=== PATIENT | male | born 1950 | race Hispanic/Latino ===

== ENCOUNTER → 2020-10-20 14:45 | Outpatient (CLI) | payer MEDICARE, SELFPAY ==
--- NOTE | ~2020-10-20 | CT_ITS ---
EXAMINATION: CT lumbar spine wo con DATE: 10/20/2020 15:22 INDICATION: Lumbar radiculopathy. TECHNIQUE: Computed tomography (CT) of the lumbar spine was performed without intravenous contrast. A utomated exposure control and iterative reconstruction technique were employed. The dose-length produ ct was 815.18 mGy-cm. COMPARISON: Lumbar spine CT 02/25/2019 FINDINGS: There is 3 degrees levocurvature of lumbar spine. There is 3 mm retrolisthesis of L3 on L4. Vertebral body heights are normal. There is mildly decreased disc height at L3-L4. The following dis c levels are specifically discussed: L1-L2: The disc does not extend beyond the endplate margin. There is mild bilateral facet joint osteo arthritis. There is no neural foraminal stenosis. There is no central canal stenosis. L2-L3: The disc is mildly bulging. There is mild bilateral facet joint osteoarthritis. There is mild bilateral neural foraminal stenosis. There is no central canal stenosis. L3-L4: The disc is bulging. There is mild bilateral facet joint osteoarthritis. There is mild bilater al neural foraminal stenosis. There is mild central canal stenosis. L4-L5: The disc is bulging. There is mild right and severe left facet joint osteoarthritis. There is mild bilateral neural foraminal stenosis. There is mild central canal stenosis. L5-S1: The disc is bulging. There is mild bilateral facet joint osteoarthritis. There is mild bilater al neural foraminal stenosis. There is mild central canal stenosis. IMPRESSION: 1. Mild lumbar spondylosis, stable from 02/25/2019. Reviewed, dictated and finalized at location A.
== END ==
PROVIDERS: Visit Provider Nurse Practitioner Adult Health
DX: M47.26 Other spondylosis with radiculopathy, lumbar region (principal)
CPT/HCPCS: 72131

== ENCOUNTER 2024-12-27 10:44 | Emergency (ER) | payer MEDICARE, SELFPAY ==
--- NOTE | ~2024-12-27 | XR_ITS ---
XR shoulder RT min 2V Ordering provider: Monika Lester MD History: . R shoulder pain . Comparison: None. FINDINGS: BONES: No acute fracture or dislocation. Cystic changes in the area of the greater tuberosity. JOINT SPACES: The acromioclavicular joint is normal. The glenohumeral joint is normal. SOFT TISSUES: Normal. IMPRESSION: No acute osseous abnormality right shoulder. Degenerative changes in the area of the greater tuberosity which may indicate rotator cuff injury. Reviewed, dictated and finalized at location A. IMPRESSION: No acute osseous abnormality right shoulder. Degenerative changes in the area of the greater tuberosity which may indicate r otator cuff injury.
--- NOTE | ~2024-12-27 | XR_ITS ---
XR chest 2V Ordering provider: Monika Lester MD History: 74 years Male with . R shoulder pain, SHARP PAIN . Comparison: December 20, 2011 FINDINGS: MEDIASTINUM: The cardiac silhouette is not enlarged. Left bipolar pacemaker. Postoperative changes in the mediastinum. LUNGS: No infiltrates, effusions or pneumothorax. OTHER: No free air under the diaphragm. IMPRESSION: No acute cardiopulmonary pathology. Reviewed, dictated and finalized at location A.
--- OUTSIDE RECORDS SUMMARY | 2024-12-27 10:49 | XMS_ITS | Patient Health Record ---
Author Organization [facility] Address [address] [facility] [address] [place] [address] Care Team Providers Care Forest Botany Instructor Name Role Phone Jasen Gonzalez Unavailable [phone] Reason For Referral No Information Medications Medication SIG (Take, Route, Frequency, Duration) Notes Start Date End Date Status Tobramycin 0.3 % 1 drop into affected eye Ophthalmic Four times a day; Duration: 3 days 12/10/2024 Active Losartan Potassium 25 MG TAKE 1 TABLET B Y MOUTH DAILY; Duration: 90 Active Calcitriol 0.25 MCG TAKE 1 CAPSULE BY MO UTH DAILY; Duration: 90 Active Flomax 0.4 MG 1 capsule Orally Onc e a day; Duration: 90 day(s) 03/26/2024 01/11/2025 Active Vitamin D (Ergocalciferol) 1.25 MG (18557 UT) TAKE ONE CAPSULE BY MOUTH ONCE A WEEK; Duration: 90 Active Problems Problem Type SNOMED Code ICD Code Onset Dates Problem Status W/U Status Risk Notes Problem Anemia (804735499) Anemia, unspecified (D64.9) Active confirmed Problem Hypothyroidism (12924040) Hypothyroidism, unspecified (E03.9) Active confirmed Problem Hyperglycemia due to type 2 diabetes mellitus (566804129977216) Type 2 diabetes mellitus with hyperglycemia (E11.65) Active confirmed Problem Hyperlipidemia (73743008) Hyperlipidemia, unspecified (E78.5) Active confirmed Problem Essential hypertension (67531726) Essential (primary) hypertension (I10) Active confirmed Problem Atrial fibrillation (33635917) Unspecified atrial fibrillation (I48.91) Active confirmed Problem Heart failure (29647815) Heart failure, unspecified (I50.9) Active confirmed Problem Proteinuria (84099928) Proteinuria, unspecified (R80.9) Active confirmed Problem Tobacco use (594870112) Tobacco use (Z72.0) Active confirmed Problem Elevated PSA (653144570) Elevated prostate specific antigen (PSA) (R97.20) Active confirmed Problem Chronic kidney disease stage 3A (disorder) (574132900) Chronic kidney disease, stage 3a (N18.31) Active confirmed Problem Elevation of levels of liver transaminase levels (R74.01) Active confirmed Problem Coronary artery disease (23338887) CAD (coronary artery disease) (I25.10) Active confirmed Encounters Encounter Location Date Provider Diagnosis [place] [facility] [address] [place] [address] 01/09/2024 Jasen Singh Chronic kidney disease, stage 3a N18.31 ; Essential (primary) hypertension I10 ; Heart failure, unspecified I50.9 ; Anemia, unspecified D64.9 ; Type 2 diabetes mellitus with hyperglycemia E11.65 and Hypothyroidism, unspecified E03.9 [place] [facility] [address] [place] [address] 03/26/2024 Jasen Singh Chronic kidney disease, stage 3a N18.31 ; Essential (primary) hypertension I10 ; Heart failure, unspecified I50.9 ; Anemia, unspecified D64.9 ; Type 2 diabetes mellitus with hyperglycemia E11.65 and Hypothyroidism, unspecified E03.9 [facility] [place] [facility] [address] [place] [address] 07/08/2024 Jasen Gonzalez Chronic kidney disease, stage 3a N18.31 ; CAD (coronary artery disease) I25.10 ; Hyperkalemia E87.5 and Hyperlipidemia, unspecified E78.5 [place] [facility] [address] [place] [address] 08/13/2024 Jasen Gonzalez Chronic kidney disease, stage 3a N18.31 ; Essential (primary) hypertension I10 ; Heart failure, unspecified I50.9 ; Anemia, unspecified D64.9 ; Type 2 diabetes mellitus with hyperglycemia E11.65 ; Hypothyroidism, unspecified E03.9 ; CAD (coronary artery disease) I25.10 ; Hyperlipidemia, unspecified E78.5 ; Elevation of levels of liver transaminase levels R74.01 and Elevated prostate specific antigen (PSA) R97.20 [place] [facility] [address] [place] [address] 09/16/2024 Jasen Gonzalez Chronic kidney disease, stage [...] Proteinuria, unspecified R80.9 and Tobacco use Z72.0 [place] [facility] [address] [place] [address] 09/17/2024 [facility] Office [address] [place] [address] 10/29/2024 Jasen Gonzalez Chronic kidney disease, stage [...] of levels of liver transaminase levels R74.01 [facility] [address] [place] [address] 12/10/2024 Jasen Gonzalez Chronic kidney disease, stage [...] of levels of liver transaminase levels R74.01 [place] [facility] [address] [place] [address] [facility] [address] [place] [address] [facility] [address] [place] [address] 12/10/2024 Jasen Gonzalez [place] [facility] [address] [facility] [address] [place] [address] 03/26/2024 Jasen Gonzalez [facility] [place] [facility] [address] [place] [address] 04/06/2024 Jasen Gonzalez [place] [facility] [address] [facility] [address] [place] [address] 04/16/2024 Jasen Gonzalez Assessments Encounter Date Diagnosis (ICD Code) Assessment Notes Treatment Notes Treatment Clinical Notes Section Notes 01/09/2024 Chronic kidney disease, stage 3a (ICD-10 - N18.31) 03/26/2024 Chronic kidney disease, stage 3a (ICD-10 - N18.31) 07/08/2024 Chronic kidney disease, stage 3a (ICD-10 - N18.31) 07/08/2024 CAD (coronary artery disease) (ICD-10 - I25.10) 08/13/2024 Essential (primary) hypertension (ICD-10 - I10) 08/13/2024 Chronic kidney disease, stage 3a (ICD-10 - N18.31) 09/16/2024 Chronic kidney disease, stage 2 (mild) (ICD-10 - N18.2) 10/29/2024 Chronic kidney disease, stage 2 (mild) (ICD-10 - N18.2) 12/10/2024 Chronic kidney disease, stage 3a (ICD-10 - N18.31) 12/10/2024 Essential (primary) hypertension (ICD-10 - I10) 10/29/2024 Essential (primary) hypertension (ICD-10 - I10) 09/16/2024 Essential (primary) hypertension (ICD-10 - I10) 08/13/2024 Heart failure, unspecified (ICD-10 - I50.9) 07/08/2024 Hyperkalemia (ICD-10 - E87.5) 03/26/2024 Essential (primary) hypertension (ICD-10 - I10) 01/09/2024 Essential (primary) hypertension (ICD-10 - I10) 01/09/2024 Heart failure, unspecified (ICD-10 - I50.9) 03/26/2024 Heart failure, unspecified (ICD-10 - I50.9) 07/08/2024 Hyperlipidemia, unspecified (ICD-10 - E78.5) 08/13/2024 Anemia, unspecified (ICD-10 - D64.9) 09/16/2024 Heart failure, unspecified (ICD-10 - I50.9) 10/29/2024 Heart failure, unspecified (ICD-10 - I50.9) 12/10/2024 Heart failure, unspecified (ICD-10 - I50.9) 12/10/2024 Anemia, unspecified (ICD-10 - D64.9) 10/29/2024 Anemia, unspecified (ICD-10 - D64.9) 08/13/2024 Type 2 diabetes mellitus with hyperglycemia (ICD-10 - E11.65) 09/16/2024 Anemia, unspecified (ICD-10 - D64.9) 03/26/2024 Anemia, unspecified (ICD-10 - D64.9) 01/09/2024 Anemia, unspecified (ICD-10 - D64.9) 01/09/2024 Type 2 diabetes mellitus with hyperglycemia (ICD-10 - E11.65) 08/13/2024 Hypothyroidism, unspecified (ICD-10 - E03.9) 03/26/2024 Type 2 diabetes mellitus with hyperglycemia (ICD-10 - E11.65) 09/16/2024 Type 2 diabetes mellitus with hyperglycemia (ICD-10 - E11.65) 10/29/2024 Type 2 diabetes mellitus with hyperglycemia (ICD-10 - E11.65) 12/10/2024 Type 2 diabetes mellitus with hyperglycemia (ICD-10 - E11.65) 10/29/2024 Hypothyroidism, unspecified (ICD-10 - E03.9) 12/10/2024 Hypothyroidism, unspecified (ICD-10 - E03.9) 08/13/2024 CAD (coronary artery disease) (ICD-10 - I25.10) 09/16/2024 Hypothyroidism, unspecified (ICD-10 - E03.9) 03/26/2024 Hypothyroidism, unspecified (ICD-10 - E03.9) 01/09/2024 Hypothyroidism, unspecified (ICD-10 - E03.9) 08/13/2024 Hyperlipidemia, unspecified (ICD-10 - E78.5) 10/29/2024 CAD (coronary artery disease) (ICD-10 - I25.10) 09/16/2024 CAD (coronary artery disease) (ICD-10 - I25.10) 12/10/2024 CAD (coronary artery disease) (ICD-10 - I25.10) 12/10/2024 Hyperlipidemia, unspecified (ICD-10 - E78.5) 10/29/2024 Hyperlipidemia, unspecified (ICD-10 - E78.5) 08/13/2024 Elevation of levels of liver transaminase levels (ICD-10 - R74.01) 09/16/2024 Hyperlipidemia, unspecified (ICD-10 - E78.5) 08/13/2024 Elevated prostate specific antigen (PSA) (ICD-10 - R97.20) 09/16/2024 Elevated prostate specific antigen (PSA) (ICD-10 - R97.20) 10/29/2024 Elevated prostate specific antigen (PSA) (ICD-10 - R97.20) 12/10/2024 Elevated prostate specific antigen (PSA) (ICD-10 - R97.20) 12/10/2024 Unspecified atrial fibrillation (ICD-10 - I48.91) 10/29/2024 Unspecified atrial fibrillation (ICD-10 - I48.91) 09/16/2024 Unspecified atrial fibrillation (ICD-10 - I48.91) 09/16/2024 Proteinuria, unspecified (ICD-10 - R80.9) 10/29/2024 Proteinuria, unspecified (ICD-10 - R80.9) 12/10/2024 Proteinuria, unspecified (ICD-10 - R80.9) 12/10/2024 Tobacco use (ICD-10 - Z72.0) 10/29/2024 Tobacco use (ICD-10 - Z72.0) 09/16/2024 Tobacco use (ICD-10 - Z72.0) 10/29/2024 Elevation of levels of liver transaminase levels (ICD-10 - R74.01) 12/10/2024 Elevation of levels of liver transaminase levels (ICD-10 - R74.01) Plan Of Treatment Next Appt Details Provider Name:Jasen Gonzalez , 02/11/2025 03:15:00 PM, [address], [facility] [address], [address],
--- OUTSIDE RECORDS SUMMARY | 2024-12-27 10:50 | XMS_ITS | Data Portability ---
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 Had this now for some time. He has had a previous repair of his right rotator cuff he says it feels very similar to that. He has difficulty raising his arm above the horizontal he is weak in abduction external rotation neurologically he is grossly intact. He has good neck motion without much in the way of radicular symptoms. His x-rays demonstrate narrowing of the acromial humeral space type 2 acromion and some AC joint arthrosis. He also has a pacemaker and defibrillator which certainly makes treatment and obtaining an MRI much more difficult. I injected his left shoulder with 20 mg Kenalog 4 cc 1% lidocaine. For prescription drug management will try a prednisone taper for pain and inflammation. Will also begin a course of therapy and see how he progresses. Anticipate follow-up in a month at discussed. yazan Not available 09/03/2022 11:03:03 10/01/2022 10/01/2022 Patient returns pain left shoulder. He has symptoms suggesting rotator cuff pathology. He has had cortisone therapy without a lot of relief he continues to be symptomatic. Get has give-way and impingement of the left shoulder he has had previous surgery on his right shoulder. Complicating his treatment is the fact he has congestive heart failure he has a pacemaker and has dependence on oxygen. Which make surgery a difficult undertaking. We will obtain an arthrogram with a CT to follow this if there is rotator cuff tearing shoulder in the meantime will continue with therapy and for prescription drug management will try Voltaren 75 mg twice a day. Patient says he has been taking Advil Aleve and gets some relief when he takes those. yazan Not available 10/01/2022 11:00:08 Plan of Treatment Reminders Order Date Submit Date Provider Last Modified By Organization Details Last Modified Time Details Appointments None recorded. Lab None recorded. Referral physical therapist referral - please contact patient to schedule 2022 023 [facility], [address] [place], [address], 11:20:36 Procedures injection/ aspiration joint/burs a (PROC) - in office procedure, administer ed by provider 2022 023 [email or web address] In-Office Order, Internal Use Only DO Not Attach Compendium DO Not Attach Compendium, Do Not Delete/merge, [id number] 10:14:17 Surgeries None recorded. Imaging CT, arthrogram , shoulder - patient to schedule 2022 023 [facility] ([facility]), [address] [place], [address], 12:30:51 XR, shoulder 2022 023 [email or web address] 58 [facility], [address] [place], [address], 3 11:03:36 Medication Orders diclofenac sodium 75 mg tablet,del ayed release 2022 023 [email or web address] 58 [facility]77, [address], [place], [id number], 3 11:00:22 Kenalog 10 mg/mL suspension for injection 2022 023 [email or web address] 58 [facility], [address], [place], [id number], 3 10:45:33 ropivacain e (PF) 5 mg/mL (0.5 %) injection solution 2022 023 [email or web address] 58 [facility] #43203, [address], [place], [id number], 3 10:45:33 prednisone 10 mg tablets in a dose pack 2022 023 [email or web address] #51990, [address], [place], [id number], 10:45:33 Patient TargetsNo targets recorded. Patient InstructionsNo instructions recorded. Reason for Referral Physical Therapist Referral for Pain of left shoulder joint please contact patient to schedule Referring Physician: Nery Carrera, Orthopedic Surgery, Encounter Date: 09/03/2022 Results Created Date Observation Date Name Description Value Unit Range Abnormal Flag Note LastModifiedBy Organization Detail LastModifiedTime 12/21/19 22 12/19/2021 LDCT, chest , for lung cance r georgia lucasg No observ ation record ed. [id number] [facility] [address] [place], [address], 08/14/2022 00:56:51 09/04/19 23 XR, tammy stevenson No observ ation record ed. [email or web address] [facility] [address] [facility], [place], [address], 09/03/2022 11:03:35 01/02/20 23 01/01/2023 CT, tammy stevenson, w/ contr ast [facility] [address] [facility] [place] [address] Patien t Name: GEOFFREYTRA Nati KWADWO Access ion #: [id number] Sex: M : 1949 8 Locati on: RAD Attend ing Physic dann: DEBI ONNERY Orderi ng Physic dann: DEBI ONNERY Exam Date: 023 9:01 AM Exam Name: CT SHOULD ER LT W Admitt ing Diagno sis(es ): RADIOL OGY REPORT - FINAL EXAM: CT SHOULD ER LT W HISTOR Y: 72-yea r-old male with left should er pain. The patien t is not compat ible with MRI second mani to a left chest AICD. COMPAR YEE: Radiog raphs dated 2022; CT scan dated 2020. TECHNI QUE: Axial CT images of the left should er were perfor med after fluoro scopic -guide d left glenoh umeral joint intra- articu lar contra st inject ion. Sagitt al and park l reform atted images were obtain ed. This CT exam was perfor med using one or more of the follow ing dose reduct ion techni ques: Automa mayra exposu re contro l, adjust ment of the mA and/or kV accord ing to patien t size, or use of iterat liberty recons tructi on techni que. FINDIN GS: Page 1 of 3 [facility] Patien t Name: JAZMÍN VIEIRA Access ion #: [id number] Sex: M : 1949 8 Exam Date: 023 9:01 AM Exam Name: CT SHOULD ER LT W Admitt ing Diagno sis(es ): See below. IMPRES ANDREA: 1. No fractu re of the left should er. 2. Full-t hickne ss tear of the spinat us tendon involv es a majori ty of the AP tendon width, with gap measur ing 2.6 cm AP x 2.1 cm longit udinal , with a small slip of the supras pinatu s tendon remain ing intact high reach operator iorly. As a result , inject ed contra st is presen t in the subacr omial- subdel toid region . 3. Irregu lar partia l-thic kness intras ubstan ce tears of the infras pinatu s tendon which may commun icate with the articu lar and/or bursal surfac es. 4. The long head of the biceps tendon is not well charac terize d here. It is uncert ain if this may be artifa ctual or due to tear and distal retrac tion of the tendon . 5. Probab le degene rative tear of the high reach operator ior labrum (image s 122-14 2, series 201). 6. Acromi oclavi cular hypert rophy, type 2 curved acromi on, latera lly downsl oping acromi on, and mild loss of latera l subacr omial space. These findin gs are simila r to that seen on CT scan dated 2020. 7. Narrow ing of the coraco dixie l interv al withou t eviden ce of focal or full-t hickne ss tear of the subsca pulari s tendon . 8. 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 Create d and electr onical ly signed by: Sedrick talley MD Signed Date: 11:21 AM (CT) Dictat ed by: Sedrick talley MD DD: 11:21 AM (CT) Page 2 of 3 [facility] Patien t Name: JAZMÍN VIEIRA Access ion #: [id number] Sex: M : 1949 8 Exam Date: 9:01 AM Exam Name: CT SHOULD ER LT W Admitt ing Diagno sis(es ): DT: 11:21 AM (CT) Page 3 of [address] (Imaging) [address] [place], [address], 01/01/2023 12:39:07 01/02/20 23 01/01/2023 xr inj pro shou arthr w/rep ort [facility] [address] [facility] [place] [address] Patien t Name: JAZMÍN VIEIRA Access ion #: [id number] Sex: M : 1949 8 Locati on: RAD Attend ing Physic dann: DEBI ONNERY Orderi ng Physic dann: DEBI ON NERY Exam Date: 023 8:23 AM Exam Name: XR INJ PRO SHOU ARTHR W/REPO RT Admitt ing Diagno sis(es ): RADIOL OGY REPORT - FINAL EXAM: XR INJ PRO SHOU ARTHR W/REPO RT HISTOR Y: PAIN LT SHOULD ER 72-yea r-old male with left should er pain for 3 years, no known injury . COMPAR YEE: None availa ble. TECHNI QUE: CONTRA ST MIXTUR E: 13 ml Isovue [address] Fluoro time: 0.3 minute s; DAP: 0.298 Gy.cm2 ; 3 fluoro scopic spot views were perfor med. EXPLAN ATION: Risks and benefi ts of the proced ure were discus sed with the patien t, includ ing risks of bleedi ng, infect ion, and allerg ic reacti on. The patien t agreed to procee d and gave inform ed consen t. The left should er was marked on the skin anteri harpal, and the patien t agreed that this was the correc t should er. Time-o ut was perfor med. Page 1 of 3 [facility] Elkin hilliard Name: JAZMÍN VIEIRA Access ion #: [id number] Sex: M : 1949 8 Exam Date: 023 8:23 AM Exam Name: XR INJ PRO SHOU ARTHR W/REPO RT Admitt ing Diagno sis(es ): PROCED URE: The patien t was placed in supine positi on on the fluoro scopy table. The left should er was evalua mayra fluoro scopic ally, in the upper arm was positi oned so that the should er was in ocean export coordinator al rotati on. The contra latera l should er was elevat ed off the table. The skin of the anteri or aspect of the left should er was preppe d and draped steril aleah with Betadi ne. The skin and subcut aneous tissue s were anesth etized with 1% lidoca ine withou t epinep hrine. A 22 gauge spinal needle was advanc ed under fluoro scopic guidan ce into the glenoh umeral joint. Test inject ion of iodina mayra contra st was used to confir m placem ent. Fluoro scopic spot film was obtain ed. Thirte en ml of Isovue [address] were then inject ed into the left glenoh umeral joint. The needle was remove d. Spot films were obtain ed. The skin was cleans ed, and a small bandag e was placed . The patien t tolera mayra the proced ure well, and there were no immedi ate compli cation s. The patien t was transf erred to the CT suite for furthe r imagin g. FINDIN GS: Please see report of CT arthro gram. IMPRES ANDREA: 1. Succes sful left glenoh umeral contra st inject ion. 2. For detail s of findin gs, please see report of CT arthro gram to follow . Create d and electr onical ly signed by: Sedrick talley MD Signed Date: 12:11 PM (CT) Page 2 of 3 [facility] Elkin hilliard Name: JAZMÍN VIEIRA Access ion #: [id number] Sex: M : 1949 8 Exam Date: 023 8:23 AM Exam Name: XR INJ PRO SHOU ARTHR W/REPO RT Admitt ing Diagno sis(es ): Dictat ed by: Sedrick talley MD DD: 12:11 PM (CT) DT: 12:11 PM (CT) Page 3 of [address] (Imaging) [address] [place], [address], 01/01/2023 13:29:05 07/07/19 24 07/02/2023 US, kidne y No observ ation record ed. [email or web address] [facility] [address], [place], [address], 07/16/2023 11:13:43 04/09/2004/08/2024 truei ng/concepcion popmaikel tic resul t No observ ation record ed. [email or web address] [facility] [address], [place], [address], 04/12/2024 08:57:31 Result Notes Documentation Provider Name and Address Organization Details Recorded Time Ct, Shoulder, W/ Contrast : [address] [address] Patient Name: JAZMÍN RAMOS Sex: M : 1950 Location: [facility] Attending Physician: NERY CARRERA Ordering Physician: NERY CARRERA Exam Date: 01/01/2023 9:01 AM Exam Name: CT SHOULDER LT W Admitting Diagnosis(es): RADIOLOGY REPORT - FINAL EXAM: CT SHOULDER LT W HISTORY: 72-year-old male with left shoulder pain. The patient is not compatible with MRI secondary to a left chest AICD. COMPARISON: Radiographs dated 09/03/2022; CT scan dated 08/12/2020. TECHNIQUE: Axial CT images of the left shoulder were performed after fluoroscopic-guided left glenohumeral joint intra-articular contrast injection. Sagittal and coronal reformatted images were obtained. This CT exam was performed using one or more of the following dose reduction techniques: Automated exposure control, adjustment of the mA and/or kV according to patient size, or use of iterative reconstruction technique. FINDINGS: Page 1 of 3 [facility] Patient Name: JAZMÍN RAMOS Sex: M : 1950 Exam Date: 01/01/2023 9:01 AM Exam Name: CT SHOULDER LT W Admitting Diagnosis(es): See below. IMPRESSION: 1. No fracture of the left shoulder. 2. Full-thickness tear of the spinatus tendon involves a majority of the AP tendon width, with gap measuring 2.6 cm AP x 2.1 cm longitudinal, with a small slip of the supraspinatus tendon remaining intact posteriorly. As a result, injected contrast is present in the subacromial-subdeltoid region. 3. Irregular partial-thickness intrasubstance tears of the infraspinatus tendon which may communicate with the articular and/or bursal surfaces. 4. The long head of the biceps tendon is not well characterized here. It is uncertain if this may be artifactual or due to tear and distal retraction of the tendon. 5. Probable degenerative tear of the posterior labrum (images 122-142, series 201). 6. Acromioclavicular hypertrophy, type 2 curved acromion, laterally downsloping acromion, and mild loss of lateral subacromial space. These findings are similar to that seen on CT scan dated 08/12/2020. 7. Narrowing of the coracohumeral interval without evidence of focal or full-thickness tear of the subscapularis tendon. 8. Cardiomegaly, extensive coronary artery disease, and left chest AICD. Created and electronically signed by: Sedrick Lopez MD Signed Date: 01/01/2023 11:21 AM (CT) Dictated by: Sedrick Lopez MD (CT) Page 2 of 3 [facility] Patient Name: JAZMÍN RAMOS Sex: M : 1950 Exam Date: 01/01/2023 9:01 AM Exam Name: CT SHOULDER LT W Admitting Diagnosis(es): (CT) Page 3 of [address] 01/01/2023 12:39:07 Problems Name Problem SNOMED Code Status Onset Date Resolution Date Notes Provider Name and Address Organization Details Recorded Time Pain of left shoulder joint 52993959006 508160 Active 2022 JOSELO Sal, [employer] 3 09:57:42 Asthma-ch ronic obstructi ve pulmonary disease overlap syndrome 35150040214 892306 Active 2021 Not Available [facility] 3 00:50:06 Hyperchol esterolem ia 39699690 Active Not Available [facility] 3 00:50:06 Chronic obstructi ve pulmonary disease 65947545 Completed 201911/16/2020 Not Available [facility] 3 00:50:06 Disorder of thyroid gland 77592544 Active Not Available [facility] 3 00:50:06 Increased frequency of urination 555529500 Active Not Available [facility] 3 00:50:06 Myocardia l infarctio n 86997304 Active 2019 Not Available [facility] 3 00:50:06 Anemia 826136869 Active Not Available [facility] 3 00:50:06 Arthritis 0153533 Active Not Available [facility] 3 00:50:06 Hypertens liberty disorder 20691674 Active Not Available [facility] 3 00:50:06 Prostate specific antigen above reference range 223348320 Active Not Available [facility] 3 00:50:06 Congestiv e heart failure 14605832 Active 2019 Not Available [facility] 3 00:50:07 Disorder of bursa of shoulder region 55344133 Active Not Available [facility] 3 00:50:07 Nicotine dependenc e 08616444 Active 2021 Not Available [facility] 3 00:50:07 Carpal tunnel syndrome 67188834 Active Not Available [facility] 3 00:50:07 Dyspnea on exertion 05703443 Active 2021 Not Available [facility] 3 00:50:07 Obstructi ve sleep apnea syndrome 71587496 Active 2021 Not Available [facility] 3 00:50:07 Ex-smoker 6055626 Active 2020 Not Available [facility] 3 00:50:07 Erectile dysfuncti on 659670744 Active 2021 Not Available [facility] 3 00:50:07 Pulmonary emphysema 13411421 Active Not Available [facility] 3 00:50:07 Dependenc e on supplemen zenaida [employer] 27889034551 7 Active 2021 Not Available [facility] 3 00:50:07 Notes:Past Medical History: Depression Bilateral tinnitus Hypothyroidism Hyperlipidemia Mild intermittent asthma Hypertension Hyperlipidemia CAD s/p OR LVE CHF EF 25% Mild NM BPH Vit D deficiency Osteoarthritis CTS Surgical History: Defibirllator placement 2017 Some problems listed in Document: #[id number] could not be added to this patient's chart. Please review this document and add these problems to the patient's chart manually as needed. Problem Notes None recorded. Procedures Surgical History Date Name Laterality Status Provider Name and Address Organization Details Recorded Time 3 Ortho - Cortisone Injection completed Nery Carrera MD [address] [place] [address], [place] [address], [place], [address], [facility] [employer] 09/03/2022 11:02:00 Imaging Results None recorded. Procedure Notes None recorded. Medical Equipment None Reported. Allergies No known drug allergies Medications Name Sig Start Date Stop Date Status Note LastModified by Organization Details LastModified Time cyclobenzap rine 10 mg tablet TAKE 1 TABLET BY MOUTH EVERY DAY AT BEDTIME 02/22 completed Not Available Not Available Not Available furosemide 40 mg tablet TAKE 1 TABLET BY MOUTH EVERY DAY active Not Available Not Available No t Available promethazin e-DM 6.25 mg-15 mg/5 mL oral syrup 05/02 completed Not Available Not Available Not Available levothyroxi ne 137 mcg tablet TK 1 T PO ONCE D active Not Available Not Available No t Available carvedilol 6.25 mg tablet TAKE 1 TABLET BY MOUTH TWICE DAILY active Not Available Not Available No t Available prednisone 10 mg tablet TK 1 T PO TID FOR 3 DAYS THEN TK 1 T PO BID FOR 2 DAYS THEN TK 1 T PO FOR 1 DAY active Not Available Not Available No t Available azithromyci n 250 mg tablet active Not Available Not Available Not Available ibuprofen 800 mg tablet TAKE 1 TABLET BY MOUTH THREE TIMES DAILY active Not Available Not Available No t Available alprazolam 1 mg tablet TK 1 T PO BID active Not Available Not Available No t Available prednisone 20 mg tablet active Not Available Not Available Not Available clonazepam 0.5 mg tablet TK 1 T PO TID active Not Available Not Available No t Available clobetasol 0.05 % topical cream RUB IN AA BID 11/13 completed Not Available Not Available Not Available ciprofloxac in 500 mg tablet Take 1 tablet twice a day by oral route. active Not Available Not Available No t Available hydrocodone 10 mg-acetamin ophen 325 mg tablet TAKE 1 TABLET BY MOUTH THREE TIMES DAILY active Not Available Not Available No t Available peg-electro lyte solution 420 gram oral solution active Not Available Not Available Not Available triamcinolo ne acetonide 0.1 % topical cream ALICJA A THIN LAYER AA BID active Not Available Not Available No t Available spironolact one 25 mg tablet TAKE 1 TABLET BY MOUTH EVERY DAY active Not Available Not Available No t Available simvastatin 40 mg tablet TAKE 1 TABLET BY MOUTH EVERY DAY active Not Available Not Available No t Available levothyroxi ne 75 mcg tablet TK ONE T PO D active Not Available Not Available No t Available prednisone 10 mg tablets in a dose pack Take 1 tab by mouth, 3 times a day for 3 daysTake 1 tab by mouth 2 times a day for 2 daysTake 1 tab by mouth once a day for 1 day 2022 active Not Available Not Available Not Avai lable levothyroxi ne 100 mcg tablet TAKE 1 TABLET BY MOUTH EVERY DAY ON AN EMPTY STOMACH active Not Available Not Available No t Available potassium chloride ER 20 mEq tablet,exte nded release(par t/cryst) TK 1 T PO D active Not Available Not Available No t Available magnesium oxide 400 mg (241.3 mg magnesium) tablet TAKE 1 TABLET BY MOUTH EVERY DAY active Not Available Not Available No t Available tamsulosin 0.4 mg capsule TK 1 C PO QD AFTER A MEAL 05/02 completed Not Available Not Available Not Available Kenalog 10 mg/mL suspension for injection in office 2022 active [facility]: 0003- [phone]- 20 Not Available Not Available Not Available levothyroxi ne 125 mcg tablet TK 1 T PO QD IN THE MORNING active Not Available Not Available No t Available calcipotrie ne 0.005 % topical cream APPLY AA BID UTD active Not Available Not Available No t Available lisinopril 10 mg tablet TK 1 T PO QD active Not Available Not Available No t Available losartan 25 mg tablet TK 1 T PO QD 05/02 completed Not Available Not Available Not Available nicotine 21 mg/24 hr daily transdermal patch APPLY 1 PATCH EXTERNALL Y TO THE SKIN EVERY DAY 06/26 completed Not Available Not Available Not Available gabapentin 300 mg capsule TAKE 2 CAPSULES BY MOUTH THREE TIMES DAILY active Not Available Not Available No t Available Banophen 25 mg capsule TK 1 T PO QD HS active Not Available Not Available No t Available diclofenac sodium 75 mg tablet,kurt yed release TAKE 1 TABLET BY MOUTH TWICE DAILY 2022 active Not Available Not Available Not Avai lable furosemide 20 mg tablet TAKE 1 TABLET BY MOUTH EVERY DAY 04/19 completed Not Available Not Available Not Available ergocalcife rol (vitamin D2) 1,250 mcg (50,000 unit) capsule TAKE 1 CAPSULE BY MOUTH EVERY 2 WEEKS WITH MEALS active Not Available Not Available No t Available clobetasol 0.05 % topical ointment APPLY THIN LAYER TOPICALLY TO THE AFFECTED AREA TWICE DAILY 02/22 completed Not Available Not Available Not Available Viagra 100 mg tablet Take 1 tablet as needed by oral route. 05/02 completed Not Available Not Available Not Available diazepam 10 mg tablet TK 1 T PO 1 HOUR BEFORE PROCEDURE 05/02 completed Not Available Not Available Not Available methylpredn isolone 4 mg tablets in a dose pack FPD active Not Available Not Available Not Available albuterol sulfate HFA 90 mcg/actuati on aerosol inhaler Inhale 2 puffs every 4-6 hours by inhalatio n route for 30 days. active Not Available Not Available No t Available finasteride 5 mg tablet TAKE 1 TABLET BY MOUTH EVERY DAY 06/26 completed Not Available Not Available Not Available naproxen 500 mg tablet TK 1 T PO BID active Not Available Not Available No t Available levothyroxi ne 112 mcg tablet TAKE 1 TABLET BY MOUTH EVERY DAY IN THE MORNING 06/26 completed Not Available Not Available Not Available amoxicillin 875 mg-potassiu m clavulanate 125 mg tablet TAKE 1 TABLET BY MOUTH EVERY 12 HOURS FOR 10 DAYS 02/22 completed Not Available Not Available Not Available Laxative (bisacodyl) 5 mg tablet TAKE 6 TABLETS BY MOUTH AT 8AM ON 04-23 active Not Available Not Available No t Available duloxetine 30 mg capsule,del ayed release 11/13 completed Not Available Not Available Not Available duloxetine 60 mg capsule,del ayed release TAKE 1 CAPSULE BY MOUTH EVERY DAY 02/22 completed Not Available Not Available Not Available omega-3 acid ethyl esters 1 gram capsule TAKE 1 CAPSULE BY MOUTH ONCE DAILY WITH A MEAL 04/19 completed Not Available Not Available Not Available Fish Oil 340 mg-1,000 mg capsule TAKE 1 CAPSULE BY MOUTH TWICE DAILY WITH FOOD 09/03 completed Not Available Not Available Not Available cholecalcif otto (vitamin D3) 1,250 mcg (50,000 unit) capsule TAKE 1 CAPSULE BY MOUTH EVERY WEEK WITH MEALS 06/26 completed Not Available Not Available Not Available Voltaren 1 % topical gel APPLY 2 GRAMS AA QID 05/02 completed Not Available Not Available Not Available Toviaz 8 mg tablet,exte nded release Take 1 tablet every day by oral route. 05/02 completed Not Available Not Available Not Available Prevnar 13 (PF) 0.5 mL intramuscul ar syringe ADM 0.5ML IM UTD active Not Available Not Available No t Available ropivacaine (PF) 5 mg/mL (0.5 %) injection solution in office 2022 active [facility] [phone] Not Available Not Available Not Available omega 3s 300 mg-dha-epa- fish oil 1,000 mg capsule,del ayed release TAKE 1 CAPSULE BY MOUTH TWICE DAILY WITH MEALS FOR 30 DAYS active Not Available Not Available No t Available Pennsaid 20 mg/gram/act uation (2 %) topical soln in metered-dos e pump APPLY 2 PUMPS TO THE AFFECTED AREAS TWO TIMES DAILY active Not Available Not Available No t Available potassium chloride ER 20 mEq tablet,exte nded release TAKE 1 TABLET BY MOUTH DAILY 04/19 completed Not Available Not Available Not Available Anoro Ellipta 62.5 mcg-25 mcg/actuati on powder for inhalation INHALE 1 PUFF BY MOUTH EVERY DAY DIRECTED 09/03 completed Not Available Not Available Not Available Stiolto Respimat 2.5 mcg-2.5 mcg/actuati on solution for inhalation Inhale 2 puffs every day by inhalatio n route as directed for 30 days. 11/13 completed Not Available Not Available Not Available Entresto 24 mg-26 mg tablet TAKE 1 TABLET BY MOUTH TWICE DAILY active Not Available Not Available No t Available Trelegy Ellipta 100 mcg-62.5 mcg-25 mcg powder for inhalation Inhale 1 puff every day by inhalatio n route as directed for 30 days. 02/22 completed Not Available Not Available Not Available Gloria Segundo 250 mcg-50 mcg/dose powder for inhalation active Not Available Not Available N ot Available COVID-19 test specimen collection TEST DIRECTED 11/13 completed Not Available Not Available Not Available Vitals Date Recorded Body height Provider Name an d Address Organization Details Last Updated DateTime 06/26/2021 162.56 cm Not Available [facility] 3 00:49:04 Date Recorded Body height Provider Name an d Address Organization Details Last Updated DateTime 09/03/2022 162.56 cm JOSELO Sal [facility] 09/03/2022 09:56:18 Date Recorded Body height Body mass index (BMI) Body weight Provider Name and Address Organization Details Last Updated DateTime 10/01/2022 162.56 cm 31.8 kg/m2 46143.59 g NESS Cali ND Marco Vasco [facility] 10/01/2022 10:26:29 Date Recorded Body mass index (BMI) Body height Oxygen saturation Oxygen saturation in Arterial blood by Pulse oximetry Heart rate Body temperature Body weight Systolic And Diastolic Provider Name and Address Organization Details Last Updated DateTime 2 30.6 kg/m2 162.56 cm 97 % 97 % 65 /min 98.1 [degF] 60777.4 4 g 121/69 mm[Hg] Not Available [facility] 3 00:49:03 Date Recorded Body mass index (BMI) Body height Oxygen saturation Oxygen saturation in Arterial blood by Pulse oximetry Heart rate Body temperature Body weight Provider Name and Address Organization Details Last Updated DateTime 2 30.6 kg/m2 162.56 cm 97 % 97 % 70 /min 97.9 [degF] 86943.4 4 g Not Available [facility] 3 00:49:05 Social History Question Answer Notes LastModified by Organizat ion Details LastModified Time Tobacco Smoking Status Current Every Day Smoker Not Available [facility] 08/14/2022 00:43:58 What Was The Date Of Your Most Recent Tobacco Screening? 08/16/2020 [id number] Information not available 08/14/2022 How Much Tobacco Do You Smoke? 0.5 PPD [id number] Information not available 08/14/2022 Has Tobacco Cessation Counseling Been Provided? No [id number] Information not available 08/14/2022 Sex: Unknown Functional Status Question Answer Note LastModified by Organizat ion Details LastModified Time Do you use any illicit or recreational drugs? No [id number] Information not available 08/14/2022 Do you or have you ever used any other forms of tobacco or nicotine? No [id number] Information not available 08/14/2022 Mental Status None recorded. Family History Relationship Description Onset Age of this Age Resolved Age Notes LastModified by Organization Details LastModified Time Brother Diabetes mellitus [id number] Not available 08/14/2022 00:44:23 Brother Hypertensive disorder [id number] Not available 08/14/2022 00:44:23 Father Diabetes mellitus [id number] Not available 08/14/2022 00:44:23 Father Hypertensive disorder [id number] Not available 08/14/2022 00:44:23 Sister Diabetes mellitus [id number] Not available 08/14/2022 00:44:23 Sister Kidney stone [id number] Not available 08/14/2022 00:44:23 Mother Diabetes mellitus [id number] Not available 08/14/2022 00:44:23 Daughter Heart disease [id number] Not available 08/14/2022 00:44:23 Medical History Condition Response ARTHRITIS Y COPD Y HEART DISEASE/HEART PROBLEMS Y HYPERTENSION Y Immunizations Vaccine Type Date Status Note Provider Nam e and Address Organization Details Recorded Time Influenza, split virus, quadrivalent, preservative 5 completed Not Available [facility] 08/14/2022 00:56:23 COVID-19, mRNA, LNP-S, PF, 100 mcg/0.5mL dose or 50 mcg/0.25mL dose 1 completed Not Available [facility] 08/14/2022 00:56:23 COVID-19, mRNA, LNP-S, PF, 100 mcg/0.5mL dose or 50 mcg/0.25mL dose 1 completed Not Available [facility] 08/14/2022 00:56:23 Influenza, high-dose, quadrivalent, PF 0 completed Not Available [facility] 08/14/2022 00:56:24 pneumococcal polysaccharide PPV23 0 completed Not Available [facility] 08/14/2022 00:56:24 Past Encounters Encounter ID Performer Location Encounter Start Date Encounter Closed Date Diagnosis/Indication Diagnosis SNOMED-CT Code Diagnosis ICD10 Code Diagnosis Note [id number] Brook Tian MD [facility] [address] [facility] [address] [place] [address] 08/16/2020 00:00:00 09/06/2020 16:37:24 [id number] Edward Johnson MD [facility] [place] [address] [address] 11/16/2020 00:00:00 11/16/2020 16:05:37 [id number] [facility] [place] [address] [facility] [address] [place] [address] 06/26/2021 00:00:00 06/26/2021 16:10:31 [id number] Aubrey Robledo MD [facility] [address] [place] [id number] 02/22/2022 00:00:00 02/22/2022 16:59:24 [id number] Aubrey Robledo MD [facility] [address] [place] [phone] 04/19/2022 00:00:00 04/19/2022 15:54:37 [id number] Nery Carrera MD [facility] [address] [address] 09/03/2022 09:31:08 09/03/2022 10:33:49 Pain of left shoulder joint 2979058126 6758946 M25.512 [id number] Nery Carrera MD [facility] [address] [address] 10/01/2022 10:17:16 10/01/2022 11:02:17 Pain of left shoulder joint 8744114514 [id number] M25.512 Health Concerns Section Related Observation LastModified by Organization Detai ls LastModified Time None Recorded Concern Status LastModified by Organization Details LastModified Time None Recorded Advance Directives Directive None Recorded Payers Insurance Date Sequence Insurance Name Policy Number Policy Peters Covered Member ID Peters Member ID Guarantor Name 10/01/2022 1 [facility] (MEDICARE REPLACEMENT/ ADVANTAGE - HMO) [id number] Jazmín Barone Tobin [id number] Jazmín Barone Tobin 09/03/2022 2 [place] Kwadwo Tobin [id number] Jazmín Ramos 10/15/2022 1 [place] Jazmín Barone Tobin [id number] Kwadwo Tobin 10/14/2022 2 [employer] (MEDICARE SUPPLEMENT) Jazmín Barone Tobin [id number] Jazmín Barone Tobin 08/26/2022 1 [place] Jazmín Barone Tobin [id number] Jazmín Barone Tobin 08/26/2022 1 [facility] HEALTHCARE OPTION - PLAN A (MEDICARE SUPPLEMENT) Jazmín Ramos [id number] Jazmín Ramos Notes Date Note Type Note Provider Name and Address Organization Details Recorded Time 09/03/2022 text/html ShoulderReported bypatient.Hand Dominance:left Location:anterior; lateral Quality:aching; throbbing; frequent Severity:moderate Duration:continuous since onset Timing:cannot identify; chronic Context:cannot identify Alleviating Factors:ice; rest; elevation; NSAIDs Aggravating Factors:carrying; throwing Associated Symptoms:no numbness; no tingling; no swelling; no redness; no warmth; no ecchymosis; no catching/locking; no buckling; no grinding; no instability; no radiation down arm; no drainage; no fever; no chills; no weight loss; no change in bowel/bladder habits;weakness;poppin g/clicking Patient presents shoulder pain left. Nery Carrera MD [address] [place] [address], [place] [address], [place], [address], [place] [facility] 09/03/2022 11:04:16 10/01/2022 text/html Patient returns shoulder pain left. Got some relief from the injection and the steroids but continues to be symptomatic he has pain with resisted abduction external rotation and pain with overhead motion. Nery Carrera MD [address] [place] [address], [place], [address], [place] [facility] 10/01/2022 11:00:18
--- OUTSIDE RECORDS SUMMARY | 2024-12-27 10:50 | XMS_ITS | Data Portability ---
Author Organization ISIDORO MARSHALLHal Lora Address [address] [place] [address] Assessment No assessment recorded. Plan of Treatment Reminders Order Date Submit Date Provider Last Modified By Organization Details Last Modified Time Details Appointments NEW PATIENT 30 2024 02:00P Eliel Addison MD Not available Not available Not available Lab CMP, serum or plasma 2024 025 MATI BECKHAM, Sam [address], [address], [place], [address], 09/24/2024 09:21:42 lipid panel, serum 2024 025 MATI BECKHAM, Sam [address], [address], [place], [address], 09/24/2024 09:21:40 CBC 2024 025 MATI BECKHAM, Sam [address], [address], [place], [address], 09/24/2024 09:21:45 drug screen, 14 drugs (detectim ed), urine 2024 025 MATI BECKHAM, Sam [address], [address], [place], [address], 10/01/2024 13:24:31 TSH, ultra-sen sitive, serum 2024 025 MATI BECKHAM, Sam [address], [address], [place], [address], 09/24/2024 09:21:43 PSA, total, serum or plasma 2024 025 MATI BECKHAM, Sam [address], [address], [place], [address], 09/24/2024 09:21:44 HbA1c (hemoglob in A1c), blood 2023 024 MATI ARENASRP, Sam [address], [address], [place], [address], 01/20/2024 13:10:24 vitamin B12 + folate, serum or blood 2023 024 MATI BECKHAM, Sam Yad[address], [address], [place], [address], 01/20/2024 13:10:23 CMP, serum or plasma 2023 024 MATI BECKHAM, Sam [address], [address], [place], [address], 01/20/2024 13:10:23 lipid panel, serum 2023 024 MATI ARENASZAINA, Sam Y[address], [address], [place], [address], 01/20/2024 13:10:22 CBC 2023 024 MATI BECKHAM, Sam [address], [address], [place], [address], 01/20/2024 13:10:25 TSH + free T4, serum 2023 024 MATI ARENASZAINA, Sam [address], [address], [place], [address], 01/20/2024 13:10:21 HbA1c (hemoglob in A1c), blood 2022 023 MATI DEEPA, Sam jake [address], [address], [place], [address], 06/05/2023 06:20:19 PSA, total, serum or plasma 2022 023 MATI ARENASZAINA, Sam jake [address], [address], [place], [address], 06/05/2023 06:20:19 CMP, serum or plasma 2022 023 MATI ARENASZAINA, Sam [facility], [address], [place], [address], 06/04/2023 19:08:51 lipid panel, serum 2022 023 MATI DEEPA, Sam [facility], [address], [place], [address], 06/04/2023 19:08:51 CBC 2022 023 MATI BECKHAM, Sam [facility] [address], [address], [place], [address], 06/04/2023 19:08:52 TSH + free T4, serum 2022 023 MATI DEEPA, Sam [facility], [address], [place], [address], 06/05/2023 06:20:18 Referral None recorded. Procedures None recorded. Surgeries None recorded. Imaging None recorded. Medication Orders hydrocodo ne 10 mg-acetam inophen 325 mg tablet 2024 025 [id number], [address] [place] [address], [id number], 09/23/2024 16:59:23 hydrocodo ne 10 mg-acetam inophen 325 mg tablet 2023 024 [facility] #[id number], [address], [place], [id number], 03/23/2024 17:19:49 hydrocodo ne 10 mg-acetam inophen 325 mg tablet 2023 024 [facility] #[id number], [address], [place], [id number], 01/19/2024 12:58:31 hydrocodo ne 10 mg-acetam inophen 325 mg tablet 2023 024 [facility] #[id number], [address], [place], [id number], 09/22/2023 12:53:56 simvastat in 40 mg tablet 2022 023 [facility] #[id number], [address], [place], [id number], 06/04/2023 11:50:13 Patient TargetsNo targets recorded. Patient Instructions Encounter Date Encounter Id Patient Instructions Last Modified By Organization Details Last Modified Time 06/04/2023 [id number] Quitting Tobacco : Care Instructions [email or web address] Not available 06/04/2023 11:50:00 chronic obstructive pulmonary disease (COPD): care instructions Not available 06/04/2023 11:50:00 learning about copd and how to prevent lung infections Not available 06/04/2023 11:49:59 pernicious anemia: care instructions [email or web address] Not available 06/04/2023 11:50:00 learning about high blood pressure [email or web address] Not available 06/04/2023 11:50:00 hypothyroidism: care instructions [email or web address] Not available 06/04/2023 11:49:59 benign prostatic hyperplasia: care instructions [email or web address] Not available 06/04/2023 11:50:00 heart failure: care instructions Not available 06/04/2023 11:49:59 learning about heart failure [email or web address] Not available 06/04/2023 11:49:59 09/22/2023 [id number] A healthy lifestyle: care instructions [email or web address] Not available 09/22/2023 12:03:32 learning about high blood pressure Not available 09/22/2023 12:03:32 hypothyroidism: care instructions [email or web address] Not available 09/22/2023 12:03:32 high cholesterol : care instructions [email or web address] Not available 09/22/2023 12:03:32 01/19/2024 [id number] A healthy lifestyle: care instructions [email or web address] Not available 01/19/2024 12:35:58 pernicious anemia: care instructions Not available 01/19/2024 12:35:58 learning about high blood pressure [email or web address] Not available 01/19/2024 12:35:58 hypothyroidism: care instructions [email or web address] Not available 01/19/2024 12:35:58 heart failure: care instructions [email or web address] Not available 01/19/2024 12:35:59 learning about heart failure [email or web address] Not available 01/19/2024 12:35:58 03/23/2024 [id number] chronic obstructive pulmonary disease (COPD): care instructions [email or web address] Not available 03/23/2024 17:16:22 learning about copd and how to prevent lung infections Not available 03/23/2024 17:16:22 high cholesterol : care instructions [email or web address] Not available 03/23/2024 17:16:22 learning about high blood pressure [email or web address] Not available 03/23/2024 17:16:22 hypothyroidism: care instructions [email or web address] Not available 03/23/2024 17:16:22 heart failure: care instructions Not available 03/23/2024 17:16:22 learning about heart failure Not available 03/23/2024 17:16:22 09/23/2024 [id number] When You Want to Lose Weight: Care Instructions [email or web address] Not available 09/23/2024 17:04:51 Quitting Tobacco : Care Instructions [email or web address] Not available 09/23/2024 17:04:51 learning about high blood pressure [email or web address] Not available 09/23/2024 17:04:51 hypothyroidism: care instructions [email or web address] Not available 09/23/2024 17:04:51 benign prostatic hyperplasia: care instructions Not available 09/23/2024 17:04:51 Reason for Referral None Reported. Results Created Date Observation Date Name Description Value Unit Range Abnormal Flag Note LastModifiedBy Organization Detail LastModifiedTime 06/04/20 23 06/04/2023 LIPID PANEL cholesterol, total 145 mg/dL 100-19 9 Not Available [facility] Department [address] [place], [address], 06/04/2023 19:08:51 06/04/2006/04/2023 LIPID PANEL triglyceride s 76 mg/dL 0-149 Not Available [facility] Department [address] [place], [address], 06/04/2023 19:08:51 06/04/20 23 06/04/2023 LIPID PANEL HDL cholesterol 93 mg/dL 40-999 Not Available [facility] Department [address] [place], [address], 06/04/2023 19:08:51 06/04/20 23 06/04/2023 LIPID PANEL VLDL cholesterol jori 15 mg/dL 5-40 Not Available [facility] Department [address] [place], [address], 06/04/2023 19:08:51 06/04/20 23 06/04/2023 LIPID PANEL LDL chol calc ([facility]) 47 mg/dL 0-[address] [facility] Department [address] [place], [address], 06/04/2023 19:08:51 06/04/20 23 06/04/2023 COMP. METAB OLIC PANEL (14) glucose 81 mg/dL 70-99 Not Available [facility] Department [address] [place], [address], 06/04/2023 19:08:51 06/04/20 23 06/04/2023 COMP. METAB OLIC PANEL (14) BUN 22 mg/dL 8-27 Not Available [facility] Department [address] [place], [address], 06/04/2023 19:08:51 06/04/20 23 06/04/2023 COMP. METAB OLIC PANEL (14) creatinine 1.60 mg/dL 0.76-1 .27 above high normal Not Available [facility] Department [address] [place], [address], 06/04/2023 19:08:51 06/04/20 23 06/04/2023 COMP. METAB OLIC PANEL (14) eGFR 45 >=60 below low normal Units for eGFR value s are mL/mi n/1.7 3 The eGFR Calcu latio n has not been valid ated for patie nts under the age of 18. If test resul ts are displ ayed for a patie nt under the age of 18, disre silverio that value . Not Available [facility] Department [address] [place] [address], [address], 06/04/2023 19:08:51 06/04/20 23 06/04/2023 COMP. METAB OLIC PANEL (14) BUN/creatini ne ratio 14 10-24 Not Available [facility] Department [address] [place] [address], [address], 06/04/2023 19:08:51 06/04/20 23 06/04/2023 COMP. METAB OLIC PANEL (14) sodium 137 mmol/ L 134-14 4 Not Available [facility] Department [address] [place] [address], [address], 06/04/2023 19:08:51 06/04/20 23 06/04/2023 COMP. METAB OLIC PANEL (14) potassium 4.5 mmol/ L 3.5-5. 2 Not Available [facility] Department [address] [place] [address], [address], 06/04/2023 19:08:51 06/04/20 23 06/04/2023 COMP. METAB OLIC PANEL (14) chloride 101 mmol/ L 96-106 Not Available [facility] Department [address] [place], [address], 06/04/2023 19:08:51 06/04/20 23 06/04/2023 COMP. METAB OLIC PANEL (14) carbon dioxide, total 25 mmol/ L 20-29 Not Available [facility] Department [address] [place] [address], [address], 06/04/2023 19:08:51 06/04/20 23 06/04/2023 COMP. METAB OLIC PANEL (14) calcium 9.3 mg/dL 8.6-10 .2 Not Available [facility] Department [address] [place] [address], [address], 06/04/2023 19:08:51 06/04/20 23 06/04/2023 COMP. METAB OLIC PANEL (14) protein, total 7.0 g/dL 6.0-8. 5 Not Available [facility] Department [address] [place], [address], 06/04/2023 19:08:51 06/04/20 23 06/04/2023 COMP. METAB OLIC PANEL (14) albumin 4.3 g/dL 3.8-4. 8 Not Available [facility] Department [address] [place] [address], [address], 06/04/2023 19:08:51 06/04/20 23 06/04/2023 COMP. METAB OLIC PANEL (14) globulin, total 2.7 g/dL 1.5-4. 5 Not Available [facility] Department [address] [place] [address], [address], 06/04/2023 19:08:51 06/04/20 23 06/04/2023 COMP. METAB OLIC PANEL (14) A/G ratio 2.0 1.2-2. 2 Not Available [facility] Department [address] [place], [address], 06/04/2023 19:08:51 06/04/20 23 06/04/2023 COMP. METAB OLIC PANEL (14) bilirubin, total 0.2 mg/dL 0.0-1. 2 Not Available [facility] Department [address] [place], [address], 06/04/2023 19:08:51 06/04/20 23 06/04/2023 COMP. METAB OLIC PANEL (14) alkaline phosphatase 80 IU/L 44-121 Not Available [facility] Department [address] [place] [address], [address], 06/04/2023 19:08:51 06/04/20 23 06/04/2023 COMP. METAB OLIC PANEL (14) AST (SGOT) 22 IU/L 0-40 Not Available [facility] Department [address] [place], [address], 06/04/2023 19:08:51 06/04/20 23 06/04/2023 COMP. METAB OLIC PANEL (14) ALT (SGPT) 23 IU/L 0-44 Not Available [facility] Department [address] [place] [address], [address], 06/04/2023 19:08:51 06/04/20 23 06/04/2023 CBC, PLATE LET, NO DIFFE RENTI AL WBC 9.0 x10e3 /uL 3.4-10 .8 Not Available [facility] Department [address] [place] [address], [address], 06/04/2023 19:08:52 06/04/20 23 06/04/2023 CBC, PLATE LET, NO DIFFE RENTI AL RBC 4.29 x10e6 /uL 4.14-5 .80 Not Available [facility] Department [address] [place] [address], [address], 06/04/2023 19:08:52 06/04/20 23 06/04/2023 CBC, PLATE LET, NO DIFFE RENTI AL hemoglobin 11.1 g/dL 13.0-1 7.7 below low normal Not Available [facility] Department [address] [place], [address], 06/04/2023 19:08:52 06/04/20 23 06/04/2023 CBC, PLATE LET, NO DIFFE RENTI AL hematocrit 36.6 % 37.5-5 1.0 below low normal Not Available [facility] Department [address] [place], [address], 06/04/2023 19:08:52 06/04/20 23 06/04/2023 CBC, PLATE LET, NO DIFFE RENTI AL MCV 85 fL 79-97 Not Available [facility] Department [address] [place], [address], 06/04/2023 19:08:52 06/04/20 23 06/04/2023 CBC, PLATE LET, NO DIFFE RENTI AL MCH 25.9 pg 26.6-3 3.0 below low normal Not Available [facility] Department [address] [place], [address], 06/04/2023 19:08:52 06/04/20 23 06/04/2023 CBC, PLATE LET, NO DIFFE RENTI AL MCHC 30.3 g/dL 31.5-3 5.7 below low normal Not Available [facility] Department [address] [place], [address], 06/04/2023 19:08:52 06/04/20 23 06/04/2023 CBC, PLATE LET, NO DIFFE RENTI AL RDW 16.1 % 11.5-1 4.5 above high normal Not Available [facility] Department [address] [place], [address], 06/04/2023 19:08:52 06/04/20 06/04/2023 CBC, PLATE LET, NO DIFFE RENTI AL platelets 208 x10e3 /uL 150-45 0 Mean Plate let Volum e 10.7 fL 8.9-1 2.7 N Not Available [facility] Department [address] [place], [address], 06/04/2023 19:08:52 06/04/20 23 06/04/2023 CBC, PLATE LET, NO DIFFE FLORINDA AL NRBC 0 % 0-0 Not Available [facility] Department [address] [place], [address], 06/04/2023 19:08:52 06/04/20 23 06/05/2023 TSH+F REE T4 TSH 4.020 uIU/m L 0.450- 4.500 Not Available [facility] ([facility]) [address] [facility], [place], [address], 06/05/2023 06:20:18 06/04/20 23 06/05/2023 TSH+F REE T4 T4,free(dire ct) 1.48 NG/dL 0.82-1 .77 Not Available [facility] ([facility]) [address] [facility], [place], [address], 06/05/2023 06:20:18 06/04/20 23 06/05/2023 HEMOG LOBIN A1C hemoglobin A1C 5.9 % 4.8-5. 6 above high normal Predi abete s: 5.7 - 6.4 Diabe kavita: >6.4 Glyce angle contr ol for adult s with diabe kavita: <7.0 Not Available [facility] ([facility]) [address] [place], [address], 06/05/2023 06:20:19 06/04/20 23 06/05/2023 PROST ATE-S PECIF IC AG prostate specific Ag 2.8 NG/mL 0.0-4. 0 Deisi ECLIA metho dolog y. Accor ding to the Ameri can [employer]o g[employer] iatio n, Serum PSA shoul d decre ase and remai n at undet ectab le level s after radic al prost atect chica. The AUA defin es bioch emica l recur rence as an initi al PSA value 0.2 ng/mL or great er follo wed by a subse quent confi rmato ry PSA value 0.2 ng/mL or great er. Value s obtai luna with diffe rent assay metho ds or kits canno t be used inter lewis eably . Resul ts canno t be inter prete d as absol qawalangin evide nce of the prese nce or absen ce of malig nant disea se. Not Available [facility] ([facility]) [address] [facility], [place], [address], 06/05/2023 06:20:19 09/01/19 24 09/08/2023 COMPL IANCE DRUG JOSIAS SIS, UR summary report (summary) FINAL ===== ===== ===== ===== ===== ===== ===== ===== ===== ===== ===== ===== ===== === TOXAS SURE COMP DRUG JOSIAS SIS,U R ===== ===== ===== ===== ===== ===== ===== ===== ===== ===== ===== ===== ===== === Test Resul t Flag Units Drug Prese nt Gabap entin PRESE NT Aceta minop hen PRESE NT ===== ===== ===== ===== ===== ===== ===== ===== ===== ===== ===== ===== ===== === Test Resul t Flag Units Ref Range Creat inine 42 mg/dL >=20 ===== ===== ===== ===== ===== ===== ===== ===== ===== ===== ===== ===== ===== === Decla red Medic ation s: Medic ation list was not provi ded. ===== ===== ===== ===== ===== ===== ===== ===== ===== ===== ===== ===== ===== === For clini jori consu ltati on, pleas e call . ===== ===== ===== ===== ===== ===== ===== ===== ===== ===== ===== ===== ===== === Not Available [facility] ([facility]) [address] [place], [address], 09/08/2023 17:09:38 09/01/19 24 09/08/2023 COMPL IANCE DRUG JOSIAS SIS, UR pdf . Not Available [facility] ([facility]) [address] [place], [address], 09/08/2023 17:09:38 01/19/20 24 01/20/2024 TSH+F REE T4 TSH 2.160 uIU/m L 0.450- 4.500 Not Available [facility] ([facility]) [address] [place], [address], 01/20/2024 13:10:21 01/19/2001/20/2024 TSH+F REE T4 T4,free(dire ct) 1.40 NG/dL 0.82-1 .77 Not Available [facility] ([facility]) [address] [place], [address], 01/20/2024 13:10:21 01/19/20 24 01/20/2024 LIPID PANEL cholesterol, total 124 mg/dL 100-19 9 Not Available [facility] ([facility]) [address] [place], [address], 01/20/2024 13:10:22 01/19/20 24 01/20/2024 LIPID PANEL triglyceride s 106 mg/dL 0-149 Not Available [facility]) [address] [place], [address], 01/20/2024 13:10:22 01/19/20 24 01/20/2024 LIPID PANEL HDL cholesterol 69 mg/dL >39 Not Available [facility]) [address] [place], [address], 01/20/2024 13:10:22 01/19/20 24 01/20/2024 LIPID PANEL VLDL cholesterol jori 19 mg/dL 5-40 Not Available [facility]) [address] [place], [address], 01/20/2024 13:10:22 01/19/20 24 01/20/2024 LIPID PANEL LDL chol calc ([facility]) 36 mg/dL 0-99 Not Available [facility]) [address] [place], [address], 01/20/2024 13:10:22 01/19/20 24 01/20/2024 COMP. METAB OLIC PANEL (14) glucose - mg/dL Test not perfo rmed. Serum was in conta ct with cells when recei samantha which will make the resul t inacc urate . Not Available [facility] ([facility]) [address] [place], [address], 01/20/2024 13:10:22 01/19/20 24 01/20/2024 COMP. METAB OLIC PANEL (14) BUN 14 mg/dL 8-27 Not Available [facility] ([facility]) [address] [facility], [place], [address], 01/20/2024 13:10:22 01/19/20 24 01/20/2024 COMP. METAB OLIC PANEL (14) creatinine 1.41 mg/dL 0.76-1 .27 above high normal Not Available [facility] ([facility]) [address] [facility], [place], [address], 01/20/2024 13:10:22 01/19/20 24 01/20/2024 COMP. METAB OLIC PANEL (14) eGFR 53 mL/mi n/1.7 3 >59 below low normal Not Available [facility] ([facility]) [address] [facility], [place], [address], 01/20/2024 13:10:22 01/19/20 24 01/20/2024 COMP. METAB OLIC PANEL (14) BUN/creatini ne ratio 10 10-24 Not Available [facility]) [address] [facility], [place], [address], 01/20/2024 13:10:22 01/19/20 24 01/20/2024 COMP. METAB OLIC PANEL (14) sodium 137 mmol/ L 134-14 4 Not Available [facility] ([facility]) [address] [facility], [place], [address], 01/20/2024 13:10:22 01/19/20 24 01/20/2024 COMP. METAB OLIC PANEL (14) potassium - mmol/ L Test not perfo rmed. Serum was in conta ct with cells when recei samantha which will make the resul t inacc urate . Not Available [facility] ([facility]) [address] [facility], [place], [address], 01/20/2024 13:10:22 01/19/20 24 01/20/2024 COMP. METAB OLIC PANEL (14) chloride 101 mmol/ L 96-106 Not Available [facility] ([facility]) [address] [facility], [place], [address], 01/20/2024 13:10:22 01/19/20 24 01/20/2024 COMP. METAB OLIC PANEL (14) carbon dioxide, total 20 mmol/ L 20- Not Available [facility] ([facility]) [address], [place], [address], 01/20/2024 13:10:22 01/19/20 24 01/20/2024 COMP. METAB OLIC PANEL (14) calcium 9.3 mg/dL 8.6-10 .2 Not Available [facility] ([facility]) [address] [place], [address], 01/20/2024 13:10:22 01/19/20 24 01/20/2024 COMP. METAB OLIC PANEL (14) protein, total 6.7 g/dL 6.0-8. 5 Not Available [facility] ([facility]) [address] [facility], [place], [address], 01/20/2024 13:10:22 01/19/20 24 01/20/2024 COMP. METAB OLIC PANEL (14) albumin 4.0 g/dL 3.8-4. 8 Not Available [facility] ([facility]) [address] [facility], [place], [address], 01/20/2024 13:10:22 01/19/20 24 01/20/2024 COMP. METAB OLIC PANEL (14) globulin, total 2.7 g/dL 1.5-4. 5 Not Available [facility] ([facility]) [address] [place] [place], [address], 01/20/2024 13:10:22 01/19/20 24 01/20/2024 COMP. METAB OLIC PANEL (14) bilirubin, total 0.3 mg/dL 0.0-1. 2 Not Available [facility] ([facility]) [address] [place] [place], [address], 01/20/2024 13:10:22 01/19/20 24 01/20/2024 COMP. METAB OLIC PANEL (14) alkaline phosphatase 87 IU/L 44-121 Not Available [facility]) [address] [facility], [place], [address], 01/20/2024 13:10:22 01/19/20 24 01/20/2024 COMP. METAB OLIC PANEL (14) AST (SGOT) 28 IU/L 0-40 Not Available [facility] ([facility]) [address] [place] [place], [address], 01/20/2024 13:10:22 01/19/20 24 01/20/2024 COMP. METAB OLIC PANEL (14) ALT (SGPT) 16 IU/L 0-44 Not Available [facility] ([facility]) [address] [facility], [place], [address], 01/20/2024 13:10:22 01/19/20 24 01/20/2024 VITAM IN B12 AND FOLAT E vitamin B12 733 pg/mL 232-12 45 Not Available [facility] ([facility]) [address] [facility], [place], [address], 01/20/2024 13:10:23 01/19/20 24 01/20/2024 VITAM IN B12 AND FOLAT E folate (folic acid), serum 18.3 NG/mL >3.0 A serum folat e rossana ntrat ion of less than 3.1 ng/mL is consi dered to repre sent clini jori defic iency . Not Available [facility] ([facility]) [address] [facility], [place], [address], 01/20/2024 13:10:23 01/19/20 24 01/20/2024 HEMOG LOBIN A1C hemoglobin A1C 5.7 % 4.8-5. 6 above high normal Predi abete s: 5.7 - 6.4 Diabe kavita: >6.4 Glyce angle contr ol for adult s with diabe kavita: <7.0 Not Available [facility] ([facility]) [address] [facility], [place], [address], 01/20/2024 13:10:24 01/19/20 24 01/20/2024 CBC, PLATE LET, NO DIFFE RENTI AL WBC 7.2 x10e3 /uL 3.4-10 .8 Not Available [facility] ([facility]) [address] [facility], [place], [address], 01/20/2024 13:10:25 01/19/2001/20/2024 CBC, PLATE LET, NO DIFFE RENTI AL RBC 4.37 x10e6 /uL 4.14-5 .80 Not Available [facility] ([facility]) [address] [facility], [place], [address], 01/20/2024 13:10:25 01/19/2001/20/2024 CBC, PLATE LET, NO DIFFE RENTI AL hemoglobin 12.8 g/dL 13.0-1 7.7 below low normal Not Available [facility] ([facility]) [address] [facility], [place], [address], 01/20/2024 13:10:25 01/19/2001/20/2024 CBC, PLATE LET, NO DIFFE RENTI AL hematocrit 40.8 % 37.5-5 1.0 Not Available [facility] ([facility]) [address] [place], [address], 01/20/2024 13:10:25 01/19/2001/20/2024 CBC, PLATE LET, NO DIFFE RENTI AL MCV 93 fL 79-97 Not Available [facility] ([facility]) [address] [facility], [place], [address], 01/20/2024 13:10:25 01/19/2001/20/2024 CBC, PLATE LET, NO DIFFE RENTI AL MCH 29.3 pg 26.6-3 3.0 Not Available [facility] ([facility]) [address] [place], [address], 01/20/2024 13:10:25 01/19/20 24 01/20/2024 CBC, PLATE LET, NO DIFFE RENTI AL MCHC 31.4 g/dL 31.5-3 5.7 below low normal Not Available [facility] ([facility]) [address] [place], [address], 01/20/2024 13:10:25 01/19/20 24 01/20/2024 CBC, PLATE LET, NO DIFFE RENTI AL RDW 13.2 % 11.6-1 5.4 Not Available [facility] ([facility]) [address] [place], [address], 01/20/2024 13:10:25 01/19/20 24 01/20/2024 CBC, PLATE LET, NO DIFFE RENTI AL platelets 185 x10e3 /uL 150-45 0 Not Available [facility] ([facility]) [address] [place], [address], 01/20/2024 13:10:25 09/24/19 25 09/24/2024 LIPID PANEL cholesterol, total 144 mg/dL 100-19 9 Not Available [facility] ([facility]) [address] [place], [address], 09/24/2024 09:21:40 09/24/19 25 09/24/2024 LIPID PANEL triglyceride s 94 mg/dL 0-149 Not Available [facility] ([facility]) [address] [place], [address], 09/24/2024 09:21:40 09/24/19 25 09/24/2024 LIPID PANEL HDL cholesterol 84 mg/dL >39 Not Available [facility] ([facility]) [address] [place], [address], 09/24/2024 09:21:40 09/24/19 25 09/24/2024 LIPID PANEL VLDL cholesterol jori 17 mg/dL 5-40 Not Available [facility] ([facility]) [address] [place], [address], 09/24/2024 09:21:40 09/24/19 25 09/24/2024 LIPID PANEL LDL chol calc ([facility]) 43 mg/dL 0-99 Not Available [facility] ([facility]) [address] [place], [address], 09/24/2024 09:21:40 09/24/19 25 09/24/2024 COMP. METAB OLIC PANEL (14) glucose 83 mg/dL 70-99 Not Available [facility] ([facility]) [address] [place], [address], 09/24/2024 09:21:41 09/24/19 25 09/24/2024 COMP. METAB OLIC PANEL (14) BUN 18 mg/dL 8-27 Not Available [facility] ([facility]) [address] [place], [address], 09/24/2024 09:21:41 09/24/19 25 09/24/2024 COMP. METAB OLIC PANEL (14) creatinine 1.18 mg/dL 0.76-1 .27 Not Available [facility] ([facility]) [address] [place], [address], 09/24/2024 09:21:41 09/24/19 25 09/24/2024 COMP. METAB OLIC PANEL (14) eGFR 65 mL/mi n/1.7 3 >59 Not Available [facility] ([facility]) [address] [place], [address], 09/24/2024 09:21:41 09/24/19 25 09/24/2024 COMP. METAB OLIC PANEL (14) BUN/creatini ne ratio 15 10-24 Not Available [facility] ([facility]) [address] [facility], [place], [address], 09/24/2024 09:21:41 09/24/19 25 09/24/2024 COMP. METAB OLIC PANEL (14) sodium 137 mmol/ L 134-14 4 Not Available [facility] ([facility]) [address] [facility], [place], [address], 09/24/2024 09:21:41 09/24/19 25 09/24/2024 COMP. METAB OLIC PANEL (14) potassium 4.8 mmol/ L 3.5-5. 2 Not Available [facility] ([facility]) [address] [facility], [place], [address], 09/24/2024 09:21:41 09/24/19 25 09/24/2024 COMP. METAB OLIC PANEL (14) chloride 101 mmol/ L 96-106 Not Available [facility] ([facility]) [address] [facility], [place], [address], 09/24/2024 09:21:41 09/24/19 25 09/24/2024 COMP. METAB OLIC PANEL (14) carbon dioxide, total 21 mmol/ L 20-29 Not Available [facility] ([facility]) [address] [place] [place], [address], 09/24/2024 09:21:41 09/24/19 25 09/24/2024 COMP. METAB OLIC PANEL (14) calcium 10.1 mg/dL 8.6-10 .2 Not Available [facility] ([facility]) [address] [place] [place], [address], 09/24/2024 09:21:41 09/24/19 25 09/24/2024 COMP. METAB OLIC PANEL (14) protein, total 7.4 g/dL 6.0-8. 5 Not Available [facility] ([facility]) [address] [facility], [place], [address], 09/24/2024 09:21:41 09/24/19 25 09/24/2024 COMP. METAB OLIC PANEL (14) albumin 4.5 g/dL 3.8-4. 8 Not Available [facility] ([facility]) [address] [facility], [place], [address], 09/24/2024 09:21:41 09/24/19 25 09/24/2024 COMP. METAB OLIC PANEL (14) globulin, total 2.9 g/dL 1.5-4. 5 Not Available [facility] ([facility]) [address] [facility], [place], [address], 09/24/2024 09:21:41 09/24/19 25 09/24/2024 COMP. METAB OLIC PANEL (14) bilirubin, total 0.5 mg/dL 0.0-1. 2 Not Available [facility] ([facility]) [address] [facility], [place], [address], 09/24/2024 09:21:41 09/24/19 25 09/24/2024 COMP. METAB OLIC PANEL (14) alkaline phosphatase 105 IU/L 44-121 Not Available [facility] ([facility]) [address] [facility], [place], [address], 09/24/2024 09:21:41 09/24/19 25 09/24/2024 COMP. METAB OLIC PANEL (14) AST (SGOT) 29 IU/L 0-40 Not Available [facility] ([facility]) [address] [facility], [place], [address], 09/24/2024 09:21:41 09/24/19 25 09/24/2024 COMP. METAB OLIC PANEL (14) ALT (SGPT) 19 IU/L 0-44 Not Available [facility] ([facility]) [address] [facility], [place], [address], 09/24/2024 09:21:41 09/24/19 25 09/24/2024 TSH TSH 1.190 uIU/m L 0.450- 4.500 Not Available [facility] ([facility]) [address] [facility], [place], [address], 09/24/2024 09:21:43 09/24/1909/24/2024 PROST ATE-S PECIF IC AG prostate specific Ag 5.5 NG/mL 0.0-4. 0 above high normal Deisi ECLIA metho dolog y. Accor ding to the [employer]i [employer] i[employer] n, Serum PSA shoul d decre ase and remai n at undet ectab le level s after radic al prost atect chica. The AUA defin es bioch emica l recur rence as an initi al PSA value 0.2 ng/mL or great er follo wed by a subse quent confi rmato ry PSA value 0.2 ng/mL or great er. Value s obtai luna with diffe rent assay metho ds or kits canno t be used inter lewis eably . Resul ts canno t be inter prete d as absol qawalangin evide nce of the prese nce or absen ce of arnie patel se. Not Available [facility] ([facility]) [address] [facility], [place], [address], 09/24/2024 09:21:44 09/24/1909/24/2024 CBC, PLATE LET, NO DIFFE RENTI AL WBC 9.4 x10e3 /uL 3.4-10 .8 Not Available [facility] ([facility]) [address] [place], [address], 09/24/2024 09:21:45 09/24/1909/24/2024 CBC, PLATE LET, NO DIFFE RENTI AL RBC 4.17 x10e6 /uL 4.14-5 .80 Not Available [facility] ([facility]) [address] [place], [address], 09/24/2024 09:21:45 09/24/1909/24/2024 CBC, PLATE LET, NO DIFFE RENTI AL hemoglobin 12.1 g/dL 13.0-1 7.7 below low normal Not Available [facility] ([facility]) [address] [facility], [place], [address], 09/24/2024 09:21:45 09/24/1909/24/2024 CBC, PLATE LET, NO DIFFE RENTI AL hematocrit 37.8 % 37.5-5 1.0 Not Available [facility] ([facility]) [address] [place], [address], 09/24/2024 09:21:45 09/24/1909/24/2024 CBC, PLATE LET, NO DIFFE RENTI AL MCV 91 fL 79-97 Not Available [facility] ([facility]) [address] [place], [address], 09/24/2024 09:21:45 09/24/1909/24/2024 CBC, PLATE LET, NO DIFFE RENTI AL MCH 29.0 pg 26.6-3 3.0 Not Available [facility] ([facility]) [address] [place], [address], 09/24/2024 09:21:45 09/24/1909/24/2024 CBC, PLATE LET, NO DIFFE RENTI AL MCHC 32.0 g/dL 31.5-3 5.7 Not Available [facility] ([facility]) [address] [place], [address], 09/24/2024 09:21:45 09/24/1909/24/2024 CBC, PLATE LET, NO DIFFE RENTI AL RDW 13.0 % 11.6-1 5.4 Not Available [facility] ([facility]) [address] [place], [address], 09/24/2024 09:21:45 09/24/19 25 09/24/2024 CBC, PLATE LET, NO DIFFE RENTI AL platelets 203 x10e3 /uL 150-45 0 Not Available [facility] ([facility]) [address] [facility], [place], [address], 09/24/2024 09:21:45 09/24/19 25 10/01/2024 COMPL IANCE DRUG JOSIAS SIS, UR summary report (summary) FINAL ===== ===== ===== ===== ===== ===== ===== ===== ===== ===== ===== ===== ===== === TOXAS SURE COMP DRUG JOSIAS SIS,U R ===== ===== ===== ===== ===== ===== ===== ===== ===== ===== ===== ===== ===== === Speci men Alert Note: Urina ry creat inine is low; abili ty to detec t some drugs may be compr omise d. Inter pret resul ts with cauti on. ===== ===== ===== ===== ===== ===== ===== ===== ===== ===== ===== ===== ===== === Test Resul t Flag Units Drug Prese nt [place] codon e 788 ng/mg creat [place] morph one 681 ng/mg creat Dihyd rocod eine 438 ng/mg creat Norhy droco done 788 ng/mg creat Sourc es of hydro codon e inclu de sched uled presc ripti on medic ation s. [place] morph one, dihyd rocod eine and norhy droco done are expec mayra metab olite s of hydro codon e. [place] morph one and dihyd rocod eine are also avail able as sched uled presc ripti on medic ation s. Gabap entin PRESE NT Aceta minop hen PRESE NT ===== ===== ===== ===== ===== ===== ===== ===== ===== ===== ===== ===== ===== === Test Resul t Flag Units Ref Range Creat inine 16 L mg/dL >=20 ===== ===== ===== ===== ===== ===== ===== ===== ===== ===== ===== ===== ===== === Decla red Medic ation s: Medic ation list was not provi ded. ===== ===== ===== ===== ===== ===== ===== ===== ===== ===== ===== ===== ===== === For clini jori consu ltati on, pleas e call [phone]. ===== ===== ===== ===== ===== ===== ===== ===== ===== ===== ===== ===== ===== === Not Available [facility] ([facility]) [address] [facility], [place], [address], 10/01/2024 13:24:30 09/24/19 25 10/01/2024 COMPL IANCE DRUG JOSIAS SIS, UR pdf . Not Available [facility] ([facility]) [address] [facility], [place], [address], 10/01/2024 13:24:30 10/23/19 25 10/22/2024 Hemog lobin A1c/H emogl obin. total in Blood hemoglobin A1C/hemoglob in.total in blood 6 % low: 4%high : 6% normal Not Available Not Available 10/27/2024 23:03:56 10/23/19 25 10/22/2024 Thyro tropi n [Unit s/vol ume] in Serum or Plasm a by Detec tion limit <= 0.005 mIU/L thyrotropin [units/volum e] in serum or plasma by detection limit <= 0.005 mIU/L 1.43 uIU/m L low: 0.465u IU/mLh igh: 4.68uI U/mL normal Not Available Not Available 10/27/2024 23:03:56 10/23/19 25 10/22/2024 25-hy droxy vitam in D3 [Mass /volu me] in Serum or Plasm a 25-hydroxyvi tamin D3 [mass/volume ] in serum or plasma 70.8 NG/mL low: 30NG/m Lhigh: 100NG/ mL normal Not Available Not Available 10/27/2024 23:03:56 10/23/19 25 10/22/[address] [Mass /volu me] in Serum or Plasm a parathyrin.i ntact [mass/volume ] in serum or plasma 55.7 pg/mL low: 24pg/m Lhigh: 78pg/m L normal Not Available Not Available 10/27/2024 23:03:56 10/23/19 25 10/22/2024 Micro album in/Cr eatin ine [Rati o] in Urine creatinine [mass/volume ] in urine 87.3 mg/dL normal Not Available Not Available 0 10/27/2024 23:03:56 10/23/19 25 10/22/2024 Micro album in/Cr eatin ine [Rati o] in Urine microalbumin [mass/volume ] in urine 8.4 mg/L low: 0mg/Lh igh: 16.6mg /L normal Not Available Not Available 10/27/2024 23:03:56 10/23/19 25 10/22/2024 Micro album in/Cr eatin ine [Rati o] in Urine microalbumin /creatinine [ratio] in urine 10 mcg/m g low: 0mcg/m ghigh: 29mcg/ mg normal Not Available Not Available 10/27/2024 23:03:56 10/23/19 25 10/22/2024 Eryth rocyt e sedim entat ion rate [[place]] in Red Blood Cells erythrocyte sedimentatio n rate [velocity] in red blood cells 20 mm/HR low: 0mm/HR high: 20mm/H R normal Not Available Not Available 10/27/2024 23:03:55 10/23/19 25 10/22/2024 Compr ehens [facility] 1999 panel - Serum or Plasm a sodium [moles/volum e] in blood 138 mmol/ L low: 137mmo l/Lhig h: 145mmo l/L normal Not Available Not Available 10/27/2024 23:03:55 10/23/19 25 10/22/2024 Compr ehens [facility] 1999 panel - Serum or Plasm a potassium [moles/volum e] in serum or plasma 4.3 mmol/ L low: 3.5mmo l/Lhig h: 5.1mmo l/L normal Not Available Not Available 10/27/2024 23:03:55 10/23/19 25 10/22/2024 Compr e[facility] 1999 panel - Serum or Plasm a chloride [moles/volum e] in serum or plasma 103 mmol/ L low: 98mmol /Lhigh : 107mmo l/L normal Not Available Not Available 10/27/2024 23:03:55 10/23/19 25 10/22/2024 [facility]pr [facility] 1999 panel - Serum or Plasm a carbon dioxide, total [moles/volum e] in serum or plasma 25 mmol/ L low: 22mmol /Lhigh : 30mmol /L normal Not Available Not Available 10/27/2024 23:03:55 10/23/19 25 10/22/2024 [facility]pr [facility] 1999 panel - Serum or Plasm a anion gap in serum or plasma by calculation 14.3 mmol/ L low: 14mmol /Lhigh : 22mmol /L normal Not Available Not Available 10/27/2024 23:03:55 10/23/19 25 10/22/2024 Compr e[facility] 1999 panel - Serum or Plasm a glucose [mass/volume ] in serum or plasma 112 mg/dL low: 70mg/d Lhigh: 99mg/d L high Not Available Not Available 10/27/2024 23:03:55 10/23/19 25 10/22/2024 [facility] [employer] [facility] 1999 panel - Serum or Plasm a urea nitrogen [mass or moles/volume ] in serum or plasma 12 mg/dL low: 8mg/dL high: 19mg/d L normal Not Available Not Available 10/27/2024 23:03:55 10/23/19 25 10/22/2024 [facility] [employer] [facility] 1999 panel - Serum or Plasm a creatinine [mass/volume ] in serum or plasma 1.13 mg/dL low: 0.66mg /dLhig h: 1.25mg /dL normal Not Available Not Available 10/27/2024 23:03:55 10/23/19 25 10/22/2024 [facility] [employer] 1999 panel - Serum or Plasm a glomerular filtration rate [volume rate/area] in serum, plasma or blood by based on 1.73 sq M >60 normal Not Available Not Available 23:03:55 10/23/19 25 10/22/2024 [facility] [employer] 1999 panel - Serum or Plasm a alkaline phosphatase [enzymatic activity/vol ume] in serum or plasma 89 U/L low: 38U/Lh igh: 126U/L normal Not Available Not Available 10/27/2024 23:03:55 10/23/19 25 10/22/2024 [facility] [employer] 1999 panel - Serum or Plasm a alanine aminotransfe rase [enzymatic activity/vol ume] in serum or plasma 19 U/L low: 0U/Lhi gh: 50U/L normal Not Available Not Available 10/27/2024 23:03:55 10/23/19 25 10/22/2024 [facility] [employer] 1999 panel - Serum or Plasm a aspartate aminotransfe rase [enzymatic activity/vol ume] in serum or plasma 35 U/L low: 15U/Lh igh: 46U/L normal Not Available Not Available 10/27/2024 23:03:55 10/23/19 25 10/22/2024 [facility] 1999 panel - Serum or Plasm a bilirubin.to zenaida [mass/volume ] in serum or plasma 0.5 mg/dL low: 0.2mg/ dLhigh : 1.3mg/ dL normal Not Available Not Available 10/27/2024 23:03:55 10/23/19 25 10/22/2024 [facility] 1999 panel - Serum or Plasm a calcium [mass/volume ] in serum or plasma 9.7 mg/dL low: 8.4mg/ dLhigh : 10.2mg /dL normal Not Available Not Available 10/27/2024 23:03:55 10/23/19 25 10/22/2024 [facility] 1999 panel - Serum or Plasm a protein [mass/volume ] in serum or plasma 7.3 g/dL low: 6.3g/d Lhigh: 8.2g/d L normal Not Available Not Available 10/27/2024 23:03:55 10/23/19 25 10/22/2024 [facility] 1999 panel - Serum or Plasm a albumin [mass/volume ] in serum or plasma 4.4 g/dL low: 3g/dLh igh: 4.4g/d L normal Not Available Not Available 10/27/2024 23:03:55 10/23/19 25 10/22/2024 [place] [address] panel - Serum or Plasm a globulin [mass/volume ] in serum 2.9 g/dL low: 2.6g/d Lhigh: 4.2g/d L normal Not Available Not Available 10/27/2024 23:03:55 10/23/19 25 10/22/2024 [place] [address] panel - Serum or Plasm a albumin/glob ulin [mass ratio] in serum or plasma 1.5 ratio low: 1ratio high: 2ratio normal Not Available Not Available 10/27/2024 23:03:55 10/23/19 25 10/22/2024 Urina lysis compl ete W Refle x Cultu re panel - Urine color of urine by auto Color of urine normal Not Available Not Available 23:03:56 10/23/19 25 10/22/2024 Urina lysis compl ete W Refle x Cultu re panel - Urine appearance of urine Urine specim en normal Not Available Not Available 23:03:56 10/23/19 25 10/22/2024 Urina lysis compl ete W Refle x Cultu re panel - Urine specific gravity of urine by test strip 1.027 1 low: 1.001h igh: 1.03 normal Not Available Not Available 10/27/2024 23:03:56 10/23/19 25 10/22/2024 Urina lysis compl ete W Refle x Cultu re panel - Urine pH of urine by test strip 7 pH_un its low: 5pH unitsh igh: 9pH units normal Not Available Not Available 10/27/2024 23:03:56 10/23/19 25 10/22/2024 Urina lysis compl ete W Refle x Cultu re panel - Urine leukocytes [#/volume] in urine by test strip Leukoc yte estera se measur ement text: negati ve normal Not Available Not Available 10/27/2024 23:03:56 10/23/19 25 10/22/2024 Urina lysis compl ete W Refle x Cultu re panel - Urine nitrite [presence] in urine by test strip Labora tory test findin g text: negati ve normal Not Available Not Available 10/27/2024 23:03:56 10/23/19 25 10/22/2024 Urina lysis compl ete W Refle x Cultu re panel - Urine protein [mass/volume ] in urine by test strip Urine findin g text: negati ve normal Not Available Not Available 10/27/2024 23:03:56 10/23/19 25 10/22/2024 Urina lysis compl ete W Refle x Cultu re panel - Urine glucose [moles/volum e] in urine by test strip Labora tory test findin g text: normal Not Available Not Available 10/27/2024 23:03:56 10/23/19 25 10/22/2024 Urina lysis compl ete W Refle x Cultu re panel - Urine ketones [moles/volum e] in urine by test strip Labora tory test findin g text: negati ve normal Not Available Not Available 10/27/2024 23:03:56 10/23/19 25 10/22/2024 Urina lysis compl ete W Refle x Cultu re panel - Urine urobilinogen [mass/volume ] in urine by test strip Urobil inogen measur ement, urine text: normal normal Not Available Not Available 10/27/2024 23:03:56 10/23/19 25 10/22/2024 Urina lysis compl ete W Refle x Cultu re panel - Urine bilirubin.to zenaiad [mass/volume ] in urine by test strip Urine dipsti ck for biliru bin text: negati ve normal Not Available Not Available 10/27/2024 23:03:56 10/23/19 25 10/22/2024 Urina lysis compl ete W Refle x Cultu re panel - Urine erythrocytes [#/volume] in urine by test strip Urine dipsti ck for blood text: negati ve normal Not Available Not Available 10/27/2024 23:03:56 10/23/19 25 10/22/2024 Urina lysis compl ete W Refle x Cultu re panel - Urine leukocytes [#/area] in urine sediment by automated count Leukoc ytes in urine low: 0/[hpf ]high: 8/[hpf ] normal Not Available Not Available 10/27/2024 23:03:56 10/23/19 25 10/22/2024 Urina lysis compl ete W Refle x Cultu re panel - Urine erythrocytes [#/area] in urine sediment by automated count Blood in urine low: 0/[hpf ]high: 4/[hpf ] normal Not Available Not Available 10/27/2024 23:03:56 10/23/19 25 10/22/2024 Urina lysis compl ete W Refle x Cultu re panel - Urine bacteria [presence] in urine by automated Urine findin g text: none seen normal Not Available Not Available 10/27/2024 23:03:56 10/23/19 25 10/22/2024 Urina lysis compl ete W Refle x Cultu re panel - Urine mucus [#/area] in urine sediment by automated count Urine findin g text: none seen Not Available Not Available 10/27/2024 23:03:56 10/23/19 25 10/22/2024 Urina lysis compl ete W Refle x Cultu re panel - Urine epithelial cells.[place] [#/area] in urine sediment by automated count Urine findin g normal Not Available Not Available 23:03:56 10/23/19 25 10/22/2024 CBC W Auto Diffe renti al panel - Blood leukocytes [#/volume] in blood by automated count 6.4 x10'3 /uL low: 4.2x10 '3/uLh igh: 10.8x1 0'3/uL normal Not Available Not Available 10/27/2024 23:03:55 10/23/19 25 10/22/2024 CBC W Auto Diffe renti al panel - Blood erythrocytes [#/volume] in blood by automated count 4.58 x10'6 /uL low: 4.1x10 '6/uLh igh: 5.8x10 '6/uL normal Not Available Not Available 10/27/2024 23:03:55 10/23/19 25 10/22/2024 CBC W Auto Diffe renti al panel - Blood hemoglobin [mass/volume ] in blood 13.1 g/dL low: 13.2g/ dLhigh : 17g/dL low Not Available Not Available 10/27/2024 23:03:55 10/23/19 25 10/22/2024 CBC W Auto Diffe renti al panel - Blood hematocrit [volume fraction] of blood by automated count 42.1 % low: 39.3%h igh: 50% normal Not Available Not Available 10/27/2024 23:03:55 10/23/19 25 10/22/2024 CBC W Auto Diffe renti al panel - Blood MCV [entitic mean volume] in red blood cells by automated count 91.9 fL low: 80fLhi gh: 97fL normal Not Available Not Available 10/27/2024 23:03:55 10/23/19 25 10/22/2024 CBC W Auto Diffe renti al panel - Blood MCH [entitic mass] by automated count 28.6 pg low: 27pghi gh: 33pg normal Not Available Not Available 10/27/2024 23:03:55 10/23/19 25 10/22/2024 CBC W Auto Diffe renti al panel - Blood MCHC [entitic mass/volume] in red blood cells by automated count 31.1 g/dL low: 31g/dL high: 36g/dL normal Not Available Not Available 10/27/2024 23:03:55 10/23/1910/22/2024 CBC W Auto Diffe renti al panel - Blood erythrocyte [distwidth] in red blood cells 15.3 % low: 11.8%h igh: 15.5% normal Not Available Not Available 10/27/2024 23:03:55 10/23/19 25 10/22/2024 CBC W Auto Diffe renti al panel - Blood platelets [#/volume] in blood by automated count 177 x10'3 /uL low: 150x10 '3/uLh igh: 400x10 '3/uL normal Not Available Not Available 10/27/2024 23:03:55 10/23/19 25 10/22/2024 CBC W Auto Diffe renti al panel - Blood platelet [entitic mean volume] in blood by automated count 11.4 fL low: 9fLhig h: 12.4fL normal Not Available Not Available 10/27/2024 23:03:55 10/23/19 25 10/22/2024 CBC W Auto Diffe renti al panel - Blood neutrophils/ leukocytes in blood 62.8 % low: 39%hig h: 72% normal Not Available Not Available 10/27/2024 23:03:55 10/23/19 25 10/22/2024 CBC W Auto Diffe renti al panel - Blood lymphocytes/ leukocytes in blood 29.7 % low: 16%hig h: 47% normal Not Available Not Available 10/27/2024 23:03:55 10/23/19 25 10/22/2024 CBC W Auto Diffe renti al panel - Blood monocytes/le ukocytes in blood 5.6 % low: 5%high : 12% normal Not Available Not Available 10/27/2024 23:03:55 10/23/19 25 10/22/2024 CBC W Auto Diffe renti al panel - Blood eosinophils [#/volume] in blood 0.9 % low: 1%high : 7% low Not Available Not Available 10/27/2024 23:03:55 10/23/19 25 10/22/2024 CBC W Auto Diffe renti al panel - Blood basophils/le ukocytes in blood 0.8 % low: 0%high : 2% normal Not Available Not Available 10/27/2024 23:03:55 10/23/19 25 10/22/2024 CBC W Auto Diffe renti al panel - Blood immature granulocytes /leukocytes in blood 0.2 % low: 0%high : 0.5% normal Not Available Not Available 10/27/2024 23:03:55 10/23/19 25 10/22/2024 CBC W Auto Diffe renti al panel - Blood neutrophils [#/volume] in blood 4.04 x10'3 /uL low: 1.5x10 '3/uLh igh: 8x10'3 /uL normal Not Available Not Available 10/27/2024 23:03:55 10/23/19 25 10/22/2024 CBC W Auto Diffe renti al panel - Blood lymphocytes [#/volume] in blood 1.91 x10'3 /uL low: 1.07x1 0'3/uL high: 3.43x1 0'3/uL normal Not Available Not Available 10/27/2024 23:03:55 10/23/19 25 10/22/2024 CBC W Auto Diffe renti al panel - Blood monocytes [#/volume] in blood 0.36 x10'3 /uL low: 0.29x1 0'3/uL high: 0.99x1 0'3/uL normal Not Available Not Available 10/27/2024 23:03:55 10/23/19 25 10/22/2024 CBC W Auto Diffe renti al panel - Blood eosinophils [#/volume] in blood 0.06 x10'3 /uL low: 0.02x1 0'3/uL high: 0.53x1 0'3/uL normal Not Available Not Available 10/27/2024 23:03:55 10/23/19 25 10/22/2024 CBC W Auto Diffe renti al panel - Blood basophils [#/volume] in blood 0.05 x10'3 /uL low: 0.01x1 0'3/uL high: 0.08x1 0'3/uL normal Not Available Not Available 10/27/2024 23:03:55 10/23/19 25 10/22/2024 CBC W Auto Diffe renti al panel - Blood immature granulocytes [#/volume] in blood 0.01 x10'3 /uL low: 0x10'3 /uLhig h: 0.05x1 0'3/uL normal Not Available Not Available 10/27/2024 23:03:55 10/23/1910/22/2024 CBC W Auto Diffe renti al panel - Blood nucleated erythrocytes /leukocytes [ratio] in blood 0 % high: 0% normal Not Available Not Available 10/27/2024 23:03:55 10/23/1910/22/2024 CBC W Auto Diffe renti al panel - Blood nucleated erythrocytes [#/volume] in blood by automated count 0 x10'3 /uL normal Not Available Not Available 10/28/19 23:03:55 07/07/19 24 07/02/2023 US, [email or web address] y No observ ation record ed. [address] [facility] [address], [place], [address], 07/09/2023 06:16:04 04/09/2004/08/2024 trans -thor acic echoc ardio gram (TTE) (PROC ) No observ ation record ed. [address] [facility] [address], [address], 04/14/2024 01:39:00 Result Notes None recorded. Problems Name Problem SNOMED Code Status Onset Date Resolution Date Notes Provider Name and Address Organization Details Recorded Time Benign prostatic hyperplas ia 302608641 Active Not Available [facility] 2 04:33:44 Tobacco user 887887585 Active [facility] Available [facility] 04:33:44 Upper respirato ry infection 45359196 Active Not Available [facility] 2 04:33:44 Hypothyro idism 69455562 Active [facility] 04:33:45 Vitamin D deficienc y 24614503 Active Not Available [facility] 2 04:33:44 Perniciou s anemia 87240488 Active Not Available [facility] 2 04:33:44 Screening for malignant neoplasm of colon Active 2017 Not Available [facility] 2 04:33:44 Congestiv e heart failure 90325110 Active 2017 ejection fraction at 25 % on 12/13/2020 [facility] Available [facility] [facility] 04:33:44 Dental abscess 330918186 Active 2017 Not Available [facility] 2 04:33:44 Automatic implantab le cardiac defibrill ator in situ 399131711 Active 2018 Not Available [facility] 2 04:33:44 Screening for malignant neoplasm of prostate Active 2018 Not Available [facility] 2 04:33:44 Obese 651500204 Active 2018 [facility] Available [facility] 04:33:44 Acute bronchiti s 40844049 Active 2018 Not Available [facility] 2 04:33:44 Acute contact dermatiti s 795153188 Active 2019 Not Available [facility] 2 04:33:44 Acute folliculi tis 103581533 Active 2019 Not Available [facility] 2 04:33:44 Right side sciatica 20789289555 9101 Active 2020 [facility] Available [facility] 04:33:44 Pain of left hip joint 98047370481 9100 Active 2020 Not Available [facility] 2 04:33:44 Pain of left shoulder joint 93826335026 365485 Active 2020 Not Available [facility] 2 04:33:44 Normal grief reaction 638092805 Active 2020 Not Available [facility] 2 04:33:44 Chondroca lcinosis of left hip 13775457925 19563 Active 2020 Not Available [facility] 2 04:33:44 Acute sinusitis 91603059 Active 2021 Not Available [facility] 2 04:33:44 Administr ation of pneumococ jori vaccine Active 2021 Not Available [facility] 2 04:33:44 Administr ation of diphtheri a and tetanus vaccine Active 2021 Not Available [facility] 2 04:33:44 Sleep apnea 78730303 Active 2021 Maurice Carrera PA-C Attn: Accounting ,[address] [facility], [place], [address] , [place] [facility] 2 22:03:28 High hemoglobi n A1c level 242838690 Active 2021 Maurice Carrera PA-C Attn: Accounting ,[address] [facility], [place], [address] , [place] [facility] 2 15:39:29 Glucose tolerance test outside reference range 802681147 Active 2022 New Moy MD Attn: Accounting ,[address] [place], [address] , [place] [facility] 3 11:27:40 Muscle pain 39027900 Active 2022 Left biceps after hearing pop New Moy MD Attn: Accounting ,[address] [facility], [place], [address] , [place] [facility] 3 11:30:39 Chronic kidney disease stage 3A 789538522 Active 2022 New Moy MD Attn: Accounting ,[address] [place], [address] , [place] [facility] 3 19:08:07 Medicatio n monitorin g Active 2024 New Moy MD Attn: Accounting ,[address] [place], [address] , [place] [facility] 5 16:56:18 Psoriasis 4922237 Active Not Available [facility] 2 04:33:44 Pain of shoulder region 11030096 Active Not Available [facility] 2 04:33:44 Low back pain 440616423 Active Not Available [facility] 2 04:33:44 Essential hypertens ion 32880024 Active Not Available [facility] 2 04:33:44 Hyperlipi demia 63635352 Active Not Available [facility] 2 04:33:44 Chronic obstructi ve pulmonary disease 59132310 Active Not Available [facility] 2 04:33:44 Dyspnea on exertion 83296589 Active Not Available [facility] 2 04:33:44 Prostate specific antigen outside reference range 636420894 Active Not Available [facility] 2 04:33:44 Sinusitis 32509562 Active 2016 Not Available [facility] 2 04:33:44 Administr ation of influenza vaccine Active 2016 Not Available [facility] 2 04:33:44 Problem Notes Documentation Provider Name and Address Organization Details Recorded Time Cardiothoracic Surgery Consult Note : This document (1 of ) was received from [email or web address] on 10/12/2024 through Direct Message along with the following message body content: Patient Name: JAZMÍN RAMOS. Patient : 1950. Patient . Giselle arce, [place] [facility] 10/12/2024 10:44:56 Procedures Surgical History Date Name Laterality Status Provider Name and Address Organization Details Recorded Time 02/04/20 23 open heart surgery completed Griselda Delgado [place] [facility] 03/10/2023 11:20:27 07/20/19 19 Defibrillator completed Griselda Delgado [place] [facility] 09/29/2018 15:40:22 Imaging Results None recorded. Procedure Notes None recorded. Medical Equipment None Reported. Allergies No known drug allergies Medications Name Sig Start Date Stop Date Status Note LastModified by Organization Details LastModified Time levothyroxi n tab 125mcglevot hyroxine sodium active Not Available Not Available Not Available tamsulosin cap 0.4mgtamsul osin hcl active Not Available Not Available Not Available prednisone tab 10mgprednis one active Not Available Not Available Not Available lisinopril tab 10mglisinop ril active Not Available Not Available Not Available gabapentin cap 300mggabape ntin active Not Available Not Available Not Available ibuprofen tab 800mgibupro fen active Not Available Not Available Not Available simvastatin 40 mg tabs 06/24 completed Not Available Not Available Not Available cyclobenzap rine hcl 10 mg tabs 06/24 completed Not Available Not Available Not Available levothyroxi ne sodium 125 mcg tabs 06/17 completed Not Available Not Available Not Available clonazepam tab 0.5mgclonaz epam active Not Available Not Available Not Available clobetasol cre 0.05%clobet asol propionate active Not Available Not Available N ot Available hydroco/apa p tab 10-325mghyd rocodone/ac etaminophen active Not Available Not Available Not Available levothyroxi n tab 137mcglevot hyroxine sodium active Not Available Not Available Not Available tamsulosin hcl 0.4 mg caps 06/24 completed Not Available Not Available Not Available prednisone 20 mg tabs 06/24 completed Not Available Not Available Not Available clobetasol propionate 0.05 % crea 06/17 completed Not Available Not Available Not Available hydrocodone /acetaminop hen 10-325 mg tabs 06/24 completed Not Available Not Available Not Available ciprofloxac n tab 500mgciprof loxacin hcl active Not Available Not Available Not Available gabapentin 300 mg caps 06/24 completed Not Available Not Available Not Available azithromyci n tab 250mgazithr omycin active Not Available Not Available Not Available naproxen tab 500mgnaprox en active Not Available Not Available Not Available simvastatin tab 40mgsimvast atin active Not Available Not Available Not Available diazepam tab 10mgdiazepa m active Not Available Not Available Not Available voltaren 1 % gel 06/24 completed Not Available Not Available Not Available duloxetine hcl 60 mg cpep 06/24 completed Not Available Not Available Not Available duloxetine cap 60mgduloxet ine hcl active Not Available Not Available Not Available methylpred hussein 4mgmethylpr ednisolone dose pack active Not Available Not Available No t Available lisinopril 10 mg tabs 06/24 completed Not Available Not Available Not Available cyclobenzap rine 10 mg tablet TAKE 1 TABLET BY MOUTH EVERY DAY AT BEDTIME 05/28 completed Not Available Not Available Not Available furosemide 40 mg tablet TAKE 1 TABLET BY MOUTH EVERY DAY 09/21 completed Not Available Not Available Not Available atorvastati n 40 mg tablet 09/21 completed Not Available Not Available Not Available promethazin e-DM 6.25 mg-15 mg/5 mL oral syrup Take 5 mL every 4 hours by oral route as needed for 10 days. 06/17 completed Not Available Not Available Not Available levothyroxi ne 137 mcg tablet take one tablet by mouth once daily active Not Available Not Available No t Available carvedilol 6.25 mg tablet TAKE 1 TABLET BY MOUTH TWICE DAILY 09/21 completed Not Available Not Available Not Available prednisone 10 mg tablet 09/21 completed Not Available Not Available Not Available azithromyci n 250 mg tablet TAKE 2 TABLETS (500 MG) BY ORAL ROUTE ONCE DAILY FOR 1 DAY THEN 1 TABLET (250 MG) BY ORAL ROUTE ONCE DAILY FOR 4 DAYS 11/14 completed Not Available Not Available Not Available ibuprofen 800 mg tablet TAKE 1 TABLET BY MOUTH THREE TIMES DAILY 09/21 completed Not Available Not Available Not Available prednisone 20 mg tablet TAKE 2 TABLETS BY MOUTH TWICE DAILY FOR 2 DAYS, THEN 1 TWICE DAILY FOR 5 DAYS, THEN 1/2 TWICE DAILY FOR 2 DAYS THEN 1/2 TABLET ON DAY 10 05/27 completed Not Available Not Available Not Available dofetilide 250 mcg capsule TAKE 1 CAPSULE BY MOUTH TWICE DAILY active Not Available Not Available No t Available midodrine 5 mg tablet 09/21 completed Not Available Not Available Not Available clobetasol 0.05 % topical cream APPLY A THIN LAYER TO THE AFFECTED AREA(S) BY TOPICAL ROUTE 2 TIMES PER DAY 06/24 completed Not Available Not Available Not Available clindamycin HCl 150 mg capsule 03/09 completed Not Available Not Available Not Available ciprofloxac in 500 mg tablet TAKE 1 TABLET BY MOUTH EVERY 12 HOURS 06/24 completed Not Available Not Available Not Available hydrocodone 10 mg-acetamin ophen 325 mg tablet TAKE 1 TABLET BY MOUTH THREE TIMES DAILY NEEDED. MUST LAST 30 DAYS. active Not Available Not Available No t Available peg-electro lyte solution 420 gram oral solution 10/30 completed Not Available Not Available Not Available liothyronin e 5 mcg tablet 06/17 completed Not Available Not Available Not Available aspirin 81 mg tablet,kurt yed release TAKE 1 TABLET BY MOUTH EVERY DAY active Not Available Not Available No t Available spironolact one 25 mg tablet TAKE 1 TABLET BY MOUTH EVERY DAY 09/21 completed Not Available Not Available Not Available simvastatin 40 mg tablet TAKE 1 TABLET BY MOUTH EVERY NIGHT AT BEDTIME active Not Available Not Available No t Available carvedilol 3.125 mg tablet 06/17 completed Not Available Not Available Not Available Depo-Medrol 80 mg/mL suspension for injection 02/27 completed Not Available Not Available Not Available Kenalog 40 mg/mL suspension for injection Take 40 mg by injection route. 02/27 completed Not Available Not Available Not Available levothyroxi ne 100 mcg tablet TAKE 1 TABLET BY MOUTH EVERY DAY ON AN EMPTY STOMACH active Not Available Not Available No t Available alprazolam 0.5 mg tablet 06/17 completed Not Available Not Available Not Available potassium chloride ER 20 mEq tablet,exte nded release(par t/cryst) TAKE 1 TABLET BY MOUTH DAILY 09/21 completed Not Available Not Available Not Available magnesium oxide 400 mg (241.3 mg magnesium) tablet TAKE 1 TABLET BY MOUTH EVERY DAY active Not Available Not Available No t Available amiodarone 400 mg tablet 09/21 completed Not Available Not Available Not Available tamsulosin 0.4 mg capsule TAKE 1 CAPSULE BY MOUTH DAILY active Not Available Not Available No t Available diazepam 2 mg tablet 06/17 completed Not Available Not Available Not Available hydrocodone 7.5 mg-acetamin ophen 325 mg tablet Take 1 tablet 3 times a day by oral route as needed. 09/21 completed Not Available Not Available Not Available cephalexin 500 mg capsule TAKE 1 CAPSULE BY MOUTH THREE TIMES DAILY FOR 5 DAYS active Not Available Not Available No t Available cyanocobala min (vit B-12) 1,000 mcg/mL injection solution Inject 1000 microgram s every month by subcutane ous route. 11/14 completed Not Available Not Available Not Available levothyroxi ne 125 mcg tablet TAKE 1 TABLET BY MOUTH EVERY DAY IN THE MORNING 03/03 completed cut back to 112 mcg Not Available Not Available Not Available lisinopril 10 mg tablet TAKE 1 TABLET BY MOUTH EVERY DAY 06/24 completed Not Available Not Available Not Available losartan 25 mg tablet TAKE 1 TABLET BY MOUTH DAILY active Not Available Not Available No t Available nicotine 21 mg/24 hr daily transdermal patch APPLY 1 PATCH EXTERNALL Y TO THE SKIN EVERY DAY 09/04 completed Not Available Not Available Not Available gabapentin 300 mg capsule TAKE 2 CAPSULES BY MOUTH THREE TIMES DAILY active Not Available Not Available No t Available diclofenac sodium 75 mg tablet,kurt yed release TAKE 1 TABLET BY MOUTH TWICE DAILY active Not Available Not Available No t Available furosemide 20 mg tablet TAKE 1 TABLET BY MOUTH EVERY OTHER DAY DIRECTED active Not Available Not Available No t Available ergocalcife rol (vitamin D2) 1,250 mcg (50,000 unit) capsule TAKE 1 CAPSULE BY MOUTH 1 TIME A WEEK active Not Available Not Available No t Available clobetasol 0.05 % topical ointment APPLY THIN LAYER TOPICALLY TO THE AFFECTED AREA TWICE DAILY 09/04 completed Not Available Not Available Not Available albuterol sulfate HFA 90 mcg/actuati on aerosol inhaler INHALE 2 PUFFS BY MOUTH EVERY 4 TO 6 HOURS 10/30 completed Not Available Not Available Not Available celecoxib 100 mg capsule 06/17 completed Not Available Not Available Not Available betamethaso ne dipropionat e 0.05 % topical ointment APPLY A THIN LAYER TO THE AFFECTED AREA(S) BY TOPICAL ROUTE twice DAILY to right thigh 06/24 completed Not Available Not Available Not Available calcitriol 0.25 mcg capsule TAKE 1 CAPSULE BY MOUTH DAILY active Not Available Not Available No t Available finasteride 5 mg tablet TAKE 1 TABLET BY MOUTH EVERY DAY 05/28 completed Not Available Not Available Not Available levothyroxi ne 112 mcg tablet TAKE 1 TABLET BY MOUTH EVERY DAY IN THE MORNING 09/04 completed Not Available Not Available Not Available amoxicillin 875 mg-potassiu m clavulanate 125 mg tablet TAKE 1 TABLET BY MOUTH EVERY 12 HOURS FOR 10 DAYS 09/04 completed Not Available Not Available Not Available Benadryl Allergy 25 mg tablet Take 1 tablet every day by oral route at bedtime for 30 days. 09/04 completed Not Available Not Available Not Available Laxative (bisacodyl) 5 mg tablet TAKE 6 TABLETS BY MOUTH AT 8AM ON 8 10/30 completed Not Available Not Available Not Available duloxetine 30 mg capsule,del ayed release Take 1 capsule every day by oral route in the evening for 7 days. 09/04 completed Not Available Not Available Not Available duloxetine 60 mg capsule,del ayed release TAKE 1 CAPSULE BY MOUTH EVERY DAY 10/30 completed Not Available Not Available Not Available omega-3 acid ethyl esters 1 gram capsule TAKE 1 CAPSULE BY MOUTH ONCE DAILY WITH A MEAL 10/30 completed Not Available Not Available Not Available Fish Oil 340 mg-1,000 mg capsule TAKE 1 CAPSULE BY MOUTH TWICE DAILY WITH FOOD 09/04 completed Not Available Not Available Not Available Symbicort 160 mcg-4.5 mcg/actuati on HFA aerosol inhaler Inhale 2 puffs twice a day by inhalatio n route as directed for 30 days. 06/24 completed Not Available Not Available Not Available cholecalcif otto (vitamin D3) 1,250 mcg (50,000 unit) capsule TAKE 1 CAPSULE BY MOUTH EVERY WEEK WITH MEALS 09/04 completed Not Available Not Available Not Available Voltaren 1 % topical gel APPLY 2 GRAMS TO THE AFFECTED AREA FOUR TIMES DAILY 06/24 completed Not Available Not Available Not Available omega 3-dha-epa-f isha oil 1,000 mg (120 mg-180 mg) capsule Take 1 capsule twice a day by oral route with meals for 30 days. 05/28 completed Not Available Not Available Not Available Chantix Starting Month Box 0.5 mg (11)-1 mg (42) tablets in dose pack Take 0.5 tablets every day by oral route in the morning for 5 days. 06/24 completed Not Available Not Available Not Available omega 3s 300 mg-dha-epa- fish oil 1,000 mg capsule,del ayed release TAKE 1 CAPSULE BY MOUTH DAILY WITH MEALS FOR 30 DAYS 10/30 completed Not Available Not Available Not Available Pennsaid 20 mg/gram/act uation (2 %) topical soln in metered-dos e pump APPLY 2 PUMPS TO THE AFFECTED AREAS TWO TIMES DAILY 10/30 completed Not Available Not Available Not Available Farxiga 5 mg tablet TAKE 1 TABLET BY MOUTH EVERY DAY 09/21 completed Not Available Not Available Not Available potassium chloride ER 20 mEq tablet,exte nded release TAKE 1 TABLET BY MOUTH DAILY 09/21 completed Not Available Not Available Not Available Anoro Ellipta 62.5 mcg-25 mcg/actuati on powder for inhalation INHALE 1 PUFF BY MOUTH EVERY DAY DIRECTED 10/30 completed Not Available Not Available Not Available Entresto 24 mg-26 mg tablet TAKE 1 TABLET BY MOUTH TWICE DAILY 05/28 completed Not Available Not Available Not Available Trelegy Ellipta 100 mcg-62.5 mcg-25 mcg powder for inhalation 10/30 completed Not Available Not Available Not Available Wixela Inhub 250 mcg-50 mcg/dose powder for inhalation INHALE 1 PUFF(S) TWICE A DAY BY INHALATIO N ROUTE 05/28 completed Not Available Not Available Not Available COVID-19 test specimen collection TEST DIRECTED 09/04 completed Not Available Not Available Not Available Trelegy Ellipta 200 mcg-62.5 mcg-25 mcg powder for inhalation Inhale 1 puff every day by inhalatio n route for 30 days. 10/30 completed Not Available Not Available Not Available Vitals Date Recorded Body height Body mass index (BMI) Body weight Body temperature Oxygen saturation Oxygen saturation in Arterial blood by Pulse oximetry Heart rate Systolic And Diastolic Provider Name and Address Organization Details Last Updated DateTime 4 161.29 cm 28.1 kg/m2 58424.3 7 g 98 [degF] 95 % 95 % 80 /min 96/58 mm[Hg] Gayathri Rossi [place] [facility] 4 11:45:41 Date Recorded Body height Body mass index (BMI) Body weight Heart rate Oxygen saturation Oxygen saturation in Arterial blood by Pulse oximetry Systolic And Diastolic Provider Name and Address Organization Details Last Updated DateTime 5 161.29 cm 27 kg/m2 30307.2 5 g 66 /min 97 % 97 % 135/71 mm[Hg] Freda Chung [place] [facility] 5 16:30:58 Date Recorded Body height Body mass index (BMI) Body weight Oxygen saturation Oxygen saturation in Arterial blood by Pulse oximetry Heart rate Systolic And Diastolic Provider Name and Address Organization Details Last Updated DateTime 4 161.29 cm 27.7 kg/m2 89747.1 9 g 96 % 96 % 80 /min 106/68 mm[Hg] Gayathri Rossi MA [facility] 4 11:53:29 Date Recorded Body height Body mass index (BMI) Body weight Oxygen saturation Oxygen saturation in Arterial blood by Pulse oximetry Heart rate Systolic And Diastolic Provider Name and Address Organization Details Last Updated DateTime 161.29 cm 27.5 kg/m2 23808.5 9 g 98 % 98 % 80 /min 106/74 mm[Hg] Amy Carrera MA [facility] 4 16:57:02 Date Recorded Body height Heart rate Body mass index (BMI) Body weight Systolic And Diastolic Provider Name and Address Organization Details Last Updated DateTime 06/04/2023 161.29 cm 80 /min 28.8 kg/m2 27790.74 g 117/80 mm[Hg] Precious Rowan MA [facility] 06/04/2023 11:25:10 Date Recorded Oxygen saturation Oxygen saturation in Arterial blood by Pulse oximetry Provider Name and Address Organization Details Last Updated DateTime 06/04/2023 93 % 93 % Gayathri Rossi MA [facility] 06/04/2023 11:28:43 Social History Question Answer Notes LastModified by Organizat ion Details LastModified Time Tobacco Smoking Status Former Smoker LEATHA Douglas, [facility] 03/10/2023 11:20:13 Do You Have An Advance Directive? No Information not available 07/13/2014 Are You Blind Or Do You Have Difficulty Seeing? No Information not available 07/13/2014 What Is Your Level Of Caffeine Consumption? Occasional Information not available 07/13/2014 How Much Tobacco Do You Chew? None Information not available 07/13/2014 Are You Deaf Or Do You Have Serious Difficulty Hearing? No Information not available 07/13/2014 What Type Of Diet Are You Following? REGULAR Information not available 07/13/2014 Education 8 Information no t available 07/13/2014 Are There Any Guns Present In Your Home? No Information not available 07/13/2014 Marital Status Informatio n not available 07/13/2014 What Was The Date Of Your Most Recent Tobacco Screening? 03/23/2024 Information not available 03/23/2024 What Is Your Current Pack Years? 10-19packyears Information not available 04/30/2021 Performs Monthly Self-breast Exam? No Information no t available 07/13/2014 What Is Your Relationship Status? Information not available 04/30/2021 Do You Use Your Seat Belt Or Car Seat Routinely? Yes Information not available 04/30/2021 Seat Belts Used Routinely Yes Information not available 07/13/2014 Are You Sexually Active? Yes Information not available 04/30/2021 Smoke Alarm In Home Yes Information not available 07/13/2014 At What Age Did You Start Smoking Tobacco? 15 Information not available 07/13/2014 Are You Passively Exposed To Smoke? Yes Information no t available 04/30/2021 How Much Tobacco Do You Smoke? 1 PPW Information not available 03/23/2024 General Stress Level Medium Information not available 07/13/2014 Do You Use Sunscreen Routinely? No Information not available 07/13/2014 Has Tobacco Cessation Counseling Been Provided? No [email or web address] Information not available 01/19/2024 On What Date Was Tobacco Cessation Counseling Provided? 03/23/2024 Information not available 03/23/2024 Do You Have Difficulty Walking Or Climbing Stairs? No Information not available 07/13/2014 Sex: Unknown Functional Status Question Answer Note LastModified by Organizat ion Details LastModified Time Do you use any illicit or recreational drugs? No Information not available 04/30/2021 Do you or have you ever used any other forms of tobacco or nicotine? No Information not available 04/30/2021 What is your level of alcohol consumption? None Information not available 07/13/2014 Do you have difficulty doing errands alone? No Information not available 07/13/2014 What is your occupation? retired Information not available 07/13/2014 Do you have difficulty dressing or bathing? No Information not available 07/13/2014 What is your exercise level? Occasional Information not available 07/13/2014 Mental Status Question Answer Note LastModified by Organization D etails LastModified Time Do you have difficulty concentrating, remembering or making decisions? No Information no t available 07/13/2014 Family History Relationship Description Onset Age of this Age Resolved Age Notes LastModified by Organization Details LastModified Time Mother Diabetes mellitus Not available 2014 09:56:50 Father Diabetes mellitus Not available 2014 09:56:50 Father Hypertensive disorder Not available 2014 09:56:50 Brother Diabetes mellitus Not available 2014 09:56:50 Brother Hypertensive disorder Not available 2014 09:56:50 Brother Disorder of thyroid gland Not available 2014 09:56:50 Sister Diabetes mellitus Not available 2014 09:56:50 Medical History Condition Response High Blood Pressure Y High Cholesterol Y Thyroid Problems Y GI Problems Y Immunizations Vaccine Type Date Status Note Provider Nam e and Address Organization Details Recorded Time SARS-COV-2 (COVID-19) vaccine, UNSPECIFIED 1 completed Not Available [facility] 01/15/2022 04:33:45 SARS-COV-2 (COVID-19) vaccine, UNSPECIFIED 1 completed Not Available [facility] 01/15/2022 04:33:45 COVID-19, mRNA, LNP-S, PF, 100 mcg/0.5mL dose or 50 mcg/0.25mL dose 1 completed Not Available [facility] 01/15/2022 04:33:45 Influenza, split virus, quadrivalent, preservative 6 completed Not Available [facility] 07/03/2019 02:43:39 Influenza, split virus, quadrivalent, preservative 7 completed Not Available [facility] 07/03/2019 02:47:20 Influenza, split virus, quadrivalent, PF 8 completed Not Available [facility] 07/03/2019 02:36:25 Influenza, split virus, quadrivalent, preservative 9 completed Not Available [facility] 07/03/2019 02:44:15 Influenza, split virus, quadrivalent, preservative 1 completed Glenda Mel[place] [facility] 04/30/2021 12:26:19 Tdap 2 completed [place]ara [place] [facility] 09/04/2021 11:59:47 pneumococcal polysaccharide PPV23 2 completed Dayanara Ramirez [place] [facility] 09/04/2021 11:55:06 Influenza, split virus, quadrivalent, preservative 5 completed Not Available [facility] 07/03/2019 02:44:16 Influenza, split virus, quadrivalent, preservative 2 completed Maurice Carrera PA-C Attn: Accounting[address] [place], [address], [place] [facility] 04/14/2022 20:22:16 Past Encounters Encounter ID Performer Location Encounter Start Date Encounter Closed Date Diagnosis/Indication Diagnosis SNOMED-CT Code Diagnosis ICD10 Code Diagnosis Note [id number] Ninoska Galloway MD [facility] (Adult Med) [address] [place] [phone] 07/13/2014 09:40:25 07/13/2014 11:12:35 Benign prostatic hyperplasia [id number] Tobacco user [id number] Upper resp iratory infection [id number] Hypothyroidism 70362677 Vitamin D deficiency 96567117 Pernicious anemia 89757491 [id number] [facility] [address] [place] [address] [phone] 0 12/06/2014 09:19:33 12/06/2014 10:46:50 Psoriasis 0712775 Benign pro static hyperplasia 344420964 Hypothyroidism 92691557 Pernicious anemia 83418093 Tobacco user [id number] Upper resp iratory infection 21424471 Vitamin D deficiency 60884928 [facility] 60031877 [id number] [facility] (Adult Med) [address] [place] [address] [phone] 0 03/08/2015 09:38:35 03/08/2015 10:59:38 Benign prostatic hyperplasia 485925873 Hypothyroidism 08650536 Pernicious anemia 86857484 Psoriasis 5799006 [facility] 84711477 Tobacco user [id number] Vitamin D deficiency 32364350 Adult heal th examination 465547530 Low back pain 585510395 [id number] DA Schumacher (Adult Med) [address] [place] [address] [phone] 0 05/09/2015 10:03:11 05/09/2015 16:47:54 Benign prostatic hyperplasia 810884234 N40.0 Hypothyroidism 97029780 E03.9 Low back pain 176831658 M54.5 Pernicious anemia 968976 09 D51.0 Psoriasis 4727935 L40.9 Pain of ould region 89914413 M25.512 Tobacco user 925065050 Z 72.0 Vitamin D deficiency 347 96182 E55.9 Essential hypertension 12851804 I10 Hyperlipidemia 79384196 E78.5 [id number] DA Schumacher (Adult Med) [address] [place] [address] [phone] 0 07/10/2015 09:11:08 07/10/2015 10:29:11 Benign prostatic hyperplasia 555687021 N40.0 Essential hypertension 55944256 I10 Hyperlipidemia 62305569 E78.5 Hypothyroidism 17038414 E03.9 Low back pain 445510659 M54.5 Pernicious anemia 626225 09 D51.0 Psoriasis 1961416 L40.9 Pain of ould region 18340570 M25.512 Tobacco user 529838926 Z 72.0 Vitamin D deficiency 347 73240 E55.9 Chronic ob structive pulmonary disease 64269900 J44.9 [id number] DA Schumacher (Adult Med) [address] [place] [address] [phone] 0 08/10/2015 13:34:11 08/10/2015 18:08:41 Pernicious anemia 77337041 D51.0 [id number] DA Schumacher (Adult Med) [address] [place] [address] [phone] 0 09/11/2015 14:55:58 09/11/2015 15:35:06 Benign prostatic hyperplasia 923551497 N40.0 Chronic ob structive pulmonary disease 15138805 J44.9 Hyperlipidemia 16754116 E78.5 Hypothyroidism 07066027 E03.9 Low back pain 140994505 M54.5 Pernicious anemia 189029 09 D51.0 Psoriasis 6405068 L40.9 Vitamin D deficiency 347 86063 E55.9 Screening for malignant neoplasm of prostate 280180584 Z12.5 Anemia screening 3316193 07 Z13.0 [id number] DA Schumacher (Adult Med) [address] [place] [address] 47473-321 0 11/09/2015 09:14:03 11/09/2015 10:24:31 Chronic obstructive pulmonary disease 47837227 J44.9 Dyspnea on exertion 6084 5006 R06.09 Essential hypertension 68789919 I10 Hyperlipidemia 92226941 E78.5 Hypothyroidism 35704109 E03.9 Low back pain 600100365 M54.5 Pernicious anemia 561087 09 D51.0 Prostate s pecific antigen outside reference range 490656887 R97.2 Psoriasis 6083060 L40.9 Pain of sh [place] region 11545347 M25.512 Tobacco user 058887069 Z 72.0 Vitamin D deficiency 347 65156 E55.9 [id number] MD [facility] (Adult Med) [address] [place] [address] 05762-900 0 12/11/2015 15:00:35 12/11/2015 15:42:59 Pernicious anemia 76646348 D51.0 Chronic ob structive pulmonary disease 73550081 J44.9 Essential hypertension 20867517 I10 Hyperlipidemia 90746124 E78.5 Hypothyroidism 44558928 E03.9 Low back pain 938756600 M54.5 Psoriasis 7521943 L40.9 Pain of sh [place]ulder region 65196297 M25.512 Tobacco user 784559889 Z 72.0 Benign pro static hyperplasia 208319506 N40.0 [id number] Ninoska Galloway MD [facility] (Adult Med) [address] [place] [address] 57174-401 0 01/11/2016 15:01:52 01/11/2016 18:01:58 Pernicious anemia 55715144 D51.0 [id number] [address] [facility] (Adult Med) [address] [place] [address] 54241-988 0 03/04/2016 13:42:24 03/04/2016 14:40:31 Prostate specific antigen outside reference range 978185142 R97.2 Administra tion of influenza vaccine 34182577 Z23 Dyspnea on exertion 6084 5006 R06.09 Essential hypertension 01961655 I10 Hyperlipidemia 35925488 E78.5 Hypothyroidism 74746823 E03.9 Low back pain 176572305 M54.5 Pernicious anemia 549848 09 D51.0 Psoriasis 0506002 L40.9 Tobacco user 594432162 Z 72.0 Vitamin D deficiency 347 30406 E55.9 Benign pro static hyperplasia 581520106 N40.0 [id number] [facility] [address] [place] [address] [phone] 0 05/03/2016 14:33:47 05/03/2016 16:17:43 Chronic obstructive pulmonary disease 97600115 J44.9 Prostate s pecific antigen outside reference range 030430714 R97.20 Low back pain 212767424 M54.5 Vitamin D deficiency 347 88312 E55.9 Hypothyroidism 57766323 E03.9 Pain of sh [place] region 08157816 M25.512 Hyperlipidemia 11982779 E78.5 Essential hypertension 03246560 I10 Pernicious anemia 407019 09 D51.0 Psoriasis 8795123 L40.9 [id number] Ninoska Galloway MD [facility] (Adult Med) [address] [place] [address] [phone] 0 08/14/2016 15:44:36 08/14/2016 16:41:41 Sinusitis 53010988 J32.9 [id number] MD [facility] (Adult Med) [address] [place] [address] [phone] 0 12/09/2016 11:46:42 12/10/2016 10:03:57 Psoriasis 7644148 L40.9 Chronic ob structive pulmonary disease 53935133 J44.9 Essential hypertension 64818176 I10 Hyperlipidemia 57648765 E78.5 Hypothyroidism 52300233 E03.9 Low back pain 613651486 M54.5 Vitamin D deficiency 347 25374 E55.9 Pernicious anemia 662456 09 D51.0 Prostate s pecific antigen outside reference range 369736146 R97.20 Tobacco user 783302641 Z 72.0 [id number] [facility] [address] [place] [address] 61902-170 0 02/27/2017 15:32:55 02/27/2017 16:42:36 Pernicious anemia 69497633 D51.0 Administra tion of influenza vaccine 39386474 Z23 Chronic ob structive pulmonary disease 93212255 J44.9 Prostate s pecific antigen outside reference range 528943203 R97.20 Low back pain 255268430 M54.5 Vitamin D deficiency 347 08686 E55.9 Hypothyroidism 74945391 E03.9 Essential hypertension 72908664 I10 Psoriasis 4674743 L40.9 Hyperlipidemia 95564698 E78.5 [id number] Ninos[address] G[address]ay [address] [facility] (Adult Med) [address] [place] [address] [phone] 0 05/13/2017 11:56:20 05/13/2017 13:31:04 Pernicious anemia 38541794 D51.0 Tobacco user 348959035 Z 72.0 Hypothyroidism 34902884 E03.9 Hyperlipidemia 86541749 E78.5 Essential hypertension 60754364 I10 Vitamin D deficiency 347 26542 E55.9 Low back pain 433670135 M54.5 Psoriasis 9133420 L40.9 [id number] [address] [facility] (Adult Med) [address] [place] [address] [phone] 0 08/13/2017 10:20:41 08/13/2017 11:19:51 Chronic obstructive pulmonary disease 35287181 J44.9 Low back pain 431415300 M54.5 Hypothyroidism 86887145 E03.9 Vitamin D deficiency 347 99500 E55.9 Hyperlipidemia 03049582 E78.5 Essential hypertension 23169600 I10 Pernicious anemia 441359 09 D51.0 Psoriasis 9833834 L40.9 Prostate s pecific antigen outside reference range 569786498 R97.20 [id number] Ninoska Galloway MD [facility] (Adult Med) [address] [place] [address] [phone] 0 10/15/2017 11:17:32 10/15/2017 12:33:24 Low back pain 166899466 M54.5 Pernicious anemia 713253 09 D51.0 Screening for malignant neoplasm of colon 210743302 Z12.11 Hypothyroidism 40460041 E03.9 Prostate s pecific antigen outside reference range 195024550 R97.20 Hyperlipidemia 34200803 E78.5 Essential hypertension 04152168 I10 Psoriasis 7315177 L40.9 Pain of sh [place]der region 54536992 M25.512 Vitamin D deficiency 347 55794 E55.9 Chronic ob structive pulmonary disease 60072955 J44.9 Tobacco user 212076480 Z 72.0 [id number] [facility] (Adult Med) [address] [place] [address] 28422-777 0 01/27/2018 15:50:12 01/27/2018 17:27:11 Chronic obstructive pulmonary disease 78727326 J44.9 Prostate s pecific antigen outside reference range 197349868 R97.20 Hyperlipidemia 07853125 E78.5 Hypothyroidism 88296250 E03.9 Pernicious anemia 074240 09 D51.0 Congestive heart failure 22697397 I50.9 Vitamin D deficiency 347 50881 E55.9 Low back pain 909305472 M54.5 Essential hypertension 35405158 I10 Dyspnea on exertion 6084 5006 R06.09 Psoriasis 3615277 L40.9 [id number] [address] G[address] [facility] (Adult Med) [address] [place] [address] 14158-026 0 02/24/2018 11:31:12 02/24/2018 13:33:45 Dental abscess 639906063 K04.7 Hypothyroidism 58774109 E03.9 Prostate s pecific antigen outside reference range 971059227 R97.20 Vitamin D deficiency 347 01123 E55.9 Hyperlipidemia 82730465 E78.5 Essential hypertension 84121902 I10 Pernicious anemia 572076 09 D51.0 Tobacco user 404813934 Z 72.0 [id number] [address] [facility] (Adult Med) [address] [place] [address] [phone] 0 03/24/2018 11:28:44 03/24/2018 13:14:24 Administration of influenza vaccine 15250803 Z23 Vitamin D deficiency 347 90016 E55.9 Congestive heart failure 29596711 I50.9 Tobacco user 974870997 Z 72.0 Chronic ob structive pulmonary disease 94690664 J44.9 Low back pain 931853159 M54.5 Hypothyroidism 75999965 E03.9 Hyperlipidemia 84331073 E78.5 Essential hypertension 47164545 I10 Pernicious anemia 391803 09 D51.0 Psoriasis 9451131 L40.9 [id number] [facility] (Adult Med) [address] [place] [address] [phone] 0 06/24/2018 10:37:49 06/24/2018 11:56:25 Congestive heart failure 06920797 I50.9 Tobacco user 256833563 Z 72.0 Chronic ob structive pulmonary disease 02040844 J44.9 Vitamin D deficiency 347 37519 E55.9 Hypothyroidism 08208997 E03.9 Hyperlipidemia 45531857 E78.5 Essential hypertension 87155269 I10 Pernicious anemia 062811 09 D51.0 [id number] [facility] (Adult Med) [address] [place] [address] 92601-249 0 09/29/2018 15:13:36 09/30/2018 10:08:16 Dental abscess 109894502 K04.7 Pernicious anemia 173738 09 D51.0 Automatic implantable cardiac defibrillator in situ 134791547 Z95.810 Congestive heart failure 79008793 I50.9 Chronic ob structive pulmonary disease 87442523 J44.9 Vitamin D deficiency 347 55588 E55.9 Hypothyroidism 64688438 E03.9 Essential hypertension 02560535 I10 Tobacco user 541442155 Z 72.0 Low back pain 606526680 M54.5 Hyperlipidemia 24857720 E78.5 Psoriasis 9552890 L40.9 [id number] [address] G[address] [facility] (Adult Med) [address] [place] [address] 86988-999 0 11/25/2018 09:58:33 11/25/2018 12:08:10 Congestive heart failure 53587516 I50.9 Screening for malignant neoplasm of prostate 406737675 Z12.5 Chronic ob structive pulmonary disease 31656568 J44.9 Vitamin D deficiency 347 19119 E55.9 Hypothyroidism 21235669 E03.9 Hyperlipidemia 72130647 E78.5 Obese 261126826 E66.9 Essential hypertension 33449762 I10 Pernicious anemia 647844 09 D51.0 Low back pain 906405849 M54.5 [id number] Ninoska Galloway MD [facility] (Adult Med) [address] [place] [address] [phone] 0 03/09/2019 15:31:04 03/09/2019 16:27:33 Automatic implantable cardiac defibrillator in situ 268999223 Z95.810 Congestive heart failure 71720105 I50.9 Chronic ob structive pulmonary disease 02825731 J44.9 Low back pain 593050649 M54.5 Vitamin D deficiency 347 95711 E55.9 Hypothyroidism 65852410 E03.9 Essential hypertension 90732212 I10 Obese 940520191 E66.9 Administra tion of influenza vaccine 66152655 Z23 Pernicious anemia 965869 09 D51.0 Hyperlipidemia 99373642 E78.5 Psoriasis 8377056 L40.9 [id number] [facility] (Adult Med) [address] [place] [address] 27488-031 0 06/17/2019 14:46:29 06/21/2019 09:01:57 Automatic implantable cardiac defibrillator in situ 035785095 Z95.810 Benign pro static hyperplasia 186280340 N40.0 Chronic ob structive pulmonary disease 18727111 J44.9 Congestive heart failure 09969127 I50.9 Essential hypertension 71190843 I10 Hyperlipidemia 44453361 E78.5 Hypothyroidism 73296933 E03.9 Low back pain 774316533 M54.5 Obese 288135396 E66.9 Pernicious anemia 595581 09 D51.0 Vitamin D deficiency 347 63330 E55.9 [id number] DA Schumacher (Adult Med) [address] [place] [address] 47649-046 0 09/16/2019 11:05:44 09/16/2019 11:48:07 Sinusitis 86951044 J32.9 Low back pain 311134265 M54.5 Vitamin D deficiency 347 89062 E55.9 Automatic implantable cardiac defibrillator in situ 545347676 Z95.810 Chronic ob structive pulmonary disease 02789082 J44.9 Essential hypertension 50641502 I10 Hyperlipidemia 08866191 E78.5 [id number] MD [facility] (Adult Med) [address] [place] [address] 48875-931 0 10/21/2019 12:42:45 10/22/2019 11:41:06 Acute contact dermatitis 238151343 L25.9 Acute folliculitis 54675 7007 L73.9 Benign pro static hyperplasia 037399464 N40.0 Congestive heart failure 99431870 I50.9 Essential hypertension 24028930 I10 Hyperlipidemia 11018758 E78.5 Hypothyroidism 70565188 E03.9 Low back pain 645025825 M54.5 Vitamin D deficiency 347 30843 E55.9 Psoriasis 7721214 L40.9 [id number] MD [facility] (Adult Med) [address] [place] [address] [phone] 0 11/26/2019 17:02:52 11/26/2019 17:50:03 Acute contact dermatitis 099327738 L25.9 Psoriasis 9297378 L40.9 Chronic ob structive pulmonary disease 62726692 J44.9 Congestive heart failure 61511083 I50.9 Essential hypertension 24488579 I10 Hyperlipidemia 64353342 E78.5 Hypothyroidism 06258096 E03.9 Low back pain 973020000 M54.5 Obese 381592261 E66.9 Vitamin D deficiency 347 47674 E55.9 Tobacco user 789786189 Z 72.0 [id number] MD [facility] (Adult Med) [address] [place] [address] 43288-576 0 02/28/2020 08:08:07 02/28/2020 13:22:20 Automatic implantable cardiac defibrillator in situ 603360945 Z95.810 Chronic ob structive pulmonary disease 98664578 J44.9 Essential hypertension 88061271 I10 Hyperlipidemia 73758545 E78.5 Hypothyroidism 44471140 E03.9 Obese 319366384 E66.9 Pernicious anemia 735222 09 D51.0 Tobacco user 130003984 Z 72.0 Vitamin D deficiency 347 47993 E55.9 Screening for malignant neoplasm of prostate 936827053 Z12.5 Prostate s pecific antigen outside reference range 744489017 R97.20 Congestive heart failure 61348638 I50.9 [id number] [address] [facility] (Adult Med) [address] [place] [address] [phone] 0 03/29/2020 08:18:11 03/29/2020 11:46:28 Chronic obstructive pulmonary disease 15225430 J44.9 Automatic implantable cardiac defibrillator in situ 929549043 Z95.810 Congestive heart failure 28614565 I50.9 Essential hypertension 31182418 I10 Hyperlipidemia 91848075 E78.5 Hypothyroidism 37362409 E03.9 Low back pain 062677371 M54.5 Obese 286739103 E66.9 Pernicious anemia 440943 09 D51.0 Psoriasis 5552183 L40.9 Pain of sh lder region 95357224 M25.512 Vitamin D deficiency 347 77019 E55.9 Tobacco user 379970224 Z 72.[id number] [facility] (Adult Med) [address] [place] [address] 60048-839 0 06/01/2020 08:16:58 06/01/2020 12:51:05 Automatic implantable cardiac defibrillator in situ 809092962 Z95.810 Benign pro static hyperplasia 282712430 N40.0 Chronic ob structive pulmonary disease 57752993 J44.9 Congestive heart failure 82576418 I50.9 Essential hypertension 21736129 I10 Hyperlipidemia 57529687 E78.5 Hypothyroidism 80311251 E03.9 Low back pain 811185296 M54.5 Obese 971713183 E66.9 Pernicious anemia 432500 09 D51.0 Psoriasis 4619521 L40.9 Tobacco user 790934264 Z 72.0 Vitamin D deficiency 347 92772 E55.9 [id number] [facility] [address] [place] [address] 50221-919 0 07/05/2020 07:55:04 07/05/2020 12:19:08 Right side sciatica 2288379295 92405 M54.31 Automatic implantable cardiac defibrillator in situ 269444888 Z95.810 Chronic ob structive pulmonary disease 23813519 J44.9 Congestive heart failure 99714006 I50.9 Essential hypertension 42963440 I10 Hyperlipidemia 34661157 E78.5 Hypothyroidism 25153194 E03.9 Low back pain 921251239 M54.5 Pernicious anemia 092945 09 D51.0 Psoriasis 7538619 L40.9 Pain of sh [place] region 21767263 M25.512 Tobacco user 103734028 Z 72.0 Vitamin D deficiency 347 88637 E55.9 [id number] [facility] [address] [place] [address] 63645-157 0 08/04/2020 08:06:10 08/04/2020 12:27:27 Pain of left hip joint 6832026800 66494 M25.552 Automatic implantable cardiac defibrillator in situ 976190420 Z95.810 Pain of le ft shoulder joint 5243076806 9887199 M25.512 Chronic ob structive pulmonary disease 79904473 J44.9 Congestive heart failure 76002806 I50.9 Essential hypertension 85757995 I10 Hyperlipidemia 41017287 E78.5 Hypothyroidism 22571595 E03.9 Low back pain 367725026 M54.5 Pernicious anemia 983141 09 D51.0 Tobacco user 702941685 Z 72.0 Vitamin D deficiency 347 27230 E55.9 [id number] [facility] [address] [place] [address] 50977-550 0 09/14/2020 08:46:33 09/14/2020 11:55:02 Congestive heart failure 09917585 I50.9 Essential hypertension 80494001 I10 Hyperlipidemia 40912293 E78.5 Hypothyroidism 52733411 E03.9 Low back pain 891900312 M54.5 Normal grief reaction 27 3229271 F43.20 Mom 09/05/2020 Vitamin D deficiency 347 10753 E55.9 Dental abscess 697449257 K04.7 Chronic ob structive pulmonary disease 91250103 J44.9 Pernicious anemia 198504 09 D51.0 Psoriasis 8097989 L40.9 Right side sciatica 3202 623794 21800 M54.31 [id number] Ninoska Galloway MD [facility] (Adult Med) [address] [place] [address] 78942-126 0 11/14/2020 15:20:35 11/14/2020 16:23:33 Pain of left hip joint 6506058737 39562 M25.435 [id number] Ninoska Galloway MD [facility] (Adult Med) [address] [place] [address] 65790-599 0 01/18/2021 15:45:32 01/22/2021 14:20:05 Essential hypertension 28990899 I10 Low back pain 020463649 M54.5 Pain of le ft hip joint 5330968336 30277 M25.552 Chronic ob structive pulmonary disease 34936822 J44.9 Automatic implantable cardiac defibrillator in situ 441921655 Z95.810 Benign pro static hyperplasia 920663994 N40.0 Congestive heart failure 08221287 I50.9 Hyperlipidemia 94254545 E78.5 Hypothyroidism 50209182 E03.9 Pernicious anemia 760278 09 D51.0 Psoriasis 7385528 L40.9 Right side sciatica 3202 127018 12395 M54.31 Tobacco user 652404504 Z 72.0 Vitamin D deficiency 347 17749 E55.9 [id number] MD [facility] (Adult Med) [address] [place] [address] 00109-904 0 03/20/2021 12:19:45 03/20/2021 13:00:04 Chondrocalcinosis of left hip 4552520306 824930 M11.252 Automatic implantable cardiac defibrillator in situ 031102919 Z95.810 Chronic ob structive pulmonary disease 26301670 J44.9 Congestive heart failure 55407130 I50.9 Essential hypertension 78955219 I10 Hyperlipidemia 35537143 E78.5 Hypothyroidism 74328390 E03.9 Low back pain 163276564 M54.50 Pernicious anemia 133478 09 D51.0 Psoriasis 9827561 L40.9 Tobacco user 691240992 Z 72.0 Vitamin D deficiency 347 41506 E55.9 [id number] [address] G[address] [facility] (Adult Med) [address] [place] [address] 77560-618 0 04/30/2021 09:39:36 05/01/2021 12:53:01 Administration of influenza vaccine 56955433 Z23 Pain of le ft hip joint 3254542960 77493 M25.552 Vitamin D deficiency 347 54444 E55.9 Screening for malignant neoplasm of prostate 718294139 Z12.5 [id number] [address] [facility] (Adult Med) [address] [place] [address] 75261-271 0 06/11/2021 15:33:20 06/11/2021 16:48:36 Automatic implantable cardiac defibrillator in situ 335382408 Z95.810 Benign pro static hyperplasia 482312353 N40.0 Chondrocal cinosis of left hip 7579837157 991660 M11.252 Chronic ob structive pulmonary disease 98501336 J44.9 Congestive heart failure 32168570 I50.9 Essential hypertension 90147726 I10 Hyperlipidemia 61901767 E78.5 Hypothyroidism 73484983 E03.9 Low back pain 116897848 M54.50 Vitamin D deficiency 347 85843 E55.9 Tobacco user 494557456 Z 72.0 Pernicious anemia 646226 09 D51.0 Obese 285916959 E66.9 [id number] N[address] [facility] (Adult Med) [address] [place] [address] 65015-778 0 07/25/2021 09:13:47 07/25/2021 12:55:46 Pain of left hip joint 2465773445 95579 M25.552 Acute sinusitis 09542792 J01.90 Hyperlipidemia 13705168 E78.5 Low back pain 940453621 M54.50 Automatic implantable cardiac defibrillator in situ 289901835 Z95.810 Chondrocal cinosis of left hip 1294365433 689167 M11.252 Chronic ob structive pulmonary disease 10099343 J44.9 Congestive heart failure 69462747 I50.9 Essential hypertension 84918932 I10 Hypothyroidism 82049212 E03.9 Psoriasis 7649760 L40.9 Right side sciatica 3202 212165 53127 M54.31 Tobacco user 991301948 Z 72.0 Vitamin D deficiency 347 75376 E55.9 [id number] [address] [facility] (Adult Med) [address] [place] [address] [phone] 0 09/04/2021 09:38:49 09/05/2021 10:02:37 Administration of pneumococcal vaccine 57634416 Z23 Administra tion of diphtheria and tetanus vaccine 96150183 Z23 Chronic ob structive pulmonary disease 34998497 J44.9 Congestive heart failure 64793287 I50.9 Screening for malignant neoplasm of colon 997773331 Z12.11 [id number] [facility] (Adult Med) [address] [place] [address] 08179-629 0 10/03/2021 11:41:49 10/03/2021 12:35:04 Chronic obstructive pulmonary disease 76164408 J44.9 Essential hypertension 77223676 I10 Hyperlipidemia 14047686 E78.5 Hypothyroidism 56936330 E03.9 Pain of le ft hip joint 9300627826 81999 M25.552 Low back pain 473866957 M54.50 Vitamin D deficiency 347 77064 E55.9 Automatic implantable cardiac defibrillator in situ 344107484 Z95.810 Benign pro static hyperplasia 717411677 N40.0 Chondrocal cinosis of left hip 9657563171 639138 M11.252 Congestive heart failure 22283078 I50.9 Pernicious anemia 088178 09 D51.0 Tobacco user 657964145 Z 72.0 [id number] MD [facility] (Adult Med) [address] [place] [address] 20967-080 0 12/06/2021 13:25:19 12/10/2021 13:12:20 Hyperlipidemia 34641913 E78.5 Chondrocal cinosis of left hip 8995421983 840281 M11.252 Pain of le ft hip joint 6956743241 31812 M25.552 Benign pro static hyperplasia 517870853 N40.0 Congestive heart failure 60800495 I50.9 Essential hypertension 07384316 I10 Hypothyroidism 37275696 E03.9 Low back pain 386460926 M54.50 Obese 796225047 E66.9 Pernicious anemia 335758 09 D51.0 Prostate s pecific antigen outside reference range 874095131 R97.20 Tobacco user 057408816 Z 72.0 Vitamin D deficiency 347 08877 E55.9 [id number] Ninoska Galloway MD [facility] (Adult Med) [address] [place] [address] [phone] 0 01/04/2022 10:00:29 01/07/2022 08:56:52 Prostate specific antigen outside reference range 363707346 R97.20 Low back pain 245042795 M54.50 Screening for malignant neoplasm of colon 146810813 Z12.11 Benign pro static hyperplasia 491752718 N40.0 Chondrocal cinosis of left hip 6176435249 070301 M11.252 Chronic ob structive pulmonary disease 84725811 J44.9 Congestive heart failure 76833216 I50.9 Essential hypertension 48258749 I10 Hyperlipidemia 62317994 E78.5 Hypothyroidism 25710830 E03.9 Pernicious anemia 776393 09 D51.0 Tobacco user 403602939 Z 72.0 Vitamin D deficiency 347 87511 E55.9 [id number] [address] [facility] (Adult Med) [address] [place] [address] 67816-562 0 02/08/2022 13:40:56 02/11/2022 10:52:24 Pain of left hip joint 9903149221 11442 M25.552 Automatic implantable cardiac defibrillator in situ 862813590 Z95.810 Benign pro static hyperplasia 157496793 N40.0 Chondrocal cinosis of left hip 6067105502 140622 M11.252 Chronic ob structive pulmonary disease 98868278 J44.9 Congestive heart failure 87541515 I50.9 Essential hypertension 46991020 I10 Hyperlipidemia 89053848 E78.5 Hypothyroidism 83384395 E03.9 Low back pain 821701765 M54.50 Pernicious anemia 925086 09 D51.0 Sleep apnea 45736996 G47 .30 Vitamin D deficiency 347 11739 E55.[id number] [facility] (Adult Med) [address] [place] [address] 71165-540 0 03/11/2022 15:44:47 03/12/2022 10:40:53 Low back pain 686289621 M54.50 [id number] [address] [facility] (Adult Med) [address] [place] [address] 76736-506 0 04/12/2022 14:34:28 04/15/2022 12:02:22 Pain of left hip joint 9908550725 92559 M25.552 Administra tion of influenza vaccine 28393848 Z23 Hyperlipidemia 38845707 E78.5 Hypothyroidism 28967560 E03.9 Vitamin D deficiency 347 21456 E55.9 High hemog lobin A1c level 852573522 R73.[id number] [place] [address] [facility] (Adult Med) [address] [place] [address] [phone] 0 05/28/2022 15:39:28 05/29/2022 16:06:50 Chondrocalcinosis of left hip 0442097825 110904 M11.772 [id number] [facility] [address] [place] [address] [phone] 0 08/26/2022 10:19:43 08/28/2022 11:18:32 Glucose tolerance test outside reference range 252089540 R73.09 Pain of le ft shoulder joint 1396204852 6528093 M25.512 Essential hypertension 22416407 I10 High hemog lobin A1c level 988564241 R73.09 Muscle pain 27888761 M79 .10 [id number] [place] [facility] (Adult Med) [address] [place] [address] [phone] 0 10/30/2022 15:55:35 11/01/2022 15:06:53 Overweight 367964609 E66.3 Congestive heart failure 18372183 I50.9 Essential hypertension 13611262 I10 Hypothyroidism 96506694 E03.9 Hyperlipidemia 65069529 E78.5 Low back pain 464597107 M54.50 Chondrocal cinosis of left hip 0222668551 856017 M11.563 [id number] [place] MD [facility] (Adult Med) [address] [place] [address] [phone] 0 03/10/2023 11:03:29 03/11/2023 12:11:24 Chronic obstructive pulmonary disease 30122910 J44.9 Congestive heart failure 87852116 I50.9 Essential hypertension 95381303 I10 Hyperlipidemia 55039191 E78.5 Hypothyroidism 43188053 E03.9 Low back pain 555001488 M54.50 Vitamin D deficiency 347 04912 E55.9 22: 65.0 Chondrocal cinosis of left hip 0969572481 536871 M11.[id number] [facility] (Adult Med) [address] [place] [address] 75198-107 0 06/04/2023 11:11:28 06/11/2023 16:11:27 Chronic obstructive pulmonary disease 59560327 J44.9 Essential hypertension 18121165 I10 High hemog lobin A1c level 326142837 R73.09 Congestive heart failure 65115899 I50.9 Benign pro static hyperplasia 648946537 N40.0 Screening for malignant neoplasm of prostate 634070165 Z12.5 Hyperlipidemia 89418219 E78.5 Hypothyroidism 21867301 E03.9 Pernicious anemia 623830 09 D51.0 Tobacco user 059096123 Z 72.0 [id number] [place] [facility] (Adult Med) [address] [place] [address] [phone] 0 09/22/2023 11:09:20 09/25/2023 09:00:19 Overweight 157022048 E66.3 Chronic ki dney disease stage 3A 022764169 N18.31 F/U nephrologi st Essential hypertension 10515039 I10 Hyperlipidemia 91901842 E78.5 Hypothyroidism 10562108 E03.9 Chondrocal cinosis of left hip 9973278121 765776 M11.437 [id number] MD Kika Connors (Adult Med) [address] [place] [address] [phone] 0 01/19/2024 10:57:25 01/22/2024 10:18:03 Overweight 448678551 E66.3 Congestive heart failure 35973361 I50.9 F/U cardiology Essential hypertension 40259329 I10 High hemog lobin A1c level 420315722 R73.09 Hypothyroidism 40782320 E03.9 Pernicious anemia 020169 09 D51.0 Automatic implantable cardiac defibrillator in situ 360279759 Z95.810 Chronic ki dney disease stage 3A 011814240 N18.31 F/U nephrologi st Chondrocal cinosis of left hip 9954969817 853988 M11.[id number] [facility] (Adult Med) [address] [place] [address] [phone] 0 03/23/2024 15:56:50 03/29/2024 14:57:31 Chronic kidney disease stage 3A 687538145 N18.31 F/U nephrologi st Chronic ob structive pulmonary disease 32537157 J44.9 Congestive heart failure 75220934 I50.9 F/U cardiology Essential hypertension 17647366 I10 High hemog lobin A1c level 159595411 R73.09 Hyperlipidemia 45701593 E78.5 Hypothyroidism 38354666 E03.9 Chondrocal cinosis of left hip 6538419777 256816 M11.[id number] [facility] (Adult Med) [address] [place] [address] [phone] 0 09/23/2024 16:20:33 09/24/2024 16:12:19 Medication monitoring 671499250 Z51.81 Chondrocal cinosis of left hip 0968443530 419132 M11.252 Benign pro static hyperplasia 861864227 N40.0 Automatic implantable cardiac defibrillator in situ 161901557 Z95.810 Chronic ki dney disease stage 3A 763789395 N18.31 F/U nephrologi st Essential hypertension 75892682 I10 Hypothyroidism 78417945 E03.9 Obese 028633653 E66.9 Tobacco user 870870222 Z 72.0 Health Concerns Section Related Observation LastModified by Organization Detai ls LastModified Time None Recorded Concern Status LastModified by Organization Details LastModified Time None Recorded Advance Directives Directive N: Payers Insurance Date Sequence Insurance Name Policy Number Policy Peters Covered Member ID Peters Member ID Guarantor Name 01/19/2024 3 [employer] (MEDICARE SUPPLEMENT) Jazmín Ramos [id number] Jazmín Ramos 09/20/2024 1 [place] Jazmín Ramos [id number] Jazmín Ramos 09/20/2024 [place] - RHC - FQHC Jazmín Ramos [id number] Jazmín Ramos 09/20/2024 2 [employer] (MEDICARE SUPPLEMENT) Jazmín Ramos [id number] Jazmín Ramos 01/19/2024 2 [facility] (MEDICARE REPLACEMENT/A DVANTAGE - HMO) [id number] Jazmín Ramos [id number] Jazmín Ramos Notes Date Note Type Note Provider Name and Address Organization Details Recorded Time 06/04/2023 text/html Here for medication refills New Moy MD Attn: Accounting,[address] [facility], [place], [address], [place] 06/04/2023 12:21:47 09/22/2023 text/html Here for routine check. Recently seen by nephrology. Started on losartan and calcitriol. New Moy MD Attn: Accounting,[address] [facility], [place], [address], [place] 09/22/2023 12:04:24 01/19/2024 text/html Here for check up. No new complaints New Moy MD Attn: Accounting,[address] [facility], [place], [address], [place] 01/19/2024 12:39:24 03/23/2024 text/html Here for routine f/u New Moy MD Attn: Accounting,[address] [facility], [place], [address], [place] [facility] 03/23/2024 17:17:58 09/23/2024 text/html Here for f/u. No new complaints. New Moy MD Attn: Accounting,[address] [facility], [place], [address], [place] 09/23/2024 17:05:58
--- NOTE | 2024-12-27 11:20 | ECG_ITS ---
Test Date: 2024-12-27 11:27:57 Measurements Intervals [place] Rate: 74 P: 208 HI: 207 QRS: -73 QRSD: 172 T: 99 QT: 482 QTc: 538 Interpretive Statements ELECTRONIC ATRIAL PACEMAKER ELECTRONIC VENTRICULAR PACEMAKER APPROPRIATE SENSING CAPTURE ARE DEMONSTRATED ABNORMAL RHYTHM ECG No previous ECG available for comparison Electronically Signed On 12-28-2024 09:56:13 CDT by Matt Sanz M.D.
[2024-12-27 11:25] VITALS: PULSE 69
[2024-12-27 11:27] VITALS: BP 118/85; PULSE 72; RESP 17; TEMP 36.4; O2SAT 97
--- OUTSIDE RECORDS SUMMARY | 2024-12-27 11:35 | XMS_ITS | Continuity of Care Document ---
Author Organization [facility] Address [address] [place] [address] Phone Care Team Providers Care Business Dean Name Role Phone Quintin Grant MD Unavailable Unavailable Allergies, Adverse Reactions, Alerts Substance Reaction Status Criticality No Known Allergies Active No Inform ation Medications Medication Instructions Dosage Effective Dates (start - stop) Status Comments Synthroid 75 mcg tablet take 1 tablet (75MCG) by oral route every day 75 MCG - Active [place] 10 mg-325 mg tablet take 1 by Oral route 4 times every day 1 - Active avoid driving or operat emachines Xanax 1 mg tablet take 1 tablet (1MG) by oral route 2 times every day 1 MG - Active avoid driving or operate machines triamcinolone acetonide 0.1 % Topical Cream apply by topical route 2 times every day a thin layer to the affected area(s) 0.00 - Active Neurontin 300 mg capsule take 1 capsule (300MG) by oral route 3 times every day 300 MG - Active avoid driving or operate machines Zocor 40 mg tablet take 1 tablet (40MG) by oral route every day in the evening 40 MG - Active lisinopril 10 mg tablet take 1 tablet (10MG) by oral route every day 10 MG - Active trazodone 100 mg tablet take 1 tablet (100MG) by oral route every bedtime after meals 100 MG - Active Procedures Procedure Date OFFICE/OUTPATIENT VISIT, EST OFFICE/OUTPATIENT VISIT, EST OFFICE/OUTPATIENT VISIT, EST OFFICE/OUTPATIENT VISIT, EST OFFICE/OUTPATIENT VISIT, EST OFFICE/OUTPATIENT VISIT, EST OFFICE/OUTPATIENT VISIT, EST OFFICE/OUTPATIENT VISIT, EST OFFICE/OUTPATIENT VISIT, EST OFFICE/OUTPATIENT VISIT, EST OFFICE/OUTPATIENT VISIT, EST PREV VISIT, EST, AGE 40-64 OFFICE/OUTPATIENT VISIT, NEW Advance Directives Directive Yes / No Effective Date File Name No Information Encounters Encounter Description Practice Location Reason(s) For Visit Diagnoses Date Provider Providers Copied on Encounter [facility], [address], [place], [place], [address], [place] tel:[phone] [facility] No Information 4 Rudy Ribeiro. [address], [place], [place], [address] , [place]. tel:[phone] Referring Provider: Prashanth Quintanilla [address], [place], [place], [address]. tel:[phone] OFFICE/OUTPA TIENT VISIT, [facility], [address], [place], [place], [address], [place] tel:[phone] [facility] back pain (chief complaint)anxie ty (chief complaint)Hypot hyroidism (chief complaint) Dietary surveillance and counselingLumb agoHypothyroid ismGeneralized anxiety disorder 4 Rudy Ribeiro. [address], [place], [place], [address] , [place]. tel:[phone] Referring Provider: Quintin Grant [address], [place], [place], [address]. tel:[phone] OFFICE/OUTPA TIENT VISIT, [facility], [address], [place], [place], [address], [place] tel:[phone] [facility] back pain (chief complaint)anxie ty (chief complaint)hypot hyroidism (chief complaint) Dietary surveillance and counselingLumb agoGeneralized anxiety disorderHypert ension, UnspecifiedOth er and unspecified hyperlipidemia 3 Rudy Ribeiro. [address], [place], [place], [address] , [place]. tel:[phone] Referring Provider: Prashanth Quintanilla [address], [place], [place], [address]. tel:[phone] OFFICE/OUTPA TIENT VISIT, [facility], [address], [place], [place], [address], [place] tel:[phone] [facility] back pain (chief complaint)anxie ty (chief complaint)psori asis (chief complaint) Dietary surveillance and counselingLumb agoGeneralized anxiety disorderOther psoriasis and similar disorders 3 Rudy Ribeiro. [address], [place], [place], [address] , [place]. tel:[phone] Referring Provider: Prashanth Quintanilla [address] [facility] [address], [place], [place], [address]. tel:[phone] OFFICE/OUTPA TIENT VISIT, [facility], [address], [place], [place], [address], [place] tel:[phone] [facility] hypothyroidism (chief complaint)anxie ty (chief complaint)back pain (chief complaint) Dietary surveillance and counselingLumb agoHypothyroid ismGeneralized anxiety disorder 3 Rudy Ratliff [address], [place], [place], [address] , [place]. tel:[phone] Referring Provider: Prashanth Quintanilla [address], [place], [place], [address]. tel:[phone] OFFICE/OUTPA TIENT VISIT, [facility], [address], [place], [place], [address], [place] tel:[phone] [facility] back pain (chief complaint)anxie ty (chief complaint)psori asis (chief complaint) Dietary surveillance and counselingLumb agoGeneralized anxiety disorderHypoth yroidism 3 Rudy Ribeiro. [address], [place], [place], [address] , [place]. [phone] Referring Provider: Quintin Grant, [address], [place], [place], [address]. tel:[phone] OFFICE/OUTPA TIENT VISIT, [facility], [address], [place], [place], [address], [place] tel:[phone] [facility] back pain (chief complaint)anxie ty (chief complaint)psori asis (chief complaint) Dietary surveillance and counselingOthe r psoriasis and similar disordersLumba goHypothyroidi smGeneralized anxiety disorder 3 Rudy Ribeiro. [address], [place], [place], [address] , [place]. [phone] Referring Provider: Prashanth Quintanilla [address], [place], [place], [address]. tel:[phone] OFFICE/OUTPA TIENT VISIT, [facility], [address], [place], [place], [address], [place] tel:[phone] [facility] Hypothyroism (chief complaint)back pain (chief complaint)anxie ty (chief complaint) Dietary surveillance and counselingLumb agoHypothyroid ismGeneralized anxiety disorder 3 Rudy Ribeiro. [address], [place], [place], [address] , [place]. [phone] Referring Provider: Quintin Grant [address], [place], [place], [address]. tel:[phone] OFFICE/OUTPA TIENT VISIT, [facility], [address], [place], [place], [address], [place] tel:[phone] [facility] back pain (chief complaint)anxie ty (chief complaint) Dietary surveillance and counselingHypo thyroidismLumb agoGeneralized anxiety disorderHypert ension, Unspecified 3 Rudy Ribeiro. [address], [place], [place], [address] , [place]. tel:[phone] Referring Provider: Quintin Grant, [address], [place], [place], [address]. tel:[phone] OFFICE/OUTPA TIENT VISIT, [facility], [address], [place], [place], [address], [place] tel:[phone] [facility] back pain (chief complaint)hypot hyroidism (chief complaint)anxie ty (chief complaint) Dietary surveillance and counselingLumb agoHypothyroid ismGeneralized anxiety disorder 0 3201 3 Rudy Ribeiro. [address], [place], [place], [address] , [place]. tel:[phone] Referring Provider: Quintin Grant, [address], [place], [place], [address]. tel:[phone] OFFICE/OUTPA TIENT VISIT, [facility], [address], [place], [place], [address], [place] tel:[phone] [facility] Hypothyroidsim (chief complaint)INsom altagracia (chief complaint)anxie ty (chief complaint)Hiccu p (chief complaint) Dietary surveillance and counselingLumb agoGeneralized anxiety disorderHiccou ghHypothyroidi sm 0 3 Rudy Ribeiro. [address], [place], [place], [address] , [place]. [phone] Referring Provider: Prashanth Quintanilla [address], [place], [place], [address]. tel:[phone] OFFICE/OUTPA TIENT VISIT, [facility], [address], [place], [place], [address], [place] tel:[phone] [facility] back pain (chief complaint)anxie ty (chief complaint)hypot hyroidism (chief complaint)insom altagracia (chief complaint) LumbagoGeneral ized anxiety disorderHypoth yroidism 0 7-201 3 Rudy Ratliff [address], [place], [place], [address] , [place]. tel:[phone] Referring Provider: Quintin Grant, [address], [place], [place], [address]. tel:[phone] PREV VISIT, EST, AGE 40-64 [facility], [address], [place], [place], [address], tel:[phone] [facility] Physical (chief complaint) Dietary surveillance and counselingRout ine Medical ExamRoutine Medical Exam 3 Rudy Ribeiro. [address], [place], [place], [address] , [place]. tel:[phone] Referring Provider: Prashanth Quintanilla [address], [place], [place], [address]. tel:[phone] OFFICE/OUTPA TIENT VISIT, [facility], [address], [place], [place], [address], [place] tel:[phone] [facility] Chronic pain (chief complaint) Dietary surveillance and counselingCHRO MAL PAIN NECLumbagoHype rtension, UnspecifiedOth er and unspecified hyperlipidemia 3 Rudy Ribeiro. [address], [place], [place], [address] , [place]. tel:[phone] Referring Provider: Quintin Grant [address], [place], [place], [address]. tel:[phone] Family History Family Member Type Diagnosis Age At Onset Mother Problem (finding) Alive and well Father Problem (finding) brain aneurysm Brother Problem (finding) Cancer - pancreas Payers Payer name Insurance type Covered republican ID Authoriza tion(s) No Information Social History Type Description Quantity Date Captured Comments Sex Male Smoking Status No Information Chief Complaint And Reason For Visit No Information Plan Of Treatment Date Type Action Status Goal PSA. Due on due Goal Colonoscopy. Due on 013 due Goal Tobacco cessation counseling completed Goal Tobacco cessation counseling completed Goal Tobacco cessation counseling completed Goal Tobacco cessation counseling completed Goal Tobacco cessation counseling completed Goal Tobacco cessation counseling completed Goal Tobacco cessation counseling completed Goal Tobacco cessation counseling completed Goal Tobacco cessation counseling completed Goal Tobacco cessation counseling completed Goal Tobacco cessation counseling completed Goal Tobacco cessation counseling completed Referral Ordered: US THYROID ordered History Of Present Illness Encounter Date Complaint History Of Prese nt Illness No Information Instructions Date Instruction Additional Infor frida Decrease caloric intake Related to Dietary surveillance counseling Dietary counseling Related to Di etary surveillance counseling Dietary counseling Related to Di etary surveillance counseling Decrease caloric intake Related to Dietary surveillance counseling Dietary counseling Related to Di etary surveillance counseling Decrease caloric intake Related to Dietary surveillance counseling Dietary counseling Related to Di etary surveillance counseling Decrease caloric intake Related to Dietary surveillance counseling Dietary counseling Related to Di etary surveillance counseling Decrease caloric intake Related to Dietary surveillance counseling Dietary counseling Related to Di etary surveillance counseling Decrease caloric intake Related to Dietary surveillance counseling Dietary counseling Related to Di etary surveillance counseling Decrease caloric intake Related to Dietary surveillance counseling Decrease caloric intake Related to Dietary surveillance counseling Dietary counseling Related to Di etary surveillance counseling Dietary counseling Related to Di etary surveillance counseling Decrease caloric intake Related to Dietary surveillance counseling Dietary counseling Related to Di etary surveillance counseling Decrease caloric intake Related to Dietary surveillance counseling Decrease caloric intake Related to Dietary surveillance counseling Dietary counseling Related to Di etary surveillance counseling Dietary counseling Related to Di etary surveillance counseling Decrease caloric intake Related to Dietary surveillance counseling Assessments Type Assessment Date No Information
--- OUTSIDE RECORDS SUMMARY | 2024-12-27 11:36 | XMS_ITS ---
Author Organization [facility] Address [address] [place] [address] Care Team Providers Care Medical Physics Teacher Name Role Phone Nicci Gonzalezerjit Unavailable [phone] Problems Problem Type SNOMED Code ICD Code Onset Dates Problem Status W/U Status Risk Notes Problem Chronic kidney disease stage 3A (disorder) (646971451) Chronic kidney disease, stage 3a (N18.31) Active confirmed Encounters Encounter Location Date Provider Diagnosis [place] [facility] [address] [facility] [address] [place] [address] 12/10/2024 Jasen Gonzalez Chronic kidney disease, stage [...] Next Appt Details Provider Name:Jasen Carlos , 02/11/2025 03:15:00 PM, [address] [facility], [facility] [address], [place], [address], Progress Notes * RICHARD JAZMÍNDOB:1950 (74 yo M)Acc No.[id number]:12/10/2024 Progress Notes Patient: JAZMÍN PEREZ Provider: Gaviota ANTONIO MD, F.A.C.P, F.A.S.N. :1950 A ge:74 Y S ex:Male Date:12/10/2024 Address:[address] [place] [address] Subjective: * Chief Complaints: * * Medical [...] Treatment: * Billing Information: * Visit Code: 45315 Office Visit, Est Pt., Level 4. * Procedure Codes: * Electronic signature of Cheko Gonzalez MD on 12/27/2024 at 11:35 AM CDT Sign off status: Pending * Provider: Gaviota ANTONIO MD, F.A.C.P, F.A.S.N. Date: 0 12/10/2024 Generated for Printing/Faxing/eTransmitting on: 12/27/2024 11:35 AM CDT
--- OUTSIDE RECORDS SUMMARY | 2024-12-27 11:36 | XMS_ITS | Continuity of Care Document ---
Author Organization [facility] Address [address] [place] [address] Phone Care Team Providers Care Musical Engineer Name Role Phone Devonte TERRAZAS MD, Maurizio [...] Arthscpy shldr decompression Repair biceps tendon rupture [facility] Cube Combo Unit Slingshot Sling Office/outpatient visit,est, mod 2011 Supplemental Report Office/outpatient visit,est, mod 2011 X-ray exam of shoulder, complete 2011 Supplemental Report MRI upr extr joint, w/o contrast 2011 Office consultation, moderate 2 Advance Directives Directive Yes / No Effective Date File Name No Information Encounters Encounter Description Practice Location Reason(s) For Visit Diagnoses Date Provider Providers Copied on Encounter [facility], [address] [place] [address], [id number], tel:[phone] [facility] No Information 3 Devonte Steven. [address] [place] [address], [id number], [place]. tel:[phone] [facility], [address] [place] [address], [id number], [place] tel:[phone] [facility] No Information 3 Administrati ve Provider. [address] [place] [address], [place], [place], [id number], [place]. tel:[phone] Rating Letter Orthopedic [facility], [address] [place] [address], [id number], [place] tel:[phone] [facility] No Information 2 No Information Office/outpa tient visit,est, [facility], [address] [place] [address], [id number], [place] tel:[phone] [facility] SPRAIN ROTATOR CUFFJOINT PAIN-SHLDER 2 No Information Office/outpa tient visit,est, [facility], [address], [id number], [place] tel:[phone] [facility] JOINT PAIN-SHLDERSPR AIN ROTATOR CUFF -201 2 No Information Office/outpa tient visit,est, mod [facility], [address] [facility] [address], [place], [place], [id number], [place] tel:[phone] [facility] SPRAIN ROTATOR CUFFJOINT PAIN-SHLDER Jan-0 8 2 No Information Office/outpa tient visit,est, low [facility], [address] [facility] [address], [place], [place], [id number], [place] tel:[phone] [facility] JOINT PAIN-SHLDERSPR AIN ROTATOR CUFF Dec- 2 No Information Office/outpa tient visit,est, [facility], [address] [facility] [address], [place], [place], [id number], [place] tel:[phone] [facility] SPRAIN ROTATOR CUFFJOINT PAIN-SHLDER 2 No Information Office/outpa tient visit,est, [facility], [address] [address], [place], [place], [id number], [place] tel:[phone] [facility] JOINT PAIN-SHLDERSPR AIN ROTATOR CUFF October-3 0 2 No Information [facility], [address] [facility] [address], [place], [place], [id number], [place] tel:[phone] [facility] SPRAIN ROTATOR CUFFJOINT PAIN-SHLDER October-0 -201 2 No Information [facility], [address] [facility] [address], [place], [place], [id number], [place] tel:[phone] [facility] JOINT PAIN-SHLDERSPR AIN ROTATOR CUFF Sep-1 0-201 2 No Information [facility], [address] [facility] [address], [place], [place], [id number], [place] tel:[phone] [facility] JOINT PAIN-SHLDER Aug- 6-201 2 No Information [facility], [address] [facility] [address], [place], [place], [id number], [place] tel:[phone] [facility] SPRAIN ROTATOR CUFFJOINT PAIN-SHLDER Mar-0 8 2 No Information [facility], [address] [place] [address], [place], [place], [id number], [place] tel:[phone] [facility] JOINT PAIN-SHLDERSPR AIN ROTATOR CUFF Feb-2 8 2 No Information [facility], [address] [place] [address], [id number], [place] tel:[phone] [facility] [place] SPRAIN ROTATOR CUFFSHOULDER REGION DIS NECSPRAIN SHOULDER/ARM NEC Feb-2 2 No Information Office/outpa tient visit,est, [facility], [address] [place] [address], [place], [place], [id number], [place] tel:[phone] [facility] JOINT PAIN-SHLDERSPR AIN ROTATOR CUFF b-2 2 No Information Office/outpa tient visit,est, [facility], [address] [place] [address], [id number], [place] tel:[phone] [facility] JOINT PAIN-SHLDERSPR AIN ROTATOR CUFF b- 2 No Information [facility], [address] [place] [address], [id number], [place] tel:[phone] [facility] SPRAIN SUPRASPINATUSL OC PRIM OSTEOART-SHLDE RROTATOR CUFF DIS NEC Jul- 2 [facility]. [address] [place] [address], [address], [place], [place], [id number], [place]. tel:[phone] Office consultation , moderate [facility], [address] [place] [address], [id number], [place] tel:[phone] [facility] JOINT PAIN-SHLDER Jul- 2 No Information Family History Family Member Type Diagnosis Age At Onset No Information Payers Payer name Insurance type Covered constitution party ID Authoriza tion(s) No Information Social [...]
--- OUTSIDE RECORDS SUMMARY | 2024-12-27 11:36 | XMS_ITS ---
Author Organization [facility] Address [address] [place] [address] Care Team Providers Care Licensing Court Magistrate Name Role Phone Carlos Jasen Unavailable [phone] Encounters Encounter Location Date Provider Diagnosis [place] [facility] [address] [facility] [address] [place] [address] 09/17/2024 Jasen Gonzalez Plan Of Treatment Next Appt Details Provider Name:Jasen Carlos , 02/11/2025 03:15:00 PM, [address] [facility], [facility] [address], [place], [address], Progress Notes * JAZMÍN RAMOSDOB:1950 (74 yo M)Acc No.[id number]:09/17/2024 Progress Notes Patient: JAZMÍN PEREZ Provider: Gaviota ANTONIO MD, Geno.Sosa.C.P, F.A.S.N. :1950 A ge:74 Y S ex:Male Date:09/17/2024 Address:[address] [place] [address] Subjective: * Chief Complaints: * * Medical History: Objective: * Vitals: Assessment: Plan: * Treatment: * Billing Information: * Visit Code: * Procedure Codes: * Electronic signature of Cheko Gonzalez MD on 12/27/2024 at 11:35 AM CDT Sign off status: Pending * Provider: Gaviota ANTONIO MD, Geno.Sosa.C.P, F.A.S.N. Date: 09/17/2024 Generated for Printing/Faxing/eTransmitting on: 12/27/2024 11:35 AM CDT
--- OUTSIDE RECORDS SUMMARY | 2024-12-27 11:37 | XMS_ITS | Clinical Summary ---
Author Organization [facility] Address [address] [place] [address] Care Team Providers Care Foreign Language Interpreter Name Role Phone Unavailable Primary Care Provider Unavailabl e Social History Tobacco Use Types Packs/Day Years Used Date Smoking Tobacco: Never Assessed Sex and Gender Information Value Date Recorded Sex Assigned at Not on file Legal Sex Male 12:14 AM CDT Gender Identity Not on file Sexual Orientation Not on file Plan of Treatment Health Maintenance Due Date Last Done Comments Hepatitis C Virus (HCV) Screening 1950 TdaP Immunization 1950 Cologuard 1996 Colonoscopy 1996 Colorectal Cancer Screening 1996 Immunochemical Fecal Occult Blood 1996 Zoster Immunization (1 of 2) 2001 SARS-COV-2 Immunization ( season) 2024 02/08/2022, 05/28/2021, 09/11/2020, Additional history exists Influenza Immunization (#1) 02/14/202504/16, 03/09/2019, 03/24/2018, Additional history exists Respiratory Syncytial Virus (RSV) Immunization (Adult) (1 - 1-dose 75+ series) 2026 Pneumococcal Immunization (50+ years) Completed 05/02/2020, 03/31/2015 Hepatitis B Immunization Aged Out No longer eligible based on patient's age to complete this topic Human Papillomavirus (HPV) Immunization Aged Out No longer eligible based on patient's age to complete this topic Meningococcal Immunization (ACWY) Aged Out No longer eligible based on patient's age to complete this topic Rotavirus Immunization Aged Out No lo nger eligible based on patient's age to complete this topic
--- OUTSIDE RECORDS SUMMARY | 2024-12-27 11:37 | XMS_ITS ---
Author Organization [facility] Address [address] [place] [address] Care Team Providers Care Topography Technician Name Role Phone Carlos Jasen Unavailable [phone] Problems Problem Type SNOMED Code ICD Code Onset Dates Problem Status W/U Status Risk Notes Problem Elevation of levels of liver transaminase levels (R74.01) Active confirmed Encounters Encounter Location Date Provider Diagnosis [place] [facility] [address] [facility] [address] [place] [address] 10/29/2024 Jasen Gonzalez Chronic kidney disease, stage [...] Name:Jasen Carlos , 02/11/2025 03:15:00 PM, [address] [facility], [facility] [address], [address], Progress Notes * JAZMÍN RAMOSDOB:1950 (74 yo M)Acc No.[id number]:10/29/2024 Patient: JAZMÍN PEREZ Provider: Gaviota ANTONIO MD, F.A.C.P, F.A.S.N. :1950 A ge:74 Y S ex:Male Date:10/29/2024 Address:[address] [place], [place] [id number] Subjective: * Chief Complaints: Objective: Assessment: * [...] Plan: * Billing Information: * Visit Code: 61933 Office Visit, Est Pt., Level 5. * Procedure Codes: * Electronic signature of Cheko Gonzalez MD on 12/27/2024 at 11:36 AM CDT Sign off status: Pending * Provider: Gaviota ANTONIO MD, F.A.C.P, F.A.S.N. Date: 0 10/29/2024 Generated for Printing/Faxing/eTransmitting on: 0 12/27/2024 11:36 AM CDT
--- NOTE | 2024-12-27 12:07 | ED_ITS ---
HPI - Chest Pain General Chief Complaint: Chest Pain Stated Complaint: right shoulder pain with deep breathing Time Seen by Provider: 12/27/24 11:14 History of Present Illness HPI narrative: Patient has noticed right anterior chest pain/shoulder pain for last 2 days, worse when he takes deep breaths, worse when he moves his right shoulder. Denies any recent injuries. History of 2 heart attacks in the past. Related Data Home Medications ?Medication ?Instructions ?Recorded ?Confirmed ?Last Taken ?Type albuterol sulfate 90 mcg/actuation 1 puff inhalation TID 12/14/20 Unknown History aerosol inhaler carvedilol 6.25 mg tablet 6.25 mg PO Q12H 12/14/20 Unknown History cholecalciferol (vitamin D3) 1,250 1,250 mcg PO WEEKLY 12/14/20 Unknown History mcg (50,000 unit) tablet clobetasol 0.05 % topical ointment 1 applic topical BID 12/14/20 Unknown History diphenhydramine HCl 25 mg capsule 25 mg PO QHS 12/14/20 Unknown History (Benadryl) ergocalciferol (vitamin D2) 1,250 1,250 mcg PO WEEKLY 12/14/20 Unknown History mcg (50,000 unit) capsule finasteride 5 mg tablet 5 mg PO DAILY 12/14/20 Unknown History fluticasone 250 mcg-salmeterol 50 1 inh inhalation BID 12/14/20 Unknown History mcg/dose blistr powdr for inhalation (Wixela Inhub) furosemide 20 mg tablet 20 mg PO QAM 12/14/20 Unknown History gabapentin 300 mg capsule 300 mg PO TID 12/14/20 Unknown History hydrocodone 10 mg-acetaminophen 15 ml PO TID PRN 12/14/20 Unknown History 325 mg/15 mL (15 mL) oral solution ibuprofen 800 mg tablet 800 mg PO TID 12/14/20 Unknown History levothyroxine 112 mcg capsule 112 mcg PO DAILY 12/14/20 Unknown History magnesium oxide 400 mg PO DAILY 12/14/20 Unknown History nicotine 21 mg/24 hr daily 1 patch transdermal DAILY 12/14/20 Unknown History transdermal patch omega-3 fatty acids 1,000 mg 1,000 mg PO BID 12/14/20 Unknown History capsule omega-3 fatty acids-fish oil 340 1 cap PO BID 12/14/20 Unknown History mg-1,000 mg capsule (Fish Oil) potassium chloride 20 mEq 20 meq PO DAILY 12/14/20 Unknown History tablet,extended release prednisone 20 mg tablet 20 mg PO BID 12/14/20 Unknown History simvastatin 40 mg tablet 40 mg PO DAILY 12/14/20 Unknown History Allergies Allergy/AdvReac Type Severity Reaction Status Date / Time No Known Allergies Allergy Unknown Unverified 05/02/14 11:19 Review of Systems 2 Review of Systems: All systems reviewed & are unremarkable except as noted in HPI and below Exam 2 Narrative: EXAMINATION OF ORGAN SYSTEMS/BODY AREAS: Constitutional: Vital signs per nursing GENERAL:[No acute distress, non-toxic appearing.] HEAD: Normal with no signs of head trauma. EYES: EOMI, conjunctiva normal ENT: Hearing grossly intact LUNGS: Nonlabored breathing. HEART: [Regular rate and rhythm] ABD: [Soft], [nontender to palpation] EXT: Normal range of motion; pain really sedated with movement of right shoulder SKIN: [No rashes or lesions.] NEURO: [Alert and oriented x 3. No gross focal sensory or strength deficits.] PSYCH: Normal affect Course Vital Signs Vital signs: Vital Signs Pulse Rate 69 12/27/24 11:25 Temperature 97.6 F 12/27/24 11:27 Pulse Rate 75 12/27/24 15:15 Respiratory Rate 15 12/27/24 15:15 Blood Pressure 114/72 12/27/24 15:15 Pulse Oximetry 98 12/27/24 15:15 Oxygen Delivery Room Air 12/27/24 11:27 MDM - Chest Pain MDM Narrative Medical decision making narrative: Patient presents with right shoulder pain, worse when he moves his shoulder or takes deep breaths, started about 2 days ago was initially severe but it now not as bad. Given his risk factors I did obtain cardiac workup, EKG on my independent interpretation shows paced rhythm, rate 74, SC 207, QRS 172, QTC 538, left axis, no obvious ST elevations or depressions or signs acute ischemia or arrhythmia meeting Sgarbossa criteria Chest x-ray clear on my independent interpretation. Shoulder x-ray per Radiology showing signs of possible rotator cuff etiology. Two troponins here have been negative, D-dimer is negative, patient feels fine now he is not moving his shoulder around, I have discussed the findings with him, he feels very comfortable with outpatient management with Orthopedics, at bedside agreeable to this plan also. Strict return precautions discussed. Will also trial course of steroids. Lab Data 12/27/24 12:02 12/27/24 12:02 Labs: Lab Results 12/27/24 12/27/24 Range/Units 12:02 14:17 WBC 8.1 (4.5-10.0) K/mm3 RBC 4.19 L (4.6-6.20) M/mm3 Hgb 12.0 L (14.0-18.0) g/dL Hct 38.0 L (42.0-52.0) % MCV 90.7 (80-100) fl MCH 28.6 (26-34) pg MCHC 31.6 L (32-36) g/dl RDW 15.8 H (11.5-14.5) % Plt Count 148 L (150-375) k/mm3 MPV 10.6 H (7.4-10.4) fl Immature Gran % (Auto) 0.5 (0-0.5) % Neut % (Auto) 65.9 (45.5-73.1) % Lymph % (Auto) 22.8 (18.3-44.2) % [place] % (Auto) 8.7 H (2.6-8.5) % Eos % (Auto) 1.6 (0-4.4) % Baso % (Auto) 0.5 (0.2-1.2) % Lymph # (Auto) 1.85 (0.9-3.2) K/mm3 [place] # (Auto) 0.7 H (0.1-0.6) K/mm3 Eos # (Auto) 0.1 (0-0.3) K/mm3 Baso # (Auto) 0.0 (0.0-0.1) K/mm3 Abs Immat Gran (auto) 0.04 H (0.00-0.031) K/mm3 Absolute Neuts (auto) 5.4 (1.3-6.7) K/mm3 Absolute Nucleated RBC 0.000 (0.0-0.012) K/mm3 Nucleated RBC % 0.0 (0.0-0.2) % D-Dimer 0.39 (<0.48) ug/mL Sodium 133 L (137-145) mmol/L Potassium 3.8 (3.4-5.0) mmol/L Chloride 104 (98-107) mmol/L Carbon Dioxide 23 (22-30) mmol/L Anion Gap 6 (4-12) mmol/L BUN 16 (9-20) mg/dL Creatinine 1.21 (0.7-1.3) mg/dL Estim Creat Clear Calc 41 ml/min Estimated GFR 59 (59 - ) Glucose 145 H (65-110) mg/dL Calcium 9.3 (8.4-10.2) mg/dL Total Bilirubin 0.8 (0.2-1.3) mg/dL AST 37 (17-59) U/L ALT 19 (6-50) U/L Alkaline Phosphatase 71 (38-126) U/L Troponin I < 0.012 < 0.012 (0.000-0.034) ng/mL NT-Pro-B Natriuret Pep 5390 H (19.9-100) pg/mL Total Protein 7.4 (6.3-8.2) g/dL Albumin 3.9 (3.5-5.1) g/dL Discharge Plan Discharge Clinical Impression: Pain in right shoulder Patient Disposition: Home Condition: Stable Instructions: Shoulder Pain (ED) Additional Instructions: Please follow up with your doctor and your orthopedic surgeon; try the medications as prescribed, if your symptoms get worse or if you start having new chest pain or trouble breathing or anything else concerning. Patient Language: Swedish Prescriptions: New prednisone 20 mg tablet 40 mg PO DAILY 4 Days Qty: 8 0RF methocarbamol 750 mg tablet 750 mg PO TID PRN (Reason: muscle spasm) Qty: 30 0RF No Action albuterol sulfate 90 mcg/actuation HFA aerosol inhaler 1 puff inhalation TID diphenhydramine HCl [Benadryl] 25 mg capsule 25 mg PO QHS carvedilol 6.25 mg tablet 6.25 mg PO Q12H Rx Instructions: must administer with a meal/food cholecalciferol (vitamin D3) 1,250 mcg (50,000 unit) tablet 1,250 mcg PO WEEKLY clobetasol 0.05 % ointment 1 applic topical BID ergocalciferol (vitamin D2) 1,250 mcg (50,000 unit) capsule 1,250 mcg PO WEEKLY finasteride 5 mg tablet 5 mg PO DAILY Fish Oil 340-1,000 mg capsule 1 cap PO BID furosemide 20 mg tablet 20 mg PO QAM gabapentin 300 mg capsule 300 mg PO TID hydrocodone-acetaminophen 10-325 mg/15 mL(15 mL) solution 15 ml PO TID PRN ibuprofen 800 mg tablet 800 mg PO TID levothyroxine 112 mcg capsule 112 mcg PO DAILY magnesium oxide 400 mg magnesium capsule 400 mg PO DAILY nicotine 21 mg/24 hr patch 24 hour 1 patch transdermal DAILY omega-3 fatty acids 1,000 mg capsule 1,000 mg PO BID potassium chloride 20 mEq tablet extended release 20 meq PO DAILY prednisone 20 mg tablet 20 mg PO BID simvastatin 40 mg tablet 40 mg PO DAILY fluticasone propion-salmeterol [Wixela Inhub] 250-50 mcg/dose blister with device 1 inh inhalation BID Follow-up/Referrals: Aurelio Tatum MD [Physician] - 2 Days UNKNOWN,DOCTOR [Primary Care Provider] - Stand Alone Forms: Work/School Release IP
[2024-12-27 12:10] LABS: Hematocrit 38.0 % (42.0-52.0); Hemoglobin 12.0 g/dL (14.0-18.0); Immature Granulocyte Percent A 0.5 % (0-0.5); Lymphocytes Absolute Auto 1.85 K/mm3 (0.9-3.2); Mean Corpuscular HGB Conc 31.6 g/dl (32-36); Mean Corpuscular Hemoglobin 28.6 pg (26-34); Mean Corpuscular Volume 90.7 fl (80-100); Nucleated Red Blood Cells Absolute Auto 0.000 K/mm3 (0.0-0.012); Nucleated Red Blood Cells Perc 0.0 % (0.0-0.2); Platelet Count Result 148 k/mm3 (150-375); Red Blood Count 4.19 M/mm3 (4.6-6.20); White Blood Count 8.1 K/mm3 (4.5-10.0)
[2024-12-27 12:23] LABS: Alanine Aminotransferase 19 U/L (6-50); Albumin Level 3.9 g/dL (3.5-5.1); Alkaline Phosphatase 71 U/L (38-126); Anion Gap 6 mmol/L (4-12); Aspartate Amino Transferase 37 U/L (17-59); Bilirubin,Total 0.8 mg/dL (0.2-1.3); Blood Urea Nitrogen 16 mg/dL (9-20); Calcium 9.3 mg/dL (8.4-10.2); Carbon Dioxide 23 mmol/L (22-30); Chloride 104 mmol/L (98-107); Estimated CRCL calculation 41 ml/min; Estimated Glomerular Filt Rate 59; Glucose 145 mg/dL (65-110); Potassium 3.8 mmol/L (3.4-5.0); Sodium 133 mmol/L (137-145); Total Protein 7.4 g/dL (6.3-8.2)
[2024-12-27 12:30] VITALS: BP 93/64; PULSE 66; RESP 18; O2SAT 99
[2024-12-27 12:34] LABS: NT Pro B Type Natriuretic Pept 5390 pg/mL (19.9-100); Troponin I < 0.012 ng/mL (0.000-0.034)
[2024-12-27 13:26] VITALS: BP 110/68; PULSE 76; RESP 19; O2SAT 99
[2024-12-27 14:00] VITALS: BP 106/66; PULSE 65; RESP 20; O2SAT 99
[2024-12-27 14:43] LABS: Troponin I < 0.012 ng/mL (0.000-0.034)
[2024-12-27 15:15] VITALS: BP 114/72; PULSE 75; RESP 15; O2SAT 98
[2024-12-27] MEDS: KETOROLAC 15 MG/ML VIAL (*BKC) 10 MG IV PUSH (15:37)
== END 2024-12-27 16:10 | disposition home or self-care (01) ==
PROVIDERS: Emergency Provider Emergency Medicine
DX: M25.511 Pain in right shoulder (principal)
CPT/HCPCS: 36415; 71046; 73030; 80053; 83880; 84484; 85025; 85380; 93005; 96374; 99284; J1885; J7512

== ENCOUNTER 2025-04-18 15:49 | Outpatient (CLI) | payer MEDICARE, SELFPAY ==
--- OUTSIDE RECORDS SUMMARY | 2012-06-17 10:22 | XMS_ITS | Continuity of Care Document ---
Author Organization [facility] Address [address] [place] [address] Phone Care Team Providers Care Inspector Machined Parts Name Role Phone Devonte TERRAZAS MD, Maurizio Unavailable Unavailable Allergies, Adverse Reactions, Alerts Substance Reaction Status Criticality No Known Drug Allergies Active No I nformation Procedures Procedure Date Medical Record Copy Medical Record Copy Per Page Rating Letter Office/outpatient visit,est, low 2011 Supplemental Report Supplemental Report Office/outpatient visit,est, low 2011 Office/outpatient visit,est, mod 2011 Supplemental Report Office/outpatient visit,est, low 2011 Supplemental Report Office/outpatient visit,est, mod 2011 Supplemental Report Office/outpatient visit,est, mod 2011 Supplemental Report Postop followup visit Supplemental Report Postop followup visit Supplemental Report Postop followup visit X-ray exam of shoulder, one view 2011 Supplemental Report Postop followup visit Supplemental Report Postop followup visit Supplemental Report Arthroscopic Rotator Cuff Repair 2011 Arthscpy shldr decompression Repair biceps tendon rupture [facility] Cube Combo Unit Slingshot Sling Office/outpatient visit,est, mod 2011 Supplemental Report Office/outpatient visit,est, mod 2011 X-ray exam of shoulder, complete 2011 Supplemental Report MRI upr extr joint, w/o contrast 2011 Office consultation, moderate 2 Advance Directives Directive Yes / No Effective Date File Name No Information Encounters Encounter Description Practice Location Reason(s) For Visit Diagnoses Date Provider Providers Copied on Encounter [facility], [address] [place] [address], [id number], tel:[phone] [facility] No Information 3 Devonte Steven. [address] [place] [address], [id number], [place]. tel:[phone] [facility], [address] [place] [address], [id number], [place] tel:[phone] [facility] No Information 3 Administrati ve Provider. [address] [place] [address], [place], [place], [id number], [place]. tel:[phone] Rating Letter [facility], [address] [place] [address], [id number], [place] tel:[phone] [facility] No Information 2 No Information Office/outpa tient visit,est, [facility], [address] [place] [address], [id number], [place] tel:[phone] [facility] SPRAIN ROTATOR CUFFJOINT PAIN-SHLDER 2 No Information Office/outpa tient visit,est, [facility], [address], [id number], [place] tel:[phone] [facility] JOINT PAIN-SHLDERSPR AIN ROTATOR CUFF -201 2 No Information Office/outpa tient visit,est, mod [facility], [address] [facility] [facility] [address], [place], [place], [id number], [place] tel:[phone] [facility] SPRAIN ROTATOR CUFFJOINT PAIN-SHLDER Jan-0 8 2 No Information Office/outpa tient visit,est, low [facility], [address] [facility] [address], [place], [place], [id number], [place] tel:[phone] [facility] JOINT PAIN-SHLDERSPR AIN ROTATOR CUFF Dec- 2 No Information Office/outpa tient visit,est, [facility] [place] [facility], [address] [facility] [address], [place], [place], [id number], [place] tel:[phone] [facility] SPRAIN ROTATOR CUFFJOINT PAIN-SHLDER 2 No Information Office/outpa tient visit,est, [facility] [place] [facility], [address] [address], [place], [place], [id number], [place] tel:[phone] [facility] JOINT PAIN-SHLDERSPR AIN ROTATOR CUFF October-3 0 2 No Information [facility], [address] [facility] [address], [place], [place], [id number], [place] tel:[phone] [facility] SPRAIN ROTATOR CUFFJOINT PAIN-SHLDER October-0 -201 2 No Information [facility], [address] [facility] [address], [place], [place], [id number], [place] tel:[phone] [facility] JOINT PAIN-SHLDERSPR AIN ROTATOR CUFF Sep-1 0-201 2 No Information [facility], [address] [facility] [address], [place], [place], [id number], [place] tel:[phone] [facility] JOINT PAIN-SHLDER Aug- 6-201 2 No Information [facility], [address] [facility] [address], [place], [place], [id number], [place] tel:[phone] [facility] SPRAIN ROTATOR CUFFJOINT PAIN-SHLDER Mar-0 8 2 No Information [facility], [address] [place] [address], [place], [place], [id number], [place] tel:[phone] [facility] JOINT PAIN-SHLDERSPR AIN ROTATOR CUFF Feb-2 8 2 No Information [facility], [address] [place] [address], [id number], [place] tel:[phone] [facility] [place] SPRAIN ROTATOR CUFFSHOULDER REGION DIS NECSPRAIN SHOULDER/ARM NEC Feb-2 2 No Information Office/outpa tient visit,est, [facility] [place] [facility], [address] [place] [address], [place], [place], [id number], [place] tel:[phone] [facility] JOINT PAIN-SHLDERSPR AIN ROTATOR CUFF b-2 2 No Information Office/outpa tient visit,est, [facility] [place] [facility], [address] [place] [address], [id number], [place] tel:[phone] [facility] JOINT PAIN-SHLDERSPR AIN ROTATOR CUFF b- 2 No Information [facility], [address] [place] [address], [id number], [place] tel:[phone] [facility] SPRAIN SUPRASPINATUSL OC PRIM OSTEOART-SHLDE RROTATOR CUFF DIS NEC Jul- 2 [facility]. [address] [place] [address], [address], [place], [place], [id number], [place]. tel:[phone] Office consultation , moderate [facility], [address] [place] [address], [id number], [place] tel:[phone] [facility] JOINT PAIN-SHLDER Jul- 2 No Information Family History Family Member Type Diagnosis Age At Onset No Information Payers Payer name Insurance type Covered green party ID Authoriza tion(s) No Information Social History Type Description Quantity Date Captured Comments Sex Male Smoking Status No Information Chief Complaint And Reason For Visit No Information Reason For Referral Reason For Referral No Information Plan Of Treatment Date Type Action Status Goal Tobacco cessation counseling completed History Of Present Illness Encounter Date Complaint History Of Prese nt Illness No Information Functional Status Date Functional Assessmen t No Information Instructions Date Instruction Additional Infor mation No Information Assessments Type Assessment Date No Information Patient Care Teams Name Effective Dates (start - stop) Status Members No Information
--- OUTSIDE RECORDS SUMMARY | 2024-03-26 07:45 | XMS_ITS ---
Author Organization [facility] Address [address] [place] [address] Care Team Providers Care Decal Maker Name Role Phone Jasen Gonzalez Unavailable [phone] Medications Medication SIG (Take, Route, Frequency, Duration) Notes Start Date End Date Status Vitamin D (Ergocalciferol) 1.25 MG (95434 UT) TAKE 1 CAPSULE BY MOUTH 1 TIME A WEEK; Duration: 91 Active Losartan Potassium 25 MG 1 tablet Orally Once a day; Duration: 90 day(s) 07/16/2023 Active Calcitriol 0.25 MCG 1 capsule Orally Onc e a day; Duration: 90 day(s) 07/16/2023 04/11/2024 Active Encounters Encounter Location Date Provider Diagnosis [place] [facility] [address] [facility] [address] [place] [address] 03/26/2024 Jasen Gonzalez Chronic kidney disease, stage 3a N18.31 ; Essential (primary) hypertension I10 ; Heart failure, unspecified I50.9 ; Anemia, unspecified D64.9 ; Type 2 diabetes mellitus with hyperglycemia E11.65 and Hypothyroidism, unspecified E03.9 Assessments Encounter Date Diagnosis (ICD Code) Assessment Notes Treatment Notes Treatment Clinical Notes Section Notes 03/26/2024 Chronic kidney disease, stage 3a (ICD-10 - N18.31) 03/26/2024 Essential (primary) hypertension (ICD-10 - I10) 03/26/2024 Heart failure, unspecified (ICD-10 - I50.9) 03/26/2024 Anemia, unspecified (ICD-10 - D64.9) 03/26/2024 Type 2 diabetes mellitus with hyperglycemia (ICD-10 - E11.65) 03/26/2024 Hypothyroidism, unspecified (ICD-10 - E03.9) Plan Of Treatment Next Appt Details Provider Name:Jasen Gonzalez , 05/11/2025 03:30:00 PM, [address] [facility], [facility] [address], [place], [address], Progress Notes * JAZMÍN RAMOSDOB:1950 (74 yo M)Acc No.[id number]:03/26/2024 Progress Notes Patient: JAZMÍN PEREZ Provider: Gaviota ANTONIO MD, Geno.Sosa.Rommel.P, F.A.S.N. :1950 A ge:73 Y S ex:Male Date:03/26/2024 Address:[address] [place], [place] [id number] Subjective: * Chief Complaints: * * Medical History: * Medications: T aking Calcitriol 0.25 MCG Capsule 1 capsule Orally Once a day , stop date 04/11/2024, Taking Losartan Potassium 25 MG Tablet 1 tablet Orally Once a day , Taking Vitamin D (Ergocalciferol) 1.25 MG (92097 UT) Capsule TAKE 1 CAPSULE BY MOUTH 1 TIME A WEEK Objective: * Vitals: Assessment: * Assessment: 1. C hronic kidney disease, stage 3a - N18.31 (Primary) 2 . E ssential (primary) hypertension - I10 3 . H eart failure, unspecified - I50.9 ?4. A nemia, unspecified - D64.9 5 . T ype 2 diabetes mellitus with hyperglycemia - E11.65 6 . H ypothyroidism, unspecified - E03.9 Plan: * Treatment: * Billing Information: * Visit Code: 50494 Office Visit, Est Pt., Level 4. * Procedure Codes: * Electronic signature of Cheko Gonzalez MD on 04/18/2025 at 03:59 PM CAMPUS INTERVIEWS INTERN Sign off status: Pending * Provider: Gaviota ANTONIO MD, F.Sosa.C.P, F.A.S.N. Date: Generated for Printing/Faxing/eTransmitting on: 06/18/2024 03:59 PM CAMPUS INTERVIEWS INTERN
--- OUTSIDE RECORDS SUMMARY | 2024-07-08 11:15 | XMS_ITS ---
Author Organization [facility] Address [address] [facility] [address] [place] [address] Care Team Providers Care Sand Blaster Name Role Phone Carlos Jasen Unavailable [phone] Medications Medication SIG (Take, Route, Frequency, Duration) Notes Start Date End Date Status Vitamin D (Ergocalciferol) 1.25 MG (39563 UT) TAKE ONE CAPSULE BY MOUTH ONCE A WEEK; Duration: 90 Active Flomax 0.4 MG 1 capsule Orally Onc e a day; Duration: 90 day(s) 03/26/2024 01/11/2025 Active Losartan Potassium 25 MG 1 tablet Orally Once a day; Duration: 90 day(s) Active Calcitriol 0.25 MCG 1 capsule Orally Onc e a day; Duration: 90 day(s) Active Problems Problem Type SNOMED Code ICD Code Onset Dates Problem Status W/U Status Risk Notes Problem Coronary artery disease (41749587) CAD (coronary artery disease) (I25.10) Active confirmed Problem Hyperlipidemia (51891315) Hyperlipidemia, unspecified (E78.5) Active confirmed Encounters Encounter Location Date Provider Diagnosis [facility] [address] [facility] [address] [place] [address] 07/08/2024 Jasen Gonzalez Chronic kidney disease, stage 3a N18.31 ; CAD (coronary artery disease) I25.10 ; Hyperkalemia E87.5 and Hyperlipidemia, unspecified E78.5 Assessments Encounter Date Diagnosis (ICD Code) Assessment Notes Treatment Notes Treatment Clinical Notes Section Notes 07/08/2024 Chronic kidney disease, stage 3a (ICD-10 - N18.31) 07/08/2024 CAD (coronary artery disease) (ICD-10 - I25.10) 07/08/2024 Hyperkalemia (ICD-10 - E87.5) 07/08/2024 Hyperlipidemia, unspecified (ICD-10 - E78.5) Plan Of Treatment Next Appt Details Provider Name:Jasen Gonzalez , 05/11/2025 03:30:00 PM, [address] [facility], [facility] [address], [place], [address], Progress Notes * JAZMÍN RAMOSDOB:1950 (74 yo M)Acc No.[id number]:07/08/2024 Patient: JAZMÍN PEREZ Provider: Gaviota ANTONIO MD, Geno.Sosa.C.P, F.A.S.N. :1950 A ge:74 Y S ex:Male Date:07/08/2024 Address:[address] [place], [place] [id number] Subjective: * Chief Complaints: Objective: Assessment: * Assessment: 1. C hronic kidney disease, stage 3a - N18.31 (Primary) 2 . C AD (coronary artery disease) - I25.10 3 . H yperkalemia - E87.5 4 . H yperlipidemia, unspecified - E78.5 Plan: * Billing Information: * Visit Code: 02267 Office Visit, Est Pt., Level 5. * Procedure Codes: * Electronic signature of Cheko Gonzalez MD on 04/18/2025 at 03:58 PM MULTICULTURAL INTERNSHIP Sign off status: Pending * Provider: Gaviota ANTONIO MD, Geno.Sosa.C.P, F.A.S.N. Date: 07/08/2024 Generated for Printing/Faxing/eTransmitting on: 06/18/2024 03:58 PM MULTICULTURAL INTERNSHIP
--- OUTSIDE RECORDS SUMMARY | 2024-08-06 08:00 | XMS_ITS ---
Author Organization [facility] Address [address] [facility] [address] [facility] [address] [place] [address] Care Team Providers Care Religion Professor Name Role Phone Yves Gonzalezjit Unavailable [phone] Encounters Encounter Location Date Provider Diagnosis [place] [facility] [address] [facility] [address] [place] [address] 08/06/2024 Jasen Gonzalez Plan Of Treatment Next Appt Details Provider Name:Jasen Carlos , 05/11/2025 03:30:00 PM, [address] [facility], [facility] [address], [place], [address], Progress Notes * JAZMÍN RAMOSDOB:1950 (74 yo M)Acc No.[id number]:08/06/2024 Progress Notes Patient: JAZMÍN PEREZ Provider: Gaviota ANTONIO MD, Geno.Sosa.C.P, F.A.S.N. :1950 A ge:74 Y S ex:Male Date:08/06/2024 Address:[address] [place] [address] Subjective: * Chief Complaints: * * Medical History: Objective: * Vitals: Assessment: Plan: * Treatment: * Billing Information: * Visit Code: * Procedure Codes: * Electronic signature of Cheko Gonzalez MD on 04/18/2025 at 03:58 PM CONTRACT AGENT Sign off status: Pending * Provider: Gaviota ANTONIO MD, Geno.Sosa.C.P, F.A.S.N. Date: 08/06/2024 Generated for Printing/Faxing/eTransmitting on: 06/18/2024 03:58 PM CONTRACT AGENT
--- OUTSIDE RECORDS SUMMARY | 2024-08-13 08:45 | XMS_ITS ---
Author Organization [facility] Address [address] [place] [address] Care Team Providers Care Chrome Polisher Name Role Phone Jasen Gonzalez Unavailable [phone] Medications Medication SIG (Take, Route, Frequency, Duration) Notes Start Date End Date Status Losartan Potassium 25 MG 1 tablet Orally Once a day; Duration: 90 day(s) Active Flomax 0.4 MG 1 capsule Orally Onc e a day; Duration: 90 day(s) 03/26/2024 01/11/2025 Active Vitamin D (Ergocalciferol) 1.25 MG (14882 UT) TAKE ONE CAPSULE BY MOUTH ONCE A WEEK; Duration: 90 Active Calcitriol 0.25 MCG 1 capsule Orally Onc e a day; Duration: 90 day(s) Active Encounters Encounter Location Date Provider Diagnosis [place] [facility] [address] [facility] [address] [place] [address] 08/13/2024 Jasen Gonzalez Chronic kidney disease, stage 3a N18.31 ; Essential (primary) hypertension I10 ; Heart failure, unspecified I50.9 ; Anemia, unspecified D64.9 ; Type 2 diabetes mellitus with hyperglycemia E11.65 ; Hypothyroidism, unspecified E03.9 ; CAD (coronary artery disease) I25.10 ; Hyperlipidemia, unspecified E78.5 ; Elevation of levels of liver transaminase levels R74.01 and Elevated prostate specific antigen (PSA) R97.20 Assessments Encounter Date Diagnosis (ICD Code) Assessment Notes Treatment Notes Treatment Clinical Notes Section Notes 08/13/2024 Chronic kidney disease, stage 3a (ICD-10 - N18.31) 08/13/2024 Essential (primary) hypertension (ICD-10 - I10) 08/13/2024 Heart failure, unspecified (ICD-10 - I50.9) 08/13/2024 Anemia, unspecified (ICD-10 - D64.9) 08/13/2024 Type 2 diabetes mellitus with hyperglycemia (ICD-10 - E11.65) 08/13/2024 Hypothyroidism, unspecified (ICD-10 - E03.9) 08/13/2024 CAD (coronary artery disease) (ICD-10 - I25.10) 08/13/2024 Hyperlipidemia, unspecified (ICD-10 - E78.5) 08/13/2024 Elevation of levels of liver transaminase levels (ICD-10 - R74.01) 08/13/2024 Elevated prostate specific antigen (PSA) (ICD-10 - R97.20) Plan Of Treatment Next Appt Details Provider Name:Jasen Carlos , 05/11/2025 03:30:00 PM, [address] [facility], [facility] [address], [place], [address], Progress Notes * RICHARD JAZMÍNDOB:1950 (74 yo M)Acc No.[id number]:08/13/2024 Progress Notes Patient: JAZMÍN PEREZ Provider: Gaviota ANTONIO MD, F.A.C.P, F.A.S.N. :1950 A ge:74 Y S ex:Male Date:08/13/2024 Address:[address] [place], [place] [id number] Subjective: * Chief Complaints: * * Medical History: * Medications: T aking Calcitriol 0.25 MCG Capsule 1 capsule Orally Once a day , Taking Losartan Potassium 25 MG Tablet 1 tablet Orally Once a day , Taking Flomax 0.4 MG Capsule 1 capsule Orally Once a day , stop date 01/11/2025, Taking Vitamin D (Ergocalciferol) 1.25 MG (33815 UT) Capsule TAKE ONE CAPSULE BY MOUTH ONCE A WEEK Objective: * Vitals: Assessment: * Assessment: 1. C hronic kidney disease, stage 3a - N18.31 (Primary) 2 . E ssential (primary) hypertension - I10 3 . H eart failure, unspecified - I50.9 ?4. A nemia, unspecified - D64.9 5 . T ype 2 diabetes mellitus with hyperglycemia - E11.65 6 . H ypothyroidism, unspecified - E03.9 7 .?CAD (coronary artery disease) - I25.10 8 . H yperlipidemia, unspecified - E78.5 9 . E levation of levels of liver transaminase levels - R74.01 10. E levated prostate specific antigen (PSA) - R97.20 Plan: * Treatment: * Billing Information: * Visit Code: 29739 Office Visit, Est Pt., Level 4. * Procedure Codes: * Electronic signature of Cheko Gonzalez MD on 04/18/2025 at 03:58 PM CONTROL VALVE TECHNICIAN Sign off status: Pending * Provider: Gaviota ANTONIO MD, F.A.C.P, F.A.S.N. Date: 0 08/13/2024 Generated for Printing/Faxing/eTransmitting on: 06/18/2024 03:58 PM CONTROL VALVE TECHNICIAN
--- OUTSIDE RECORDS SUMMARY | 2024-09-16 11:15 | XMS_ITS ---
Author Organization [facility] Address [address] [place] [address] Care Team Providers Care Paster Operator Name Role Phone Jasen Gonzalez Unavailable [phone] Problems Problem Type SNOMED Code ICD Code Onset Dates Problem Status W/U Status Risk Notes Problem Elevated PSA (640033755) Elevated prostate specific antigen (PSA) (R97.20) Active confirmed Problem Atrial fibrillation (39962088) Unspecified atrial fibrillation (I48.91) Active confirmed Problem Proteinuria (88504111) Proteinuria, unspecified (R80.9) Active confirmed Problem Tobacco use (153751607) Tobacco use (Z72.0) Active confirmed Encounters Encounter Location Date Provider Diagnosis [place] [facility] [address] [facility] [address] [place] [address] 09/16/2024 Jasen Gonzalez Chronic kidney disease, stage 2 (mild) N18.2 ; Essential (primary) hypertension I10 ; Heart failure, unspecified I50.9 ; Anemia, unspecified D64.9 ; Type 2 diabetes mellitus with hyperglycemia E11.65 ; Hypothyroidism, unspecified E03.9 ; CAD (coronary artery disease) I25.10 ; Hyperlipidemia, unspecified E78.5 ; Elevated prostate specific antigen (PSA) R97.20 ; Unspecified atrial fibrillation I48.91 ; Proteinuria, unspecified R80.9 and Tobacco use Z72.0 Assessments Encounter Date Diagnosis (ICD Code) Assessment Notes Treatment Notes Treatment Clinical Notes Section Notes 09/16/2024 Chronic kidney disease, stage 2 (mild) (ICD-10 - N18.2) 09/16/2024 Essential (primary) hypertension (ICD-10 - I10) 09/16/2024 Heart failure, unspecified (ICD-10 - I50.9) 09/16/2024 Anemia, unspecified (ICD-10 - D64.9) 09/16/2024 Type 2 diabetes mellitus with hyperglycemia (ICD-10 - E11.65) 09/16/2024 Hypothyroidism, unspecified (ICD-10 - E03.9) 09/16/2024 CAD (coronary artery disease) (ICD-10 - I25.10) 09/16/2024 Hyperlipidemia, unspecified (ICD-10 - E78.5) 09/16/2024 Elevated prostate specific antigen (PSA) (ICD-10 - R97.20) 09/16/2024 Unspecified atrial fibrillation (ICD-10 - I48.91) 09/16/2024 Proteinuria, unspecified (ICD-10 - R80.9) 09/16/2024 Tobacco use (ICD-10 - Z72.0) Plan Of Treatment Next Appt Details Provider Name:Jasen Gonzalez , 05/11/2025 03:30:00 PM, [address] [facility], [facility] [address], [address], Progress Notes * JAZMÍN RAMOSDOB:1950 (74 yo M)Acc No.[id number]:09/16/2024 Patient: JAZMÍN PEREZ Provider: Gaviota ANTONIO MD, F.A.C.P, F.A.S.N. :1950 A ge:74 Y S ex:Male Date:09/16/2024 Address:[address] [place], [place] [id number] Subjective: * Chief Complaints: Objective: Assessment: * Assessment: 1. C hronic kidney disease, stage 2 (mild) - N18.2 (Primary) 2 . E ssential (primary) hypertension - I10 3 . H eart failure, unspecified - I50.9 4 . A nemia, unspecified - D64.9 5 . T ype 2 diabetes mellitus with hyperglycemia - E11.65 6 . H ypothyroidism, unspecified - E03.9 7 . C AD (coronary artery disease) - I25.10 8 . H yperlipidemia, unspecified - E78.5 9 . E levated prostate specific antigen (PSA) - R97.20 1 0. U nspecified atrial fibrillation - I48.91 1 1. P roteinuria, unspecified - R80.9 1 2. T obacco use - Z72.0 Plan: * Billing Information: * Visit Code: 84710 Office Visit, Est Pt., Level 5. * Procedure Codes: * Electronic signature of Cheko Gonzalez MD on 04/18/2025 at 04:00 PM MUSEUM ASSISTANT Sign off status: Pending * Provider: Gaviota ANTONIO MD, F.A.C.P, F.A.S.N. Date: 0 09/16/2024 Generated for Printing/Faxing/eTransmitting on: 06/18/2024 04:00 PM MUSEUM ASSISTANT
--- OUTSIDE RECORDS SUMMARY | 2024-09-17 08:15 | XMS_ITS ---
Author Organization [facility] Office Address [address] [facility] 61 [facility] [address] [place] [address] Care Team Providers Care Armature Winder Helper Repair Name Role Phone Carlos Jasen Unavailable [phone] Encounters Encounter Location Date Provider Diagnosis [place] [facility] [address] [facility] 15 [place] [address] 09/17/2024 Jasen Gonzalez Plan Of Treatment Next Appt Details Provider Name:Jasen Carlos , 05/11/2025 03:30:00 PM, [address]43 [facility], [facility] 15, [place], [address], Progress Notes * JAZMÍN RAMOSDOB:1950 (74 yo M)Acc No.[id number]:09/17/2024 Progress Notes Patient: JAZMÍN PEREZ Provider: Gaviota ANTONIO MD, Geno.Sosa.C.P, F.A.S.N. :1950 A ge:74 Y S ex:Male Date:09/17/2024 Address:[address] [place] [address] Subjective: * Chief Complaints: * * Medical History: Objective: * Vitals: Assessment: Plan: * Treatment: * Billing Information: * Visit Code: * Procedure Codes: * Electronic signature of Cheko Gonzalez MD on 04/18/2025 at 03:59 PM ENVIRONMENTAL ENGINEERING PROFESSOR Sign off status: Pending * Provider: Gaviota ANTONIO MD, Geno.Sosa.C.P, F.A.S.N. Date: 09/17/2024 Generated for Printing/Faxing/eTransmitting on: 06/18/2024 03:59 PM ENVIRONMENTAL ENGINEERING PROFESSOR
--- OUTSIDE RECORDS SUMMARY | 2024-10-29 10:00 | XMS_ITS ---
Author Organization [facility] Address [address] [place] [address] Care Team Providers Care Washhouse Worker Name Role Phone Carlos Jasen Unavailable [phone] Problems Problem Type SNOMED Code ICD Code Onset Dates Problem Status W/U Status Risk Notes Problem Elevation of levels of liver transaminase levels (R74.01) Active confirmed Encounters Encounter Location Date Provider Diagnosis [place] [facility] [address] [facility] [address] [place] [address] 10/29/2024 Jasen Gonzalez Chronic kidney disease, stage 2 (mild) N18.2 ; Essential (primary) hypertension I10 ; Heart failure, unspecified I50.9 ; Anemia, unspecified D64.9 ; Type 2 diabetes mellitus with hyperglycemia E11.65 ; Hypothyroidism, unspecified E03.9 ; CAD (coronary artery disease) I25.10 ; Hyperlipidemia, unspecified E78.5 ; Elevated prostate specific antigen (PSA) R97.20 ; Unspecified atrial fibrillation I48.91 ; Proteinuria, unspecified R80.9 ; Tobacco use Z72.0 and Elevation of levels of liver transaminase levels R74.01 Assessments Encounter Date Diagnosis (ICD Code) Assessment Notes Treatment Notes Treatment Clinical Notes Section Notes 10/29/2024 Chronic kidney disease, stage 2 (mild) (ICD-10 - N18.2) 10/29/2024 Essential (primary) hypertension (ICD-10 - I10) 10/29/2024 Heart failure, unspecified (ICD-10 - I50.9) 10/29/2024 Anemia, unspecified (ICD-10 - D64.9) 10/29/2024 Type 2 diabetes mellitus with hyperglycemia (ICD-10 - E11.65) 10/29/2024 Hypothyroidism, unspecified (ICD-10 - E03.9) 10/29/2024 CAD (coronary artery disease) (ICD-10 - I25.10) 10/29/2024 Hyperlipidemia, unspecified (ICD-10 - E78.5) 10/29/2024 Elevated prostate specific antigen (PSA) (ICD-10 - R97.20) 10/29/2024 Unspecified atrial fibrillation (ICD-10 - I48.91) 10/29/2024 Proteinuria, unspecified (ICD-10 - R80.9) 10/29/2024 Tobacco use (ICD-10 - Z72.0) 10/29/2024 Elevation of levels of liver transaminase levels (ICD-10 - R74.01) Plan Of Treatment Next Appt Details Provider Name:Jasen Carlos , 05/11/2025 03:30:00 PM, [address]43 [facility], [facility] [address], [address], Progress Notes * JAZMÍN RMAOSDOB:1950 (74 yo M)Acc No.[id number]:10/29/2024 Patient: JAZMÍN PEREZ Provider: Gaviota ANTONIO MD, F.A.C.P, F.A.S.N. :1950 A ge:74 Y S ex:Male Date:10/29/2024 Address:[address] [place], [place] [id number] Subjective: * Chief Complaints: Objective: Assessment: * [...] 1 2. T obacco use - Z72.0 1 3. E levation of levels of liver transaminase levels - R74.01 Plan: * Billing Information: * Visit Code: 07052 Office Visit, Est Pt., Level 5. * Procedure Codes: * Electronic signature of Cheko Gonzalez MD on 04/18/2025 at 03:59 PM UAT TESTER Sign off status: Pending * Provider: Gaviota ANTONIO MD, F.A.C.P, F.A.S.N. Date: 0 10/29/2024 Generated for Printing/Faxing/eTransmitting on: 1 06/18/2024 03:59 PM UAT TESTER
--- OUTSIDE RECORDS SUMMARY | 2024-12-10 09:15 | XMS_ITS ---
Author Organization [facility] Address [address] [place] [address] Care Team Providers Care Button Riveter Name Role Phone Nicci Gonzalezerjit Unavailable [phone] Problems Problem Type SNOMED Code ICD Code Onset Dates Problem Status W/U Status Risk Notes Problem Chronic kidney disease stage 3A (disorder) (528496713) Chronic kidney disease, stage 3a (N18.31) Active confirmed Encounters Encounter Location Date Provider Diagnosis [place] [facility] [address]43 [facility] [address] [place] [address] 12/10/2024 Jasen Gonzalez Chronic kidney disease, stage 3a [...] Treatment Notes Treatment Clinical Notes Section Notes 12/10/2024 Chronic kidney disease, stage 3a (ICD-10 - N18.31) 12/10/2024 Essential (primary) hypertension (ICD-10 - I10) 12/10/2024 Heart failure, unspecified (ICD-10 - I50.9) 12/10/2024 Anemia, unspecified (ICD-10 - D64.9) 12/10/2024 Type 2 diabetes mellitus with hyperglycemia (ICD-10 - E11.65) 12/10/2024 Hypothyroidism, unspecified (ICD-10 - E03.9) 12/10/2024 CAD (coronary artery disease) (ICD-10 - I25.10) 12/10/2024 Hyperlipidemia, unspecified (ICD-10 - E78.5) 12/10/2024 Elevated prostate specific antigen (PSA) (ICD-10 - R97.20) 12/10/2024 Unspecified atrial fibrillation (ICD-10 - I48.91) 12/10/2024 Proteinuria, unspecified (ICD-10 - R80.9) 12/10/2024 Tobacco use (ICD-10 - Z72.0) 12/10/2024 Elevation of levels of liver transaminase levels (ICD-10 - R74.01) Plan Of Treatment Next Appt Details Provider Name:Jasen Carlos , 05/11/2025 03:30:00 PM, 2043 [facility], [facility] 15, [place], [address], Progress Notes * RICHARDJAZMÍNDOB:1950 (74 yo M)Acc No.[id number]:12/10/2024 Progress Notes Patient: JAZMÍN PEREZ Provider: Gaviota ANTONIO MD, F.A.C.P, F.A.S.N. :1950 A ge:74 Y S ex:Male Date:12/10/2024 Address:[address] [place] [address] Subjective: * Chief Complaints: * * Medical History: Objective: * Vitals: Assessment: * Assessment: 1. [...] specific antigen (PSA) - R97.20 1 0. Unspecified atrial fibrillation - I48.91 1 1. P roteinuria, unspecified - R80.9 1 2. T obacco use - Z72.0 1 3. E levation of levels of liver transaminase levels - R74.01 Plan: * Treatment: * Billing Information: * Visit Code: 58700 Office Visit, Est Pt., Level 4. * Procedure Codes: * Electronic signature of Cheko Gonzalez MD on 04/18/2025 at 03:59 PM MANUFACTURING WEAVER Sign off status: Pending * Provider: Gaviota ANTONIO MD, F.A.C.P, F.A.S.N. Date: 0 12/10/2024 Generated for Printing/Faxing/eTransmitting on: 06/18/2024 03:59 PM MANUFACTURING WEAVER
--- OUTSIDE RECORDS SUMMARY | 2025-02-11 08:15 | XMS_ITS ---
Author Organization [facility] Address [address] [facility] [address] [facility] [address] [place] [address] Care Team Providers Care Equipment Associate Name Role Phone Jasen Gonzalez Unavailable [phone] Encounters Encounter Location Date Provider Diagnosis [place] [facility] [address] [facility] [address] [place] [address] 02/11/2025 Jasen Gonzalez Chronic kidney disease, stage 3a [...] Proteinuria, unspecified R80.9 ; Tobacco use Z72.0 ; Elevation of levels of liver transaminase levels R74.01 and Hypo-osmolality and hyponatremia E87.1 Assessments Encounter Date Diagnosis (ICD Code) Assessment Notes Treatment Notes Treatment Clinical Notes Section Notes 02/11/2025 Chronic kidney disease, stage 3a (ICD-10 - N18.31) 02/11/2025 Essential (primary) hypertension (ICD-10 - I10) 02/11/2025 Heart failure, unspecified (ICD-10 - I50.9) 02/11/2025 Anemia, unspecified (ICD-10 - D64.9) 02/11/2025 Type 2 diabetes mellitus with hyperglycemia (ICD-10 - E11.65) 02/11/2025 Hypothyroidism, unspecified (ICD-10 - E03.9) 02/11/2025 CAD (coronary artery disease) (ICD-10 - I25.10) 02/11/2025 Hyperlipidemia, unspecified (ICD-10 - E78.5) 02/11/2025 Elevated prostate specific antigen (PSA) (ICD-10 - R97.20) 02/11/2025 Unspecified atrial fibrillation (ICD-10 - I48.91) 02/11/2025 Proteinuria, unspecified (ICD-10 - R80.9) 02/11/2025 Tobacco use (ICD-10 - Z72.0) 02/11/2025 Elevation of levels of liver transaminase levels (ICD-10 - R74.01) 02/11/2025 Hypo-osmolality and hyponatremia (ICD-10 - E87.1) Plan Of Treatment Next Appt Details Provider Name:Jasen Carlos , 05/11/2025 03:30:00 PM, [address] [facility], [facility] [address], [place], [address], Progress Notes * JAZMÍN RAMOSDOB:1950 (74 yo M)Acc No.[id number]:02/11/2025 Patient: JAZMÍN PEREZ Provider: Gaviota ANTONIO MD, F.A.C.P, F.A.S.N. :1950 A ge:74 Y S ex:Male Date:02/11/2025 Address:[address] [place], [place] [id number] Subjective: * Chief Complaints: Objective: Assessment: * [...] levels of liver transaminase levels - R74.01 1 4. H ypo-osmolality and hyponatremia - E87.1? Plan: * Billing Information: * Visit Code: 93553 Office Visit, Est Pt., Level 5. * Procedure Codes: * Electronic signature of Cheko Gonzalez MD on 04/18/2025 at 03:58 PM INTERNATIONAL RELATIONS PROFESSOR Sign off status: Pending * Provider: Gaviota ANTONIO MD, F.A.C.P, F.A.S.N. Date: 0 02/11/2025 Generated for Printing/Faxing/eTransmitting on: 06/18/2024 03:58 PM INTERNATIONAL RELATIONS PROFESSOR
--- OUTSIDE RECORDS SUMMARY | 2025-04-15 11:00 | XMS_ITS ---
Author Organization [facility] Address [address] [facility] [address] [facility] [address] [place] [address] Care Team Providers Care Clinical Specialty Rep Name Role Phone Jasen Gonzalez Unavailable [phone] REASON FOR VISIT R/S 05/11 Encounters Encounter Location Date Provider Diagnosis [facility] [address] [place] [address] 04/15/2025 I rita Gonzalez Plan Of Treatment Next Appt Details Provider Name:Jasen Gonzalez , 05/11/2025 03:30:00 PM, [address] [facility], [facility] [address], [place], [address], Progress Notes * JAZMÍN RAMOSDOB:1950 (74 yo M)Acc No.[id number]:04/15/2025 Progress Notes Patient: JAZMÍN PEREZ Provider: Gaviota ANTONIO MD, Geno.Sosa.C.P, F.A.S.N. :1950 A ge:74 Y S ex:Male Date:04/15/2025 Address:[address] [place], [place] [id number] Subjective: * Chief Complaints: Objective: Assessment: Plan: * Billing Information: * Visit Code: * Procedure Codes: * Electronic signature of Cheko Gonzalez MD on 04/18/2025 at 03:58 PM SALES PROFESSIONAL BILINGUAL Sign off status: Pending * Provider: Gaviota ANTONIO MD, Geno.Sosa.C.P, F.A.S.N. Date: Generated for Printing/Faxing/eTransmitting on: 06/18/2024 03:58 PM SALES PROFESSIONAL BILINGUAL
--- NOTE | ~2025-04-18 | CT_ITS ---
EXAMINATION: CT lung screening DATE: 04/18/2025 16:12 INDICATION: Personal history of nicotine dependence TECHNIQUE: Computed tomography (CT) of the chest was performed without intravenous contrast. The dose-length product was 85.94 mGy-cm. Automated exposure control and iterative reconstruction technique were employed. COMPARISON: Chest x-ray dated 12/27/2024 FINDINGS: Cardiomegaly. Status post median sternotomy for CABG. There is atherosclerosis of the aorta and coronary arteries. No significant pleural or pericardial effusion. No thoracic lymphadenopathy. No endobronchial lesions. No pneumothorax. No focal airspace consolidation. No endobronchial lesions. Mild emphysema. Small 2 mm fissural nodule on the left, likely benign. Moderate thoracic spondylosis. Pacemaker leads are in expected position. IMPRESSION: 1. Lung-RADS category 2: Benign appearance or behavior. Continue annual screening with noncontrast low-dose chest CT in 12 months. Reviewed, dictated and finalized at location [facility]. R CASTING MACHINE SETUP OPERATOR IMPRESSION: 1. Lung-RADS category 2: Benign appearance or behavior. Continue annual screeni ng with noncontrast low-dose chest CT in 12 months.
--- OUTSIDE RECORDS SUMMARY | 2025-04-18 15:59 | XMS_ITS | Patient Health Record ---
Author Organization [facility] Address [address] [place] [address] Care Team Providers Care Icer Air Conditioning Name Role Phone Jasen Gonzalez Unavailable [phone] Reason For Referral No Information Medications Medication SIG (Take, Route, Frequency, Duration) Notes Start Date End Date Status Tobramycin 0.3 % 1 drop into affected eye Ophthalmic Four times a day; Duration: 3 days 12/10/2024 Active Calcitriol 0.25 MCG TAKE 1 CAPSULE BY MO UTH DAILY; Duration: 90 Active Losartan Potassium 25 MG TAKE 1 TABLET B Y MOUTH DAILY; Duration: 90 Active Tamsulosin HCl 0.4 MG TAKE 1 CAPSULE BY MOUTH DAILY; Duration: 90 Active Vitamin D (Ergocalciferol) 1.25 MG (86637 UT) TAKE ONE CAPSULE BY MOUTH ONCE A WEEK; Duration: 90 Active Problems Problem Type SNOMED Code ICD Code Onset Dates Problem Status W/U Status Risk Notes Problem Anemia (900848933) Anemia, unspecified (D64.9) Active confirmed Problem Hypothyroidism (17346771) Hypothyroidism, unspecified (E03.9) Active confirmed Problem Hyperglycemia due to type 2 diabetes mellitus (314842867219464) Type 2 diabetes mellitus with hyperglycemia (E11.65) Active confirmed Problem Hyperlipidemia (09216528) Hyperlipidemia, unspecified (E78.5) Active confirmed Problem Essential hypertension (62720413) Essential (primary) hypertension (I10) Active confirmed Problem Atrial fibrillation (19291384) Unspecified atrial fibrillation (I48.91) Active confirmed Problem Heart failure (98784566) Heart failure, unspecified (I50.9) Active confirmed Problem Proteinuria (10683796) Proteinuria, unspecified (R80.9) Active confirmed Problem Tobacco use (897919125) Tobacco use (Z72.0) Active confirmed Problem Elevated PSA (895440250) Elevated prostate specific antigen (PSA) (R97.20) Active confirmed Problem Chronic kidney disease stage 3A (disorder) (755548035) Chronic kidney disease, stage 3a (N18.31) Active confirmed Problem Elevation of levels of liver transaminase levels (R74.01) Active confirmed Problem Coronary artery disease (90113341) CAD (coronary artery disease) (I25.10) Active confirmed Encounters Encounter Location Date Provider Diagnosis [facility] [address] [place] [address] 07/08/2024 Jasen Gonzalez Chronic kidney disease, stage 3a N18.31 ; CAD (coronary artery disease) I25.10 ; Hyperkalemia E87.5 and Hyperlipidemia, unspecified E78.5 [facility] [address] [place] [address] 08/13/2024 Jasen Singh Chronic kidney disease, stage 3a N18.31 ; Essential (primary) hypertension I10 ; Heart failure, unspecified I50.9 ; Anemia, unspecified D64.9 ; Type 2 diabetes mellitus with hyperglycemia E11.65 ; Hypothyroidism, unspecified E03.9 ; CAD (coronary artery disease) I25.10 ; Hyperlipidemia, unspecified E78.5 ; Elevation of levels of liver transaminase levels R74.01 and Elevated prostate specific antigen (PSA) R97.20 [facility] [address] [place] [address] 09/16/2024 Jasen Gonzalez Chronic kidney disease, stage [...] Proteinuria, unspecified R80.9 and Tobacco use Z72.0 [facility] [address] [place] [address] 09/17/2024 Jasen [facility] [address] [place] [address] 10/29/2024 Jasen Gonzalez Chronic kidney disease, stage [...] of levels of liver transaminase levels R74.01 [facility] [address] [place] [address] 12/10/2024 Jasen Gonzalez Chronic kidney disease, stage [...] of levels of liver transaminase levels R74.01 [facility] [address] [place] [address] 02/11/2025 Jasen Gonzalez Chronic kidney disease, stage [...] levels R74.01 and Hypo-osmolality and hyponatremia E87.1 [facility] [address] [place] [address] 12/10/2024 Jasen Jennings [address] [place] [address] 03/22/2025 Jasen Jennings [address] [place] [address] 03/22/2025 Jasen Gonzalez Assessments Encounter Date Diagnosis (ICD [...] Essential (primary) hypertension (ICD-10 - I10) 02/11/2025 Chronic kidney disease, stage 3a (ICD-10 - N18.31) 02/11/2025 Heart failure, unspecified (ICD-10 - I50.9) 12/10/2024 Essential (primary) hypertension (ICD-10 - I10) 10/29/2024 Essential (primary) hypertension (ICD-10 - I10) 09/16/2024 Essential (primary) hypertension (ICD-10 - I10) 08/13/2024 Heart failure, unspecified (ICD-10 - I50.9) 07/08/2024 Hyperkalemia (ICD-10 - E87.5) 07/08/2024 Hyperlipidemia, unspecified (ICD-10 - E78.5) 08/13/2024 Anemia, unspecified (ICD-10 - D64.9) 09/16/2024 Heart failure, unspecified (ICD-10 - I50.9) 10/29/2024 Heart failure, unspecified (ICD-10 - I50.9) 12/10/2024 Heart failure, unspecified (ICD-10 - I50.9) 02/11/2025 Anemia, unspecified (ICD-10 - D64.9) 02/11/2025 Type 2 diabetes mellitus with hyperglycemia (ICD-10 - E11.65) 12/10/2024 Anemia, unspecified (ICD-10 - D64.9) 10/29/2024 Anemia, unspecified (ICD-10 - D64.9) 08/13/2024 Type 2 diabetes mellitus with hyperglycemia (ICD-10 - E11.65) 09/16/2024 Anemia, unspecified (ICD-10 - D64.9) 08/13/2024 Hypothyroidism, unspecified (ICD-10 - E03.9) 09/16/2024 Type 2 diabetes mellitus with hyperglycemia (ICD-10 - E11.65) 10/29/2024 Type 2 diabetes mellitus with hyperglycemia (ICD-10 - E11.65) 02/11/2025 Hypothyroidism, unspecified (ICD-10 - E03.9) 12/10/2024 Type 2 diabetes mellitus with hyperglycemia (ICD-10 - E11.65) 02/11/2025 CAD (coronary artery disease) (ICD-10 - I25.10) 10/29/2024 Hypothyroidism, unspecified (ICD-10 - E03.9) 12/10/2024 Hypothyroidism, unspecified (ICD-10 - E03.9) 08/13/2024 CAD (coronary artery disease) (ICD-10 - I25.10) 09/16/2024 Hypothyroidism, unspecified (ICD-10 - E03.9) 08/13/2024 Hyperlipidemia, unspecified (ICD-10 - E78.5) 10/29/2024 CAD (coronary artery disease) (ICD-10 - I25.10) 09/16/2024 CAD (coronary artery disease) (ICD-10 - I25.10) 12/10/2024 CAD (coronary artery disease) (ICD-10 - I25.10) 02/11/2025 Hyperlipidemia, unspecified (ICD-10 - E78.5) 12/10/2024 Hyperlipidemia, unspecified (ICD-10 - E78.5) 02/11/2025 Elevated prostate specific antigen (PSA) (ICD-10 - R97.20) 10/29/2024 Hyperlipidemia, unspecified (ICD-10 - E78.5) 08/13/2024 Elevation of levels of liver transaminase levels (ICD-10 - R74.01) 09/16/2024 Hyperlipidemia, unspecified (ICD-10 - E78.5) 08/13/2024 Elevated prostate specific antigen (PSA) (ICD-10 - R97.20) 09/16/2024 Elevated prostate specific antigen (PSA) (ICD-10 - R97.20) 10/29/2024 Elevated prostate specific antigen (PSA) (ICD-10 - R97.20) 02/11/2025 Unspecified atrial fibrillation (ICD-10 - I48.91) 12/10/2024 Elevated prostate specific antigen (PSA) (ICD-10 - R97.20) 12/10/2024 Unspecified atrial fibrillation (ICD-10 - I48.91) 02/11/2025 Proteinuria, unspecified (ICD-10 - R80.9) 10/29/2024 Unspecified atrial fibrillation (ICD-10 - I48.91) 09/16/2024 Unspecified atrial fibrillation (ICD-10 - I48.91) 09/16/2024 Proteinuria, unspecified (ICD-10 - R80.9) 10/29/2024 Proteinuria, unspecified (ICD-10 - R80.9) 02/11/2025 Tobacco use (ICD-10 - Z72.0) 12/10/2024 Proteinuria, unspecified (ICD-10 - R80.9) 12/10/2024 Tobacco use (ICD-10 - Z72.0) 02/11/2025 Elevation of levels of liver transaminase levels (ICD-10 - R74.01) 10/29/2024 Tobacco use (ICD-10 - Z72.0) 09/16/2024 Tobacco use (ICD-10 - Z72.0) 10/29/2024 Elevation of levels of liver transaminase levels (ICD-10 - R74.01) 12/10/2024 Elevation of levels of liver transaminase levels (ICD-10 - R74.01) 02/11/2025 Hypo-osmolality and hyponatremia (ICD-10 - E87.1) Plan Of Treatment Next Appt Details Provider Name:Jasen Gonzalez , 05/11/2025 03:30:00 PM, [address], [facility], [place], [address],
--- OUTSIDE RECORDS SUMMARY | 2025-04-18 15:59 | XMS_ITS | Clinical Summary ---
Author Organization [facility] Address [address] [place] [address] Care Team Providers Care Powered Bridge Specialist Name Role Phone Unavailable Primary Care Provider [...] 1996 Zoster Immunization (1 of 2) 2001 Influenza Immunization (#1) 02/14/202504/16, 03/09/2019, 03/24/2018, Additional history exists SARS-COV-2 Immunization (2024- season) 2025 02/08/2022, 05/28/2021, 09/11/2020, Additional history exists Respiratory Syncytial Virus (RSV) [...]
== END 2025-04-18 15:50 | disposition home or self-care (01) ==
PROVIDERS: PCP Emergency Medicine; Visit Provider Emergency Medicine
DX: Z12.2 Encounter for screening for malignant neoplasm of respiratory organs (principal); Z87.891 Personal history of nicotine dependence
CPT/HCPCS: 71271